=== PATIENT | female | born 1960 | race Caucasian/White ===

== ENCOUNTER 2020-06-16 13:33 | Outpatient (REF) | payer OTHER, SELFPAY ==
[2020-06-16 13:59] LABS: COVID-19 Test Negative (Negative)
== END 2020-06-16 13:34 | disposition home or self-care (01) ==
LOC: HO.LAB 13:33
PROVIDERS: Visit Provider Internal Medicine
DX: Z20.828 Contact with and (suspected) exposure to other viral communicable diseases (principal)
CPT/HCPCS: 87635

== ENCOUNTER 2020-07-20 07:26 | Day surgery (SDC) | payer OTHER, SELFPAY ==
[2020-07-09 11:06] VITALS: BMI 39.9
--- NOTE | 2020-07-13 15:24 | P.CONAN_ITS ---
Documented by User: Lissa Mendez 07/13/20 15:24 HPI - Anesthesia Eval Consult details Narrative: 59yo F for Upper Endoscopy and Colonoscopy [facility] Past Medical History Medical History (Updated 07/20/20 @ 08:17 by Yvette Rizzo) Hypertension IBS (irritable bowel syndrome) Increased BMI Migraines Surgical History Surgical History History of incisional hernia repair Hx of cholecystectomy Hx of shoulder surgery Hx of tonsillectomy Hx of total hysterectomy with removal of both tubes and ovaries Social History Social History Are you a primary out of school hours care worker to a significant other at home: No Do you presently have visiting nurse or other home services: No Smoking Status: Former smoker Smoking Quit Date: > 35 yrs ago Advance Directives: No Advance Directives Information Provided: No Advance Directives on File: No Meds Allergies Allergy/AdvReac Type Severity Reaction Status Date / Time No Known Allergies Allergy Verified 07/20/20 08:10 Home Medications Medication Instructions Recorded Confirmed Type dicyclomine 10 mg PO Q4-6H PRN 07/09/20 07/09/20 History lisinopril-hydrochlorothiazide 1 tab PO DAILY 07/09/20 07/09/20 History Exam Exam Date and Time: July 13, 2020 1524 Height,Weight and Vital Signs: Height 5 ft 5 in Weight 108.862 kg Assessment and Plan Assessment Anesthesia Assessment: Chart Reviewed Documented by User: Yvette Rizzo 07/20/20 08:19 [facility] Past Medical History Medical History (Updated 07/20/20 @ 08:17 by Yvette Rizzo) Hypertension IBS (irritable bowel syndrome) Increased BMI Migraines Family History Family history of problems with anesthesia: No Surgical History Surgical History History of incisional hernia repair Hx of cholecystectomy Hx of shoulder surgery Hx of tonsillectomy Hx of total hysterectomy with removal of both tubes and ovaries History of Problems with Anesthesia: No Social History Social History Are you a primary out of school hours care worker to a significant other at home: No Do you presently have visiting nurse or other home services: No Smoking Status: Former smoker Smoking Quit Date: > 35 yrs ago Advance Directives: No Advance Directives Information Provided: No Advance Directives on File: No Meds Allergies Allergy/AdvReac Type Severity Reaction Status Date / Time No Known Allergies Allergy Verified 07/20/20 08:10 Home Medications Medication Instructions Recorded Confirmed Type dicyclomine 10 mg PO Q4-6H PRN 07/09/20 07/09/20 History lisinopril-hydrochlorothiazide 1 tab PO DAILY 07/09/20 07/09/20 History Exam Height,Weight and Vital Signs: Vital Signs Temp Pulse Resp BP Pulse Ox 07/20/20 08:07 97.5 F 56 18 165/98 H 97 Airway Mallampati Class: III TM Dist: >3cm Neck ROM: Full Loose/Missing/Broken Teeth: Yes (Broken- 2 incisors top, back- top Right, top Left) Heart: RRR Lungs: CTAB Assessment and Plan Assessment Anesthesia Assessment: Anesthesia Plan Discussed and Chart Reviewed Final Anesthetic Review NPO: Yes ASA Class: III Final Preanesthetic Review: No Changes in Pt Med Stat, Meds/Allgs Chart Reviewed, Consent Obtained/Reviewed and Anes Risks/Benef Reviewed Patient Risk: Low Procedure Risk: Low Anesthetic Plan Anesthetic Plan: MAC: Disposition: Standard PACU
[2020-07-20 08:07] VITALS: BP 165/98; PULSE 56; RESP 18; TEMP 36.4; O2SAT 97
[2020-07-20] MEDS: Lactated Ringers 1,000 ML 100 ML IVCONT (08:12)
[2020-07-20 09:30] VITALS: BP 121/60; PULSE 64; RESP 16; TEMP 36.2; O2SAT 97
--- NOTE | 2020-07-20 09:34 | PM.OP ---
Brief Operative Note Date of Service: 07/20/20 Pre-op diagnosis: Abnormal Barium swallow, Screening Post-op diagnosis: other (Hiatal hernia, GERD, Rectal polyps, Diverticulosis) Procedure: EGD with biopsies and Colonoscopy to cecum and TI with biopsy and removal of polyps Surgeon: Morales Deras Anesthesia: MAC Estimated blood loss (mL): 3.0 Pathology: other (A. EG Junction at 36cm B.Rectal polyps) Condition: stable Disposition: PACU
[2020-07-20 09:45] VITALS: BP 129/69; PULSE 55; RESP 16; TEMP 36.2; O2SAT 97
[2020-07-20 09:59] VITALS: BP 125/52; PULSE 57; RESP 16; O2SAT 97
--- NOTE | 2020-07-20 10:05 | OP_ITS ---
SURGEON: Morales Deras MD INDICATIONS: The patient presents for evaluation of colorectal cancer screening and abdominal discomfort, as well as a somewhat abnormal barium swallow. Full consent has been obtained from her for both procedures, including risks of bleeding and perforation. PREOPERATIVE DIAGNOSIS: POSTOPERATIVE DIAGNOSIS: PROCEDURE PERFORMED: Esophagogastroduodenoscopy with biopsies and colonoscopy to cecum and terminal ileum with biopsy and removal of polyps. ESTIMATED BLOOD LOSS: COMPLICATIONS: ANESTHESIA: Monitored anesthesia care. ASSISTANTS: SPECIMENS: PREOPERATIVE DIAGNOSES: Abdominal discomfort, abnormal barium swallow, colorectal cancer screening. POSTOPERATIVE DIAGNOSES: Abdominal discomfort, abnormal barium swallow, colorectal cancer screening, small hiatal hernia, gastroesophageal reflux, small rectal polyps, diverticulosis, and internal hemorrhoids. DESCRIPTION OF PROCEDURE: The patient was placed in the left lateral decubitus position. The Olympus video gastroscope was passed in the posterior oropharynx and upper esophagus under direct vision. The scope was passed slowly into the distal esophagus. The gastroesophageal junction appeared at 36 cm. There was some slight irregularity and erythema, but no evidence of any esophagitis, definitive Prince's mucosa, nor any lesions. The scope was advanced to the pylorus and the duodenum was cannulated to the descending portion. The duodenum including the bulb appeared normal without mass or ulceration. The scope was withdrawn back into the stomach. The gastric antrum and body appeared normal with good peristalsis. The scope was retroflexed visualizing the proximal stomach carefully, which appeared normal, without any sign of mass or ulceration. The scope was straightened and withdrawn back in the esophagus. There was a small hiatal hernia noted. Biopsies were obtained at the EG junction at 36 cm. Proximal to this, the esophageal mucosa appeared normal. The proximal esophagus appeared normal as well without any sign of stricture nor web. There were no proximal esophageal rings. The scope was withdrawn from the patient. She was turned around for the colonoscopy. The digital rectal exam revealed no abnormalities. The Olympus video pediatric colonoscope was entered into the rectum and advanced easily to the cecum. Once in the cecum, I did identify normal-appearing cecal pouch with appendiceal orifice and a normal-appearing ileocecal valve. The terminal ileum was cannulated and appeared normal. Scope was withdrawn back in the colon. The entire cecum and ileocecal valve appeared normal. The scope was slowly withdrawn assessing all mucosal surfaces carefully. Preparation was excellent. There was a mild amount of sigmoid diverticulosis. I did not visualize any sign of colitis nor angiodysplasia. In the rectum, were flat less than 5 mm probable hyperplastic polyps, which were biopsied and completely removed with cold biopsy forceps. The scope was retroflexed visualizing some small internal hemorrhoids as well. The scope was straightened out and withdrawn from the patient. She tolerated both procedures well and was returned to the recovery area in stable condition. IMPRESSION: 1. Small rectal polyp, status post biopsy and removal. 2. Sigmoid diverticulosis. 3. Internal hemorrhoids. 4. Small hiatal hernia, gastroesophageal reflux. PLAN: The results of the biopsies will be checked. If the colon polyps are only hyperplastic, I would recommend a followup colonoscopy in 10 years. If they have to be a tubular adenoma, I would recommend a followup colonoscopy in 5 years. She is currently not having any upper GI complaints whatsoever and denies any significant heartburn nor dysphagia. As such, I do not think she needs to be treated for any reflux at this time, even if there is a small area of Prince's mucosa. If there is Prince's mucosa, without dysplasia, I would recommend a repeat upper endoscopy in 3 years. She is scheduled for an abdominal ultrasound. This has been discussed with her daughter. MD EFRAÍN Keene/ISIDRA / [phone]
== END 2020-07-20 23:59 | disposition home or self-care (01) ==
PROVIDERS: PCP Internal Medicine; Visit Provider Internal Medicine
PROC: (CPT 43239; principal; 2020-07-20 08:30)
DX: Z12.11 Encounter for screening for malignant neoplasm of colon (principal); K57.30 Diverticulosis of large intestine without perforation or abscess without bleeding; K64.8 Other hemorrhoids; K62.1 Rectal polyp; R13.14 Dysphagia, pharyngoesophageal phase; R93.3 Abnormal findings on diagnostic imaging of other parts of digestive tract; K44.9 Diaphragmatic hernia without obstruction or gangrene; K21.9 Gastro-esophageal reflux disease without esophagitis; I10 Essential (primary) hypertension; Z79.899 Other long term (current) drug therapy; Z90.49 Acquired absence of other specified parts of digestive tract
CPT/HCPCS: 43239; 45380; 88305

== ENCOUNTER 2020-09-10 13:32 | Outpatient (REF) | payer OTHER, SELFPAY ==
[2020-09-10 13:50] LABS: COVID-19 Test Negative (Negative)
== END 2020-09-10 13:33 | disposition home or self-care (01) ==
LOC: HO.EMPCOV 13:32
PROVIDERS: Visit Provider Internal Medicine
DX: Z20.822 Contact with and (suspected) exposure to COVID-19 (principal)
CPT/HCPCS: 36415; 87635; C9803

== ENCOUNTER 2020-09-16 08:17 | Outpatient (REF) | payer OTHER, SELFPAY ==
--- NOTE | 2020-09-16 | US_ITS ---
EXAMINATION: US ABDOMEN LIMITED CLINICAL INFORMATION: Abdominal pain. COMPARISON: None TECHNIQUE: Real-time imaging of the right upper quadrant abdominal viscera. FINDINGS: PANCREAS: Normal. LIVER: Liver echotexture is slightly increased. The liver is normal in size. The liver contour is normal. No focal hepatic lesion. There is no intrahepatic biliary duct dilatation seen. GALLBLADDER: Surgically absent. COMMON BILE DUCT: Normal in caliber measuring 0.9 cm in diameter. RIGHT KIDNEY: There is a 3 mm echogenic density in the lower pole questionable for a stone. No hydronephrosis or focal parenchymal lesions. The kidney measures 11.6 cm in maximum dimension. FREE FLUID: None. US/US abdomen limited IMPRESSION: Echogenic liver probably representing fatty infiltration. Postcholecystectomy. Question small right renal stone.
== END 2020-09-16 08:18 | disposition home or self-care (01) ==
LOC: HO.US 08:17
PROVIDERS: PCP Internal Medicine; Visit Provider Internal Medicine
DX: R10.33 Periumbilical pain (principal)
CPT/HCPCS: 76705

== ENCOUNTER 2020-12-31 15:17 | Outpatient (REF) | payer OTHER, SELFPAY ==
--- NOTE | ~2020-12-31 | XR_ITS ---
EXAMINATION: XR CHEST CLINICAL INFORMATION: Pain COMPARISON: Previous chest x-ray October 2017 TECHNIQUE: 2 views of the chest were obtained. FINDINGS: The cardiac and mediastinal contours are stable. The lungs are clear. There is no pleural effusion or pneumothorax. There are degenerative changes of the spine. There are postsurgical changes to the right shoulder. XR/XR chest 2V IMPRESSION: No evidence for acute disease in the chest.
--- NOTE | ~2020-12-31 | XR_ITS ---
EXAMINATION: BILATERAL HIP X-RAY CLINICAL INFORMATION: Pain COMPARISON: Previous x-ray July 2015 TECHNIQUE: 2 views of each hip FINDINGS: Right hip: Bone alignment is normal. No fracture or dislocation is seen. The joint space is normal. Soft tissues are normal. Left hip: Bone alignment is normal. No fracture or dislocation is seen. There is arthritis with joint space narrowing, small osteophytes and question some subchondral cyst formation. This is increased from July 2015 exam. There are postsurgical changes from left lower abdominal wall hernia repair. XR/XR hip LT min 2V IMPRESSION: Left hip arthritis increased from 2015. Normal-appearing right hip.
--- NOTE | ~2020-12-31 | XR_ITS ---
EXAMINATION: BILATERAL HIP X-RAY CLINICAL INFORMATION: Pain COMPARISON: Previous x-ray July 2015 TECHNIQUE: 2 views of each hip FINDINGS: Right hip: Bone alignment is normal. No fracture or dislocation is seen. The joint space is normal. Soft tissues are normal. Left hip: Bone alignment is normal. No fracture or dislocation is seen. There is arthritis with joint space narrowing, small osteophytes and question some subchondral cyst formation. This is increased from July 2015 exam. There are postsurgical changes from left lower abdominal wall hernia repair. XR/XR hip RT min 2V IMPRESSION: Left hip arthritis increased from 2015. Normal-appearing right hip.
[2020-12-31 17:40] LABS: MANUAL DIFF FLAG NO
[2020-12-31 17:48] LABS: Basophils Percent Auto 0.2 % (0-2); Eosinophils Absolute Auto 0.3 X10*3/uL (0.0-0.4); Eosinophils Percent Auto 2.8 % (0-4); Hemoglobin 12.8 g/dl (12.0-16.0); Imm Gran Abs Auto 0.04 X10*3/uL (0.00-0.03); Imm Gran Pct Auto 0.4 % (0.0-0.4); Lymphocytes Absolute Auto 2.6 X10*3/uL (1.2-4.9); Lymphocytes Percent Auto 26.3 % (20-40); Mean Corpuscular HGB Conc 31.2 g/dl (31.0-35.0); Mean Corpuscular Hemoglobin 27.5 pg (27.0-33.0); Mean Corpuscular Volume 88.2 fL (80-98); Mean Platelet Volume 10.9 fL (9.4-12.3); Monocytes Percent Auto 10.4 % (2-11); Neutrophils Absolute Auto 5.9 X10*3/uL (2.0-8.3); Neutrophils Percent Auto 59.9 % (45-73); Platelet Count 363 X10*3/uL (160-400); Red Blood Count 4.65 X10*6/uL (4.20-5.50); Red Cell Distribution Width 13.5 % (11.0-16.0); White Blood Count 9.8 X10*3/uL (4.8-10.8)
[2020-12-31 18:05] LABS: Alanine Aminotransferase 27 U/L (0-31); Albumin Level 4.4 g/dL (3.5-5.0); Alkaline Phosphatase 76 U/L (39-117); Anion Gap 15 (12-20); Aspartate Amino Transferase 24 U/L (5-31); Bilirubin Direct < 0.2 mg/dL (0.0-0.5); Bilirubin Total 0.4 mg/dL (0.0-1.0); Blood Urea Nitrogen 20 mg/dL (9-16); Calcium 9.4 mg/dL (8.4-10.2); Carbon Dioxide 24 mmol/L (22-29); Chloride 106 mmol/L (96-108); Cholesterol 264 mg/dL; Estimated Glomerular Filt Rate > 60; Glucose Random 95 mg/dL (60-115); HDL Cholesterol 46 mg/dL; LDL Cholesterol Calculated 188 mg/dl; Potassium 3.9 mmol/L (3.3-5.1); Sodium 141 mmol/L (135-145); Total Protein 7.4 g/dL (6.5-8.0); Triglycerides 151 mg/dL
[2020-12-31 18:28] LABS: T4 Thyroxine 5.7 ug/dL (4.5-12.0); Thyroid Stimulating Hormone 5.18 uIU/mL (0.32-4.0)
[2020-12-31 18:34] LABS: Folate 4.5 ng/mL (> or = 4.0); Vitamin B12 350 pg/mL (200-900)
[2020-12-31 18:41] LABS: Erythrocyte Sedimentation Rate 10 MM/HR (0-20)
[2021-01-03 20:42] LABS: Anti Nuclear Antibody Screen NEGATIVE (NEGATIVE)
== END 2020-12-31 15:18 | disposition home or self-care (01) ==
LOC: HO.LAB 15:17
PROVIDERS: Visit Provider Internal Medicine
DX: E78.5 Hyperlipidemia, unspecified (principal); I10 Essential (primary) hypertension
CPT/HCPCS: 36415; 71046; 73502; 80048; 80061; 80076; 82607; 82746; 84436; 84443; 85025; 85652; 86038; 86039

== ENCOUNTER 2021-01-05 13:38 | Outpatient (REF) | payer OTHER, SELFPAY ==
[2021-01-05 17:07] LABS: Glucose Urine UA NEG (NEG); Leukocyte Esterase Urine 1+ (NEG); Nitrite Urine NEG (NEG); PH 5.5 (5.0-8.0); Urine Blood NEG (NEG); Urine Ketones NEG (NEG); Urine Protein NEG (NEG-TRACE)
[2021-01-05 17:58] LABS: Appearance Urine CLEAR; Color Urine YELLOW
[2021-01-05 18:03] LABS: Creatinine Urine 98.92 mg/dL; Microalbum/Creatinine Ratio Ur 32.3 ug/mg cr
[2021-01-05 18:38] LABS: RBC Urine 0 /HPF (0); Renal Epithelial Cells Urine 1+ /LPF; Squamous Epithelial Cell Urine 1+ /LPF
== END 2021-01-05 13:39 | disposition home or self-care (01) ==
LOC: HO.LNPL 13:38
PROVIDERS: Visit Provider Internal Medicine
DX: E78.5 Hyperlipidemia, unspecified (principal); I10 Essential (primary) hypertension
CPT/HCPCS: 81001; 81003; 82043

== ENCOUNTER 2021-01-07 13:32 | Outpatient (REF) | payer OTHER, SELFPAY ==
[2021-01-07 13:51] LABS: COVID-19 Test Negative (Negative)
== END 2021-01-07 13:33 | disposition home or self-care (01) ==
LOC: HO.EMPCOV 13:32
PROVIDERS: Visit Provider Internal Medicine
DX: Z20.822 Contact with and (suspected) exposure to COVID-19 (principal)
CPT/HCPCS: 36415; 87635; C9803

== ENCOUNTER 2021-02-17 13:57 | Outpatient (REF) | payer OTHER, SELFPAY ==
[2021-02-17 15:12] LABS: Anion Gap 12 (12-20); Blood Urea Nitrogen 16 mg/dL (9-16); Calcium 9.3 mg/dL (8.4-10.2); Carbon Dioxide 26 mmol/L (22-29); Chloride 108 mmol/L (96-108); Estimated Glomerular Filt Rate > 60; Glucose Random 102 mg/dL (60-115); Potassium 3.7 mmol/L (3.3-5.1); Sodium 142 mmol/L (135-145)
== END 2021-02-17 13:58 | disposition home or self-care (01) ==
LOC: HO.LAB 13:57
PROVIDERS: PCP Internal Medicine; Visit Provider Internal Medicine
DX: R79.89 Other specified abnormal findings of blood chemistry (principal)
CPT/HCPCS: 36415; 80048

== ENCOUNTER 2021-02-18 08:42 | Outpatient (REF) | payer OTHER, SELFPAY ==
--- NOTE | ~2021-02-18 | CT_ITS ---
EXAMINATION: CT ANGIOGRAM BRAIN, HEAD CLINICAL INFORMATION: Headache. COMPARISON: None TECHNIQUE: Test bolus sequences followed by intravenous administration 100 mL of Omnipaque 350 intravenous contrast. Helical imaging was performed in the axial plane from the skull base to the vertex. Delayed postcontrast imaging of the head was also performed. The data was processed at the certified performance technologist workstation for generation of MIP sequences. Three-dimensional volume rendered reformatted images were also generated at an offline 3-D workstation. Stenoses are made with reference to the NASCET criteria unless otherwise specified. This CT examination was performed using dose optimization techniques as appropriate, variously including the following: *Automated exposure control *Adjustment of mA and/or kV according to patient size (this includes techniques or standardized protocols for targeted exams where dose is matched to indication/reason for exam; i.e. extremities or head) *Use of iterative reconstruction technique DLP: 2128 mGy-cm FINDINGS: UNENHANCED AND IV CONTRAST-ENHANCED CT OF THE HEAD: The ventricles and sulci are normal in size and configuration. No focal parenchymal lesions in the brain are identified. No intracranial hemorrhage, tumors or acute infarcts are visualized. Minimal segmental calcific atherosclerotic plaques are identified within the cavernous portions of the internal carotid arteries. No abnormal enhancement of the brain parenchyma is visualized. Normal intraluminal opacification is noted within the major intracranial dural sinuses. The maxillary sinuses are partially included in the imaged [id number]. Near-complete opacification of the visualized left maxillary sinus is noted along with concentric mural thickening and sclerosis of the maxillary sinus. Subsequent CT angiographic images include the entirety of the maxillary sinuses and demonstrate partial visualization of periapical abscesses associated with the left maxillary molars, possibly the left 2nd maxillary molar, though the dentition is not fully included in the imaged [id number]. Additionally, periapical lucencies are noted in association with multiple right maxillary teeth which are only partially included in the imaged [id number], possibly involving the premolars and 1st and 2nd right maxillary molars. Dehiscence of the inferior taylor of the left and right maxillary sinuses is noted contiguous with the areas of periapical lucencies suggesting possible odontogenic sinusitis. CT ANGIOGRAPHY HEAD: The left vertebral artery is dominant. origin of the right posterior cerebral artery is noted. No large vessel intracranial occlusions are identified. No stenoses or aneurysms are visualized. An anterior communicating artery is noted. Multiple 3-D angiographic thick section MIP images processed on a technologist workstation confirm findings made upon review of the initial axial image data set. The incidentally and partially visualized upper cervical carotid and vertebral artery systems are normal in appearance. CT/CT angio head IMPRESSION: UNENHANCED AND IV CONTRAST-ENHANCED CT OF THE HEAD: 1. Minimal segmental calcific atherosclerosis of the cavernous portions of the intracranial internal carotid arteries; otherwise, no intracranial abnormalities. 2. Chronic left maxillary sinus with near-complete filling of the left maxillary sinus with retained secretions and mucosal thickening. Additionally, partial visualization is made of bilateral maxillary dentition chronic periapical abscesses, some of which are dehiscent with and potentially erode into the left and right maxillary sinuses and may be sources of odontogenic sinusitis. The right maxillary sinus demonstrates soft tissue density filling the inferior aspect of the sinus which may represent focal mucosal inflammatory changes or a mucosal retention cyst. As clinically indicated, the paranasal sinuses may be further evaluated with dedicated maxillofacial CT. CT ANGIOGRAPHY HEAD: Negative. No large vessel intracranial occlusions. No aneurysms or arteriopathy aside from minimal nonocclusive calcific atherosclerosis of the cavernous portions of the internal carotid arteries.
== END 2021-02-18 08:43 | disposition home or self-care (01) ==
LOC: HO.CT 08:42
PROVIDERS: Visit Provider Internal Medicine
DX: R51.9 Headache, unspecified (principal)
CPT/HCPCS: 70496

== ENCOUNTER 2021-02-23 14:00 | Outpatient (REF) | payer OTHER, SELFPAY ==
[2021-02-23 14:47] LABS: MANUAL DIFF FLAG NO
[2021-02-23 14:52] LABS: Basophils Absolute Auto 0.1 X10*3/uL (0.0-0.2); Basophils Percent Auto 0.4 % (0-2); Eosinophils Absolute Auto 0.4 X10*3/uL (0.0-0.4); Eosinophils Percent Auto 3.8 % (0-4); Hematocrit 42.1 % (37-47); Hemoglobin 13.5 g/dl (12.0-16.0); Imm Gran Abs Auto 0.07 X10*3/uL (0.00-0.03); Imm Gran Pct Auto 0.6 % (0.0-0.4); Lymphocytes Absolute Auto 3.8 X10*3/uL (1.2-4.9); Lymphocytes Percent Auto 33.6 % (20-40); Mean Corpuscular HGB Conc 32.1 g/dl (31.0-35.0); Mean Corpuscular Hemoglobin 28.6 pg (27.0-33.0); Mean Corpuscular Volume 89.2 fL (80-98); Mean Platelet Volume 10.8 fL (9.4-12.3); Monocytes Absolute Auto 1.2 X10*3/uL (0.1-1.2); Monocytes Percent Auto 10.9 % (2-11); Neutrophils Absolute Auto 5.7 X10*3/uL (2.0-8.3); Neutrophils Percent Auto 50.7 % (45-73); Platelet Count 432 X10*3/uL (160-400); Red Blood Count 4.72 X10*6/uL (4.20-5.50); Red Cell Distribution Width 13.3 % (11.0-16.0); White Blood Count 11.3 X10*3/uL (4.8-10.8)
[2021-02-23 15:06] LABS: Anion Gap 16 (12-20); Blood Urea Nitrogen 16 mg/dL (9-16); Calcium 10.1 mg/dL (8.4-10.2); Carbon Dioxide 26 mmol/L (22-29); Chloride 104 mmol/L (96-108); Estimated Average Glucose 111 mg/dL; Estimated Glomerular Filt Rate 57; Glucose Random 90 mg/dL (60-115); Hemoglobin A1c % 5.5 %; Potassium 4.2 mmol/L (3.3-5.1); Sodium 142 mmol/L (135-145)
[2021-02-23 15:29] LABS: Free T4 (Free Thyroxine) 0.74 ng/dL (0.71-1.85)
[2021-02-23 16:43] LABS: Thyroid Stimulating Hormone 6.22 uIU/mL (0.32-4.0)
== END 2021-02-23 14:01 | disposition home or self-care (01) ==
LOC: HO.LAB 14:00
PROVIDERS: PCP Internal Medicine; Visit Provider Internal Medicine
DX: R53.83 Other fatigue (principal)
CPT/HCPCS: 36415; 80048; 83036; 84439; 84443; 85025

== ENCOUNTER 2021-03-02 10:26 | Outpatient (REF) | payer OTHER, SELFPAY ==
--- NOTE | ~2021-03-02 | US_ITS ---
EXAMINATION: US THYROID CLINICAL INFORMATION: Follow up thyroid nodule. COMPARISON: Thyroid ultrasound 11/28/2017. TECHNIQUE: Linear transducer grayscale and color Doppler examination with attention to the region of the thyroid. FINDINGS: SIZE: Measurements of the thyroid lobes and nodules are given in sagittal, anteroposterior and transverse dimensions respectively. Right Thyroid Lobe: 3.3 x 1.6 x 1.8 cm, volume 5.0 mL. Previously 3.8 x 1.8 x 1.6 cm, volume 5.6 mL. Parenchyma: The gland echotexture is heterogeneous. Thyroid vascularity is normal. Left Thyroid Lobe: 3.1 x 1.4 x 1.9 cm, volume 4.3 mL. Previously 3.8 x 1.3 x 1.4 cm, volume 3.5 mL. Parenchyma: The gland echotexture is heterogeneous. Thyroid vascularity is normal. Isthmus: 0.6 cm in maximum AP dimension. Previously 0.6 cm. No focal thyroid nodule is seen. NODES: No lymphadenopathy is seen in the tissue surrounding the thyroid gland. US/US thyroid IMPRESSION: Slightly heterogeneous thyroid gland without enlargement. No focal nodule seen. ACR TI-RADS RECOMMENDATION REFERENCE: Ultrasound-guided fine-needle aspiration, followup ultrasound, no further follow up. * TR1 (0 point) and TR 2 (2 points): No FNA or follow up * TR3 (3 points): FNA if more than or equal to 2.5 cm in maximum dimension, followup ultrasound in 1, 3 and 5 years if 1.5 to 2.4 cm in maximum dimension. * TR4 (4-6 points): FNA if more than or equal to 1.5 cm in maximum dimension, followup ultrasound in 1, 2, 3 and 5 years if 1 to 1.4 cm in maximum dimension. * TR5 (more than or equal to 7 points): FNA if more than or equal to 1 cm in maximum dimension, followup ultrasound every year for 5 years if 0.5 to 0.9 cm in maximum dimension. * TR3, TR4 or TR5 nodules that are below the size threshold for follow up receive no follow up.
== END 2021-03-02 10:27 | disposition home or self-care (01) ==
LOC: HO.US 10:26
PROVIDERS: Visit Provider Internal Medicine
DX: E04.1 Nontoxic single thyroid nodule (principal)
CPT/HCPCS: 76536

== ENCOUNTER → 2021-03-03 08:52 | Outpatient (BNVA) | payer OTHER, SELFPAY | PROVIDERS: PCP Internal Medicine; Visit Provider Orthopaedic Surgery ==

== ENCOUNTER 2021-03-17 13:30 | Outpatient (REF) | payer OTHER, SELFPAY ==
--- NOTE | ~2021-03-17 | FL_ITS ---
EXAMINATION: XR ARTHROGRAM HIP, LEFT CLINICAL INFORMATION: Primary osteoarthritis left hip COMPARISON: Left hip 12/31/2020 TECHNIQUE: Following explaining fluoroscopy-guided left hip arthrogram procedure, benefits and risk, a consent was obtained. Patient was placed supine on fluoroscopy table and anterior aspect of left hip joint was cleaned and draped in usual sterile manner. 1% lidocaine was injected at the skin overlying the left femoral head and neck junction. A 22-gauge spinal needle was then advanced from the skin to the junction of left femoral head and neck lateral cortex and 2 mL of nonionic contrast was injected. A single image was obtained for documentation. Subsequently 80 mg of without prednisone, 4 mL of 1% lidocaine and 4 mL of 0.25% 18 was injected is a 9 mL volume and needle withdrawn. Complete hemostasis achieved at puncture site. Sterile Band-Aid applied postprocedure. Patient tolerated procedure extremely well. FINDINGS: There is no visible acute fracture or dislocation. There is severe loss of left hip joint space with periarticular spurring. Successful fluoroscopy-guided left hip steroid injection performed. FLUOROSCOPY TIME: 1.8 minutes DOSE AREA PRODUCT: 20.447 uGy-m2 (microgray-meter squared) FL/FL arthrogram hip LT IMPRESSION: Successful fluoroscopy-guided left hip steroid injection performed. There is severe loss of left hip joint space with periarticular spurring.
== END 2021-03-17 13:31 | disposition home or self-care (01) ==
LOC: HO.XRAY 13:30
PROVIDERS: PCP Internal Medicine; Visit Provider Orthopaedic Surgery
DX: M16.12 Unilateral primary osteoarthritis, left hip (principal)
CPT/HCPCS: 27093; 73525

== ENCOUNTER 2021-04-04 15:36 | Outpatient (REF) | payer OTHER, SELFPAY ==
[2021-04-04 15:58] LABS: COVID-19 Test Negative (Negative)
== END 2021-04-04 15:37 | disposition home or self-care (01) ==
LOC: HO.LAB 15:36
PROVIDERS: Visit Provider Internal Medicine
DX: Z20.822 Contact with and (suspected) exposure to COVID-19 (principal)
CPT/HCPCS: 36415; 87635

== ENCOUNTER 2021-04-08 14:09 | Outpatient (REF) | payer OTHER, SELFPAY ==
--- NOTE | ~2021-04-08 | XR_ITS ---
EXAMINATION: XR CHEST CLINICAL INFORMATION: Cough COMPARISON: Chest radiographs 12/31/2020, 10/30/2017 TECHNIQUE: 2 views of the chest were obtained. FINDINGS: There is no hyperinflation, airspace consolidation, or groundglass opacity. No pleural reaction or effusion. The costophrenic sulci are clear. The heart is normal in size. The hilar and mediastinal contours are normal. No visible acute bony abnormality. XR/XR chest 2V IMPRESSION: Unremarkable examination.
== END 2021-04-08 14:10 | disposition home or self-care (01) ==
LOC: HO.LAB 14:09
PROVIDERS: PCP Internal Medicine; Visit Provider Internal Medicine
DX: R05 Cough (principal)
CPT/HCPCS: 71046

== ENCOUNTER 2021-07-02 09:26 | Outpatient (REF) | payer OTHER, SELFPAY ==
--- NOTE | ~2021-07-02 | XR_ITS ---
EXAMINATION: XR PELVIS CLINICAL INFORMATION: Pain COMPARISON: Previous x-ray December 2020 TECHNIQUE: One view of the pelvis FINDINGS: No fracture or dislocation is seen. There is severe arthritis of the left hip joint with joint space narrowing, osteophyte formation and some subchondral cyst formation. Right hip joint is normal. Bones of the pelvis are normal. There are degenerative changes of the lower lumbar spine. There is evidence of previous hernia repair with mesh over the left side of the lower abdomen. XR/XR pelvis 1-2V IMPRESSION: Severe left hip arthritis.
== END 2021-07-02 09:27 | disposition home or self-care (01) ==
LOC: HO.HOSX 09:26
PROVIDERS: Visit Provider Orthopaedic Surgery
DX: M16.12 Unilateral primary osteoarthritis, left hip (principal)
CPT/HCPCS: 72170

== ENCOUNTER → 2021-07-21 11:17 | Outpatient (REF) | payer OTHER, SELFPAY ==
--- NOTE | 2021-07-21 11:30 | CA_ITS ---
Transthoracic Echocardiogram Patient (Last, First, Middle): Josi Arvizu, Gender: Female Date of : 1960 Age: 60 Procedure Date: 07/21/2021 Procedure Type: Transthoracic Echocardiogram Location: OP Height: 165.1 cm Weight: 108.86 kg BSA: 2.14 m2 Heart Rate: bpm BP: 122 / 78 mmHg Plycor Operator: COLTEN Referring MD: Collins Irene MD Symptoms: MURMUR. PRE OP Study Quality: Good ECG Rhythm: Sinus Conclusions: - The left ventricular systolic function is normal. The calculated ejection fraction is 65% by biplane method. - There is mild calcification of the aortic valve. Findings Left Ventricle Normal left ventricular cavity size. There is mildly increased left ventricular wall thickness. The left ventricular systolic function is normal. The calculated ejection fraction is 65% by biplane method. There is no evidence of regional wall motion abnormalities. Diastolic function is normal for age. Right Ventricle Normal right ventricular cavity size and systolic function. Atria Both atria are normal in size. Aortic Valve There is a normal trileaflet aortic valve. There is mild calcification of the aortic valve. There is no aortic valve stenosis. The mean gradient is 13 mmHg. The aortic valve area is 2.18 cm2. Trace to mild aortic regurgitation. Mitral Valve The mitral valve appears normal. There is trace mitral valve regurgitation. There is no mitral valve stenosis. Pulmonic Valve The pulmonic valve was not well visualized. Tricuspid Valve Normal tricuspid valve structure. There is trace tricuspid valve regurgitation. The pulmonary artery systolic pressure is normal. Great Vessels The asc aorta and aortic arch are normal in size. Venous The inferior vena cava is normal in size and collapses greater than 50% with inspiration. Pericardium/Pleural There is no evidence of pericardial effusion. Prior Study Comparison No significant change compared to prior study dated: 12/21/2017. Measurements 2D Linear Measurements IVSd: 1.00 0.6-0.9/0.6-1.0 cm LVIDd: 4.37 3.9-5.3/4.2-5.9 cm LVIDd Index: 2.04 2.4-3.2/2.2-3.1 cm/m2 LVIDs: 3.00 2.0-3.6 cm LVPWd: 1.09 0.7-1.1 cm Ao Root: 3.00 2.1-3.5 cm LA Diam: 4.10 2.7-3.8/3.0-4.0 cm LAIDs Index: 1.92 1.5-2.3 cm/m2 LV Mass: 193.58 67-162/88-224 g LV Mass Index: 90.46 43-95/49-115 g/m2 LVOT Diam: 2.00 3.0+(-)1.3 cm 2D Systolic Function EF 4C: 62.00 >55% EF 2C: 66.70 >55% EF BiP: 65.40 >55% Mitral Valve MV Pk E: 0.96 MV PK A: 0.91 MV Decel Time: 302.00 E/A: 1.00 E'Lateral: 12.60 E'Medial: 7.51 E/E' Med: 12.70 E/E' Lat: 7.60 PHT: 88.00 MVA PHT: 2.50 Decel Gray: 3.17 Aortic Valve AoV Pk Luis: 2.48 AoV Mn Luis: 1.74 AoV VTI: 0.55 AoV Pk Grad: 25.00 Aov Mn Grad: 13.00 TYRA Cont.VTI: 2.18 AI Pk Luis: 4.37 AI Gray: 1.86 LVOT LVOT Pk Luis: 1.84 LVOT Mn Luis: 1.17 LVOT VTI: 0.38 LVOT Pk Grad: 14.00 LVOT Mn Grad: 7.00 LVOT Diam: 2.00 LVOT Area: 3.14 Diastolic Function MV Pk E: 0.96 MV Pk A: 0.91 E/A: 1.00 E'Medial: 7.51 E/E' Med: 12.70 E' Laterial: 12.60 E/E' Lat: 7.60 Right Ventricle TAPSE (mm): 2.49 TVS' Luis: 14.80 Tricuspid Valve TR Pk Luis: 2.57 TR Pk Grad: 26.00 RA Press: 8.00 RVSP: 34.00 Great Vessels Aorta Ao Root-2D: 3.00 2.0-3.7 cm Ao Asc: 3.40 2.1-3.4 cm Ao Arch: 3.10 Updated in Other Vendor System with Status of Final Jourdan Baez MD electronically signed on 07/22/2021 12:03:17 PM with status of Final
== END ==
LOC: HO.CARD 11:17
PROVIDERS: Visit Provider Internal Medicine
DX: Z01.818 Encounter for other preprocedural examination (principal); R01.1 Cardiac murmur, unspecified
CPT/HCPCS: 93306

== ENCOUNTER 2021-07-26 09:48 | Outpatient (REF) | payer OTHER, SELFPAY ==
[2021-07-26 11:05] LABS: COVID-19 Test Positive (Negative)
== END 2021-07-26 09:49 | disposition home or self-care (01) ==
LOC: HO.LAB 09:48
PROVIDERS: Visit Provider Internal Medicine
DX: Z20.822 Contact with and (suspected) exposure to COVID-19 (principal)
CPT/HCPCS: 36415; 87635; C9803

== ENCOUNTER → 2021-08-10 08:25 | Outpatient (BNVA) | payer OTHER, SELFPAY | PROVIDERS: Visit Provider Physician Assistant ==

== ENCOUNTER 2021-08-12 12:58 | Outpatient (REF) | payer OTHER, SELFPAY ==
[2021-08-12 14:12] LABS: MRSA Nasal PCR NEGATIVE (Negative); SA Nasal PCR NEGATIVE (Negative)
== END 2021-08-12 12:59 | disposition home or self-care (01) ==
LOC: HO.LNP 12:58
PROVIDERS: Visit Provider Orthopaedic Surgery
DX: M19.90 Unspecified osteoarthritis, unspecified site (principal)
CPT/HCPCS: 87640; 87641

== ENCOUNTER 2021-08-17 06:08 | Inpatient (IN) | payer OTHER, SELFPAY ==
[2021-08-10 09:57] LABS: MANUAL DIFF FLAG NO
[2021-08-10 10:03] LABS: Basophils Percent Auto 0.3 % (0-2); Eosinophils Absolute Auto 0.3 X10*3/uL (0.0-0.4); Eosinophils Percent Auto 3.3 % (0-4); Hemoglobin 13.5 g/dl (12.0-16.0); Imm Gran Abs Auto 0.07 X10*3/uL (0.00-0.03); Imm Gran Pct Auto 0.7 % (0.0-0.4); Lymphocytes Percent Auto 20.9 % (20-40); Mean Corpuscular HGB Conc 31.4 g/dl (31.0-35.0); Mean Corpuscular Hemoglobin 27.5 pg (27.0-33.0); Mean Corpuscular Volume 87.6 fL (80.0-98.0); Mean Platelet Volume 10.8 fL (9.4-12.3); Monocytes Absolute Auto 1.2 X10*3/uL (0.1-1.2); Neutrophils Absolute Auto 5.8 x10*3/uL (2.0-8.3); Neutrophils Percent Auto 61.8 % (45-73); Platelet Count 479 X10*3/uL (160-400); Red Blood Count 4.91 X10*6/uL (4.20-5.50); Red Cell Distribution Width 13.2 % (11.0-16.0); White Blood Count 9.4 X10*3/uL (4.8-10.8)
[2021-08-10 11:06] LABS: Anion Gap 14 (12-20); Blood Urea Nitrogen 26 mg/dL (9-16); Calcium 9.6 mg/dL (8.4-10.2); Carbon Dioxide 25 mmol/L (22-29); Chloride 110 mmol/L (96-108); Estimated Glomerular Filt Rate 55; Glucose Random 102 mg/dL (60-115); Potassium 4.6 mmol/L (3.3-5.1); Sodium 144 mmol/L (135-145)
[2021-08-10 13:06] VITALS: BMI 40.6
[2021-08-12 11:50] VITALS: BP 178/103; PULSE 61; RESP 18; O2SAT 97
--- NOTE | 2021-08-12 12:12 | HO.ANESPROP2 ---
Documented by User: Lissa Mendez NP 08/12/21 12:28 HPI - Anesthesia Eval Consult details Narrative: 60yo F for Left Hip Total Replacement PCP cleared Covid ~07/21/21, fully recovered at PAT. No SOB, No cough PMFSH Active Problems Active Problems: All Active Problems (Updated 08/10/21 @ 13:02 by Areli Garcia, RN) Primary osteoarthritis of left hip (Acute) Increased BMI (Acute) Past Medical History Medical History Cough Depression History of blood transfusion Hx of cardiac murmur Hypertension Hypothyroid IBS (irritable bowel syndrome) Increased BMI Migraines Personal history of COVID-19 Family History Family history of problems with anesthesia: No Surgical History Surgical History History of incisional hernia repair Hx of cholecystectomy Hx of colonoscopy Hx of shoulder surgery Hx of tonsillectomy Hx of total hysterectomy with removal of both tubes and ovaries History of Problems with Anesthesia: No Social History Social History Are you a primary child care education coordinator to a significant other at home: No Do you presently have visiting nurse or other home services: No Patient Tobacco Use Status: Former Tobacco user Quit Date: 1983 Tobacco use type: Cigarette Have you been hit, kicked, punched, or otherwise hurt by someone within the past year? 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 - [employer] Narrative Narrative: Covid recent, recoved No chest pain with activity within likits if hip pain Meds Allergies Allergy/AdvReac Type Severity Reaction Status Date / Time No Known Allergies Allergy Verified 08/10/21 13:05 Home Medications Medication Instructions Recorded Confirmed Last Taken Type dicyclomine 10 mg capsule 10 mg PO Q4-6H PRN 07/09/20 08/10/21 Unknown History amlodipine 5 mg tablet 5 mg PO DAILY 03/03/21 08/10/21 08/17/21 05:00 History carvedilol 12.5 mg tablet 12.5 mg PO BID 03/03/21 08/10/21 08/17/21 05:00 History citalopram 10 mg tablet 10 mg PO DAILY 03/03/21 08/10/21 08/17/21 05:00 History lisinopril 20 1 tab PO DAILY 03/03/21 08/10/21 Unknown History mg-hydrochlorothiazide 25 mg tablet levothyroxine 50 mcg tablet 1 tab PO DAILY 08/10/21 08/10/21 08/17/21 05:00 History Exam Exam Date and Time: August 12, 2021 1212 Height,Weight and Vital Signs: Height 5 ft 5 in Weight 110.677 kg Last Vital Signs Pulse 61 08/12/21 11:50 Resp 18 08/12/21 11:50 BP 178/103 H 08/12/21 11:50 Pulse Ox 97 08/12/21 11:50 Pertinent Lab Results Pertinent Lab Results: Laboratory Tests 08/10/21 08/10/21 08/10/21 09:53 09:56 09:56 WBC 9.4 RBC 4.91 Hgb 13.5 Hct 43.0 MCV 87.6 MCH 27.5 MCHC 31.4 RDW 13.2 Plt Count 479 H MPV 10.8 Immature Gran % (Auto) 0.7 H Neut % (Auto) 61.8 Lymph % (Auto) 20.9 [place] % (Auto) 13.0 H Eos % (Auto) 3.3 Baso % (Auto) 0.3 Lymph # (Auto) 2.0 [place] # (Auto) 1.2 Eos # (Auto) 0.3 Baso # (Auto) 0.0 Abs Immat Gran (auto) 0.07 H Absolute Neuts (auto) 5.8 Absolute Nucleated RBC 0.000 Nucleated RBC % (auto) 0.0 Sodium 144 Potassium 4.6 Chloride 110 H Carbon Dioxide 25 Anion Gap 14 BUN 26 H Creatinine 1.03 Estim Creat Clear Calc TNP Estimated GFR 55 Random Glucose 102 Calcium 9.6 Blood Type A Positive Antibody Screen NEGATIVE Narrative Narrative: ECHO 07/2021 Conclusions: - The left ventricular systolic function is normal.? The ? calculated ejection fraction is 65% by biplane method. ? - There is mild calcification of the aortic valve. ?? EKG ar PCP NSR, Nonspecific ST-T wave abnormality Airway Mallampati Class: II TM Dist: >3cm Neck ROM: Full Adult Head Mouth w/Numbe Teeth: 1. 8&9 chipped, risk to teeth discussed in detail Loose/Missing/Broken Teeth: Yes (Front chipped,molars broken) Heart: RRR, +M Lungs: CTAB Assessment and Plan Assessment Anesthesia Assessment: Anesthesia Plan Discussed and PAT Visit Final Anesthetic Review Family History of Problems with Anesthesia: No History of Problems with Anesthesia: No Documented by User: Mejia Bustillos MD 08/17/21 07:55 HPI - Anesthesia Eval Consult details Narrative: 60yo F for Left Hip Total Replacement. PCP cleared. Covid +ve 07/26/21, no SOB or cough at PAT visit. Denies symptoms DOS but tested positive again roughly 23 days out. Discussed case with director of rooms who states she is to be treated as a COVID negative patient per policy. DOS test was done as part of usual screening for all patients and not as a follow up. Discussed increased risk of complications following recent COVID infection, especially respiratory and thrombotic, including post-operative ventilation, ICU admission and . Patient understands and does not want to delay elective surgery. [facility] Past Medical History Medical History Cough Depression History of blood transfusion Hx of cardiac murmur Hypertension Hypothyroid IBS (irritable bowel syndrome) Increased BMI Migraines Personal history of COVID-19 Surgical History Surgical History History of incisional hernia repair Hx of cholecystectomy Hx of colonoscopy Hx of shoulder surgery Hx of tonsillectomy Hx of total hysterectomy with removal of both tubes and ovaries Social History Social History Are you a primary child care education coordinator to a significant other at home: No Do you presently have visiting nurse or other home services: No Patient Tobacco Use Status: Former Tobacco user Quit Date: 1983 Tobacco use type: Cigarette Have you been hit, kicked, punched, or otherwise hurt by someone within the past year? 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 - [employer] Meds Allergies Allergy/AdvReac Type Severity Reaction Status Date / Time No Known Allergies Allergy Verified 08/10/21 13:05 Home Medications Medication Instructions Recorded Confirmed Last Taken Type dicyclomine 10 mg capsule 10 mg PO Q4-6H PRN 07/09/20 08/10/21 Unknown History amlodipine 5 mg tablet 5 mg PO DAILY 03/03/21 08/10/21 08/17/21 05:00 History carvedilol 12.5 mg tablet 12.5 mg PO BID 03/03/21 08/10/21 08/17/21 05:00 History citalopram 10 mg tablet 10 mg PO DAILY 03/03/21 08/10/21 08/17/21 05:00 History lisinopril 20 1 tab PO DAILY 03/03/21 08/10/21 Unknown History mg-hydrochlorothiazide 25 mg tablet levothyroxine 50 mcg tablet 1 tab PO DAILY 08/10/21 08/10/21 08/17/21 05:00 History Exam Airway Adult Head Mouth w/Numbe Teeth: 1. 8&9 chipped, risk to teeth discussed in detail Assessment and Plan Final Anesthetic Review NPO: Yes ASA Class: III Final Preanesthetic Review: No Changes in Pt Med Stat, Meds/Allgs Chart Reviewed, Consent Obtained/Reviewed and Anes Risks/Benef Reviewed Patient Risk: Intermediate Procedure Risk: Intermediate Anesthetic Plan Anesthetic Plan: GA Disposition: Standard PACU
[2021-08-17] VITALS (19 sets, daily range): BP systolic 105–147; BP diastolic 56–99; PULSE 69–92; RESP 15–20; TEMP 36.3–37.1; O2SAT 94–99
--- NOTE | ~2021-08-17 | XR_ITS ---
EXAMINATION: XR PELVIS CLINICAL INFORMATION: Status post total left hip arthroplasty. COMPARISON: Radiograph of the pelvis dated from 07/02/2021. TECHNIQUE: AP view of the pelvis. FINDINGS: Expected immediate postoperative changes following placement of a total left-sided hip prosthesis with postoperative subcutaneous air and edema. No evidence of prosthetic fractures or malalignment. No unexpected radiopaque foreign bodies. Moderate degenerative changes of the right hip. XR/XR pelvis 1-2V IMPRESSION: Status post total left-sided hip arthroplasty without evidence of acute fractures or malalignment.
[2021-08-17 06:39] LABS: COVID-19 Test Positive (Negative)
[2021-08-17] MEDS: oxyCODONE HCl ER 10 MG TAB.ER.12H PO ×2 (06:40→19:57)
[2021-08-17] MEDS: Lactated Ringers 1,000 ML 100 ML IVCONT (07:02)
--- NOTE | 2021-08-17 07:51 | MHC.SHP ---
Pre-Procedural Eval Section A Date of Service: 08/17/21 The patient is an INPATIENT: No Changes since office visit: Yes Patient answered all questions; No Cold of Flu in the past 2 weeks, No New Medical Problems and No Changes in Medication The History & Physical has been completed within 30 days and I have reviewed it.: Yes Section B Chief Complaint: osteoarthritis Allergies: Allergies Allergy/AdvReac Type Severity Reaction Status Date / Time No Known Allergies Allergy Verified 08/10/21 13:05 Plan I have reviewed the history and physical and performed a pertinent physical examination on my patient. No changes have occurred unless specified.
--- NOTE | 2021-08-17 09:54 | PM.OP ---
Brief Operative Note Date of Service: 08/17/21 Pre-op diagnosis: left hip OA Post-op diagnosis: same Procedure: Left ROBERT Implants: [place] trident2 #52/ 20 deg liner [place] accolade2 #5 132 deg with + 0 36 ceramic femoral head Surgeon: Terrell Chris MD Anesthesia: GETA and local Was an Appraisal Technician used for this Procedure?: Yes Appraisal Technician: Shaggy Botello Estimated blood loss (mL): 300 IV fluids (mL): 1,100 Pathology: other Condition: stable Disposition: PACU
--- NOTE | 2021-08-17 10:20 | P.OP_ITS ---
Operative Note Operative Note Date of Service: 08/17/21 Narrative: Date of Service: 08/17/21 Pre-op diagnosis: left hip OA Post-op diagnosis: same Procedure: Left ROBERT Implants: [place] trident2 #52/ 20 deg liner [place] accolade2 #5 132 deg with + 0 36 ceramic femoral head Surgeon: Terrell Chris MD Anesthesia: GETA and local Was an Financial Management Consultant used for this Procedure?: Yes Financial Management Consultant: Shaggy Botello Estimated blood loss (mL): 300 IV fluids (mL): 1,100 Pathology: other Condition: stable Disposition: PACU Procedure in detail: Patient was brought into the operating room and placed in the right lateral decubitus position. All bony prominences were well padded and the limb was prep ped and draped in standard sterile fashion. Time-out was called to identify proper site, procedure,proper surgeon and IV antibiotics were administered. I began by making a curvilinear incision over the posterolateral aspect of the greater trochanter. Dissection was taken down to the tensor fascia which was incised in line with the incision and a Charnley retractor was placed. THe posterior soft tissues were protected at all times. Cautery was used to maintain hemostasis. A werewolf device was also used. The hip was internally rotated and the external rotators were identified. The vessels were cauterized and a full- thickness capsular/external rotator layer was developed starting just proximal to the piriformis. This layer was tagged and a dull Hohmann retractor was placed underneath the neck in the hip was dislocated. The head was eburnated. A neck cut was made 1 cm proximal to the lesser trochanter and the head and neck were removed and measured ( 49mm) on the back table. I started with a 46 mm reamer and sequentially reamed up to a size 52 and impacted a 52 at approximately 45 degrees of inclination and 25 degrees of version. I then placed a20 deg posterior lipped liner and turned my attention to the femur. I identified the piriformis insertion and used this as a starting point for my jessie cutter. The medius tendon was protected with a Hibs retractor. I then used a Charnley awl to identify the canal and a curved curette to remove the lateral bone. I irrigated copiously. I then sequentially broached in the patient's natural version to a size #5 and placed my trial implants. Using a trail head I took the hip through range of motion. I was very satisfied with the stability and length. Therefore I removed all instrumentation and copiously irrigated. I placed my final femoral implant and again took the hip through range of motion and was satisfied with the stability and length using a +0 36 head. I irrigated and then placed the final ceramic head. I then irrigated for 3 minutes with iodine and placed 1 g of local tranaxemic acid. I then performed a capsular closure with 2.0 fiberwire, Corazon's fascia with 0 Vicryl, subcuticular with 2-0 Vicryl and the skin with brie. Patient was placed into a sterile dressing. Radiographs were obtained at the completion of the case and I was satisfied with the component position. Patient was extubated brought to the recovery room in stable condition.
[2021-08-17] MEDS: HYDROmorphone HCl 0.5 MG/0.5 ML SYRINGE 0.25 MG IVPUSH ×5 (10:25→19:03)
[2021-08-17] MEDS: Dextrose 5 % and 0.45 % NaCl 1,000 ML 80 ML IVCONT ×2 (11:24→23:39)
[2021-08-17] MEDS: fentaNYL citrate/PF 100 MCG/2 ML VIAL 25 MCG IVPUSH (11:40)
[2021-08-17] MEDS: oxyCODONE HCl Immed Release 5 MG TABLET 10 MG PO ×2 (12:50→23:38)
--- NOTE | 2021-08-17 14:08 | HO.PM.IMCN ---
History of Present Illness Data of Consult Service Date: 08/17/21 Requesting physician: Terrell Chris Primary Care Provider: Collins Irene MD HPI Reason for consult: Medical Management 60-year-old woman with history of depression, hypothyroidism and heart arrhythmia admitted by Orthopedic surgery and is status post total hip arthroplasty. At this time her vital signs are stable. She has been able to drink liquids without any vomiting, she did have a short episode of nausea which has resolved. She has small amount pain at this time and she is currently resting in bed. Review of Systems Review of Systems: Denies any recent fever chills or decrease in appetite respiratory denies any shortness of breath coverage production cardiovasculardenies chest pain gastrointestinal denies any dysphagia abdominal pain nausea vomiting or diarrhea genitourinary denies any dysuria frequency or hematuria musculoskeletal See HPI neuropsych denies any weakness or seizures all other systems reviewed are negative [facility] Cough Depression History of blood transfusion Hx of cardiac murmur Hypertension Hypothyroid IBS (irritable bowel syndrome) Increased BMI Migraines Personal history of COVID-19 Surgical History History of incisional hernia repair Hx of cholecystectomy Hx of colonoscopy Hx of shoulder surgery Hx of tonsillectomy Hx of total hysterectomy with removal of both tubes and ovaries Social History Are you a primary specialist wound care to a significant other at home: No Do you presently have visiting nurse or other home services: No Patient Tobacco Use Status: Former Tobacco user Quit Date: 1983 Tobacco use type: Cigarette Current occupational status: employed 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 - [employer] Meds Allergies Allergy/AdvReac Type Severity Reaction Status Date / Time No Known Allergies Allergy Verified 08/10/21 13:05 Active Medications: Current Medications Acetaminophen (Acetaminophen 325 Mg Tablet) 650 mg PO Q6H PRN PRN Reason: Pain, Mild (Pain Scale 1-3) Celecoxib (Celecoxib 200 Mg Capsule) 200 mg PO BID MARIAN Docusate Sodium (Docusate Sodium 100 Mg Capsule) 100 mg PO BID MARIAN Hydromorphone HCl (Hydromorphone Hcl 0.5 Mg/0.5 Ml Syringe) 0.25 mg IVPUSH Q4H PRN; Protocol PRN Reason: Pain, Severe (Pain Scale 7-10) Dextrose/Sodium Chloride (D51/2ns) 1,000 mls @ 80 mls/hr IVCONT .[id number] [facility] Last Admin: 08/17/21 11:24 Dose: 80 mls/hr Documented by: Cefazolin Sodium/Dextrose (Ancef) 2 gm in 50 mls @ 100 mls/hr IV POSTOP MARIAN Oxycodone HCl (Oxycodone Hcl Immed Release 5 Mg Tablet) 10 mg PO Q4H PRN PRN Reason: Pain, Moderate (Pain Scale 4-6 Last Admin: 08/17/21 12:50 Dose: 10 mg Documented by: Oxycodone HCl (Oxycodone Hcl Er 10 Mg Tab.Er.12h) 10 mg PO BID [facility] Prochlorperazine Edisylate (Prochlorperazine Edisylate 10 Mg/2 Ml Vial) 5 mg IV Q4H PRN PRN Reason: Nausea Sodium Chloride (0.9 % Sodium Chloride Flush 3 Ml Syringe) 3 ml IVFLUSH QSHIFT [facility] Last Admin: 08/17/21 12:51 Dose: Not Given Documented by: Home Medications Medication Instructions Recorded Confirmed Last Taken Type dicyclomine 10 mg capsule 10 mg PO Q4-6H PRN 07/09/20 08/10/21 Unknown History amlodipine 5 mg tablet 5 mg PO DAILY 03/03/21 08/10/21 08/17/21 05:00 History carvedilol 12.5 mg tablet 12.5 mg PO BID 03/03/21 08/10/21 08/17/21 05:00 History citalopram 10 mg tablet 10 mg PO DAILY 03/03/21 08/10/21 08/17/21 05:00 History lisinopril 20 1 tab PO DAILY 03/03/21 08/10/21 Unknown History mg-hydrochlorothiazide 25 mg tablet levothyroxine 50 mcg tablet 1 tab PO DAILY 08/10/21 08/10/21 08/17/21 05:00 History Physical Exam Vital Signs and Narrative: Vital Signs: Last Vital Signs Temp 98.5 F 08/17/21 12:41 Pulse 79 08/17/21 13:20 Resp 19 08/17/21 12:41 BP 138/71 08/17/21 13:20 Pulse Ox 97 08/17/21 13:20 BMI result Body Mass Index 40.6 Appearing in no acute distress head is normocephalic atraumatic eyes pupils are PERRLA sclera is anicteric mouth throat mucous membranes are intact and moist neck is supple no lymphadenopathy, no JVD noted lung sounds are clear to auscultation heart regular rate rhythm, clear S1, S2 positive bowel sounds, abdomen is soft, nontender neuro patient is alert x3, no focal deficits Left hip surgical incision covered with surgical dressing, incision not visualized Results Labs CBC and Chem 7: 08/10/21 09:56 08/10/21 09:56 Labs: Laboratory Results - last 24 hr 08/17/21 06:10 COVID-19 (PAULINE) Positive A COVID-19 Clin Com See Note Imaging Radiologist's Impressions: Impressions Pelvis X-Ray 08/17/21 10:02 IMPRESSION: Status post total left-sided hip arthroplasty without evidence of acute fractures or malalignment. Assessment and Plan (1) Mild HTN: Status: Acute 60 year old women s/p left total hip arthroplasty Left total hip arthroplasty Management as per surgical team Pain management Hypertension Continue amlodipine, hold lisinopril/hydrochlorothiazide to avoid postoperative hypotension Mental health Continue home medications Hypothyroidism Continue levothyroxine History of cardiac arrhythmia Continue carvedilol Attending Dr. Alford DVT SCD boots
[2021-08-17] MEDS: Prochlorperazine Edisylate 10 MG/2 ML VIAL 5 MG IV (15:39)
[2021-08-17] MEDS: Docusate Sodium 100 MG CAPSULE PO (19:57)
[2021-08-17] MEDS: 0.9 % Sodium Chloride Flush 3 ML SYRINGE IVFLUSH (19:57)
[2021-08-17] MEDS: carvediloL 12.5 MG TABLET PO (19:57)
[2021-08-17] MEDS: Celecoxib 200 MG CAPSULE PO (19:57)
[2021-08-18] VITALS (8 sets, daily range): BP systolic 106–149; BP diastolic 53–84; PULSE 77–94; RESP 16–19; TEMP 36.7–37.1; O2SAT 90–96
[2021-08-18] MEDS: HYDROmorphone HCl 0.5 MG/0.5 ML SYRINGE 0.25 MG IVPUSH (02:50)
[2021-08-18] MEDS: Levothyroxine Sodium 50 MCG TABLET PO (05:43)
[2021-08-18] MEDS: oxyCODONE HCl Immed Release 5 MG TABLET 10 MG PO ×3 (05:46→19:59)
[2021-08-18 05:51] LABS: Basophils Percent Auto 0.1 % (0-2); Hematocrit 33.7 % (37.0-47.0); Hemoglobin 10.7 g/dl (12.0-16.0); Imm Gran Abs Auto 0.09 X10*3/uL (0.00-0.03); Imm Gran Pct Auto 0.6 % (0.0-0.4); Lymphocytes Percent Auto 13.1 % (20-40); MANUAL DIFF FLAG SCAN; Mean Corpuscular HGB Conc 31.8 g/dl (31.0-35.0); Mean Corpuscular Hemoglobin 27.7 pg (27.0-33.0); Mean Corpuscular Volume 87.3 fL (80.0-98.0); Monocytes Absolute Auto 1.9 X10*3/uL (0.1-1.2); Monocytes Percent Auto 12.5 % (2-11); Neutrophils Absolute Auto 11.4 x10*3/uL (2.0-8.3); Neutrophils Percent Auto 73.7 % (45-73); Platelet Count 398 X10*3/uL (160-400); Red Blood Count 3.86 X10*6/uL (4.20-5.50); Red Cell Distribution Width 13.3 % (11.0-16.0); SCAN SMEAR FLAG 1; White Blood Count 15.5 X10*3/uL (4.8-10.8)
[2021-08-18 06:14] LABS: Anion Gap 12 (12-20); Blood Urea Nitrogen 12 mg/dL (9-16); Carbon Dioxide 26 mmol/L (22-29); Chloride 100 mmol/L (96-108); Creatinine Clr Calc Pharmacy 96.2; Estimated Glomerular Filt Rate > 60; Glucose Fasting 126 mg/dL (60-99); Potassium 3.9 mmol/L (3.3-5.1); Sodium 134 mmol/L (135-145)
[2021-08-18 06:20] LABS: SLIDE REVIEW VERIFIED
--- NOTE | 2021-08-18 06:44 | PHA.MEDREC ---
Pharmacy Consult ? Medication Reconciliation Pharmacy has reviewed the medication reconciliation compeleted by Areli. Maryam Altman, SeverinoD
[2021-08-18] MEDS: oxyCODONE HCl ER 10 MG TAB.ER.12H PO ×2 (07:09→19:58)
[2021-08-18] MEDS: Escitalopram Oxalate 5 MG TABLET PO (07:09)
[2021-08-18] MEDS: carvediloL 12.5 MG TABLET PO ×2 (07:09→19:59)
[2021-08-18] MEDS: Celecoxib 200 MG CAPSULE PO ×2 (07:09→19:59)
[2021-08-18] MEDS: Docusate Sodium 100 MG CAPSULE PO ×2 (07:09→19:58)
[2021-08-18] MEDS: amLODIPine Besylate 5 MG TABLET PO (07:09)
[2021-08-18] MEDS: 0.9 % Sodium Chloride Flush 3 ML SYRINGE IVFLUSH (07:09)
[2021-08-18] MEDS: Prochlorperazine Edisylate 10 MG/2 ML VIAL 5 MG IV (08:09)
--- NOTE | 2021-08-18 08:38 | MHC.CDI.CONC ---
CDI Concurrent Query Documentation Clarification: PHYSICIAN'S DOCUMENTATION REQUEST Date of Query: 08/18/21 0838 Patient Name: Josi Arvizu Admit Date: 08/17/21 Dear Doctor, A review of the medical record indicates additional documentation may be needed. Please review below and update the documentation accordingly. Risk Factors/Clinical Indicators/Treatments Body mass index: 40.6 5' 5 PMH: History of increased BMI. If possible, please provide an associated diagnosis related to the abnormal BMI, such as: For a BMI >= 40: Overweight Obesity Due to excess calories Drug induced Due to other cause Severe or Morbid Obesity Use of terms such as suspected, likely, concern for, or probable (associated with a specific diagnosis that is being evaluated, monitored, or treated as if it exists) are acceptable and can be coded in the inpatient setting, when documented at the time of discharge. Thank you, Liliane Hemphill [facility], CDIS Extension: [phone] Please use your independent medical judgment in providing your response. THIS QUERY IS PART OF THE PERMANENT MEDICAL RECORD
--- NOTE | 2021-08-18 09:01 | P.PNOP_ITS ---
Subjective Subjective Date of Service: 08/18/21 Interval history: Day 1 status post left total hip arthroplasty No overnight events Resting comfortably in bed, tolerating pain well. No concerns. Physical Exam Vital Signs: Vital Signs: Last Vital Signs Temp 98.8 F 08/18/21 07:22 Pulse 94 08/18/21 08:12 Resp 18 08/18/21 07:22 BP 141/84 H 08/18/21 08:12 Pulse Ox 93 08/18/21 08:12 BMI result Body Mass Index 40.6 Const: General: cooperative, healthy appearing and no acute distress Resp: Effort & Inspection: normal respiratory effort and able to speak in complete sentences Cardio: Rate: regular rate Peripheral pulses: Peripheral pulses 2+ throughout GI: Palpation (GI): Soft to palpation Skin: General skin exam: no rashes or lesions noted Extrem: Other: incision clean dry and intact. [place] intact. No erythema or effusion. Calf supple nontender. Neurovascularly intact. Procedures Date of Service Date of Service: 08/18/21 Progress Note: A&P Assessment and plan (1) History of total left hip replacement: Status: Acute Assessment and Plan: * Continue pain mgmnt * Begin lovenox for dvt ppx * begin PT / OT for LT ROBERT * Dispo planning-Pending PT eval, pain mgmnt Fall Risk Details Current Medications: Current Medications Acetaminophen (Acetaminophen 325 Mg Tablet) 650 mg PO Q6H PRN PRN Reason: Pain, Mild (Pain Scale 1-3) Amlodipine Besylate (Amlodipine Besylate 5 Mg Tablet) 5 mg PO DAILY [facility]; Protocol Last Admin: 08/18/21 07:09 Dose: 5 mg Documented by: Carvedilol (Carvedilol 12.5 Mg Tablet) 12.5 mg PO BID [facility]; Protocol Last Admin: 08/18/21 07:09 Dose: 12.5 mg Documented by: Celecoxib (Celecoxib 200 Mg Capsule) 200 mg PO BID [facility] Last Admin: 08/18/21 07:09 Dose: 200 mg Documented by: Dicyclomine HCl (Dicyclomine Hcl 10 Mg Capsule) 10 mg PO Q4H PRN PRN Reason: Abdominal Pain Docusate Sodium (Docusate Sodium 100 Mg Capsule) 100 mg PO BID [facility] Last Admin: 08/18/21 07:09 Dose: 100 mg Documented by: Escitalopram Oxalate (Escitalopram Oxalate 5 Mg Tablet) 5 mg PO DAILY [facility] Last Admin: 08/18/21 07:09 Dose: 5 mg Documented by: Hydromorphone HCl (Hydromorphone Hcl 0.5 Mg/0.5 Ml Syringe) 0.25 mg IVPUSH Q4H PRN; Protocol PRN Reason: Pain, Severe (Pain Scale 7-10) Last Admin: 08/18/21 02:50 Dose: 0.25 mg Documented by: Dextrose/Sodium Chloride (D51/2ns) 1,000 mls @ 80 mls/hr IVCONT .[id number] [facility] Last Admin: 08/17/21 23:39 Dose: 80 mls/hr Documented by: Cefazolin Sodium/Dextrose (Ancef) 2 gm in 50 mls @ 100 mls/hr IV POSTOP [facility] Levothyroxine Sodium (Levothyroxine Sodium 50 Mcg Tablet) 50 mcg PO DAILY@0600 [facility] Last Admin: 08/18/21 05:43 Dose: 50 mcg Documented by: Oxycodone HCl (Oxycodone Hcl Immed Release 5 Mg Tablet) 10 mg PO Q4H PRN PRN Reason: Pain, Moderate (Pain Scale 4-6 Last Admin: 08/18/21 05:46 Dose: 10 mg Documented by: Oxycodone HCl (Oxycodone Hcl Er 10 Mg Tab.Er.12h) 10 mg PO BID [facility] Last Admin: 08/18/21 07:09 Dose: 10 mg Documented by: Prochlorperazine Edisylate (Prochlorperazine Edisylate 10 Mg/2 Ml Vial) 5 mg IV Q4H PRN PRN Reason: Nausea Last Admin: 08/18/21 08:09 Dose: 5 mg Documented by: Sodium Chloride (0.9 % Sodium Chloride Flush 3 Ml Syringe) 3 ml IVFLUSH QSHIFT [facility] Last Admin: 08/18/21 07:09 Dose: 3 ml Documented by: Time Spent With Patient Time: Total time spent is greater than 50% in coordination of care (as documented) at patient's floor/unit and/or counseling patient: Time with patient: less than 15 minutes Quality Stroke Does the patient have a stroke diagnosis?: No VTE Prior VTE?: No VTE Risk Level:: Surgical - very high VTE Device Contraindication: N/A - Device Ordered VTE Drug Contraindication: N/A - Med Ordered
--- NOTE | 2021-08-18 09:18 | P.PNIM_ITS ---
Subjective Subjective Date of Service: 08/18/21 Physical Exam Vital Signs: Vital Signs: Last Vital Signs Temp 98.8 F 08/18/21 07:22 Pulse 94 08/18/21 08:12 Resp 18 08/18/21 07:22 BP 141/84 H 08/18/21 08:12 Pulse Ox 93 08/18/21 08:12 BMI result Body Mass Index 40.6 Objective Data Active Medications Acetaminophen (Acetaminophen 325 Mg Tablet) 650 mg PO Q6H PRN PRN Reason: Pain, Mild (Pain Scale 1-3) Amlodipine Besylate (Amlodipine Besylate 5 Mg Tablet) 5 mg PO DAILY [facility]; Protocol Last Admin: 08/18/21 07:09 Dose: 5 mg Documented by: TYLER Carvedilol (Carvedilol 12.5 Mg Tablet) 12.5 mg PO BID [facility]; Protocol Last Admin: 08/18/21 07:09 Dose: 12.5 mg Documented by: TYLER Celecoxib (Celecoxib 200 Mg Capsule) 200 mg PO BID [facility] Last Admin: 08/18/21 07:09 Dose: 200 mg Documented by: TYLER Dicyclomine HCl (Dicyclomine Hcl 10 Mg Capsule) 10 mg PO Q4H PRN PRN Reason: Abdominal Pain Docusate Sodium (Docusate Sodium 100 Mg Capsule) 100 mg PO BID [facility] Last Admin: 08/18/21 07:09 Dose: 100 mg Documented by: TYLER Enoxaparin Sodium (Enoxaparin Sodium 40 Mg/0.4 Ml Syringe) 40 mg SUBCUT Q24H [facility] Escitalopram Oxalate (Escitalopram Oxalate 5 Mg Tablet) 5 mg PO DAILY [facility] Last Admin: 08/18/21 07:09 Dose: 5 mg Documented by: TYLER Hydromorphone HCl (Hydromorphone Hcl 0.5 Mg/0.5 Ml Syringe) 0.25 mg IVPUSH Q4H PRN; Protocol PRN Reason: Pain, Severe (Pain Scale 7-10) Last Admin: 08/18/21 02:50 Dose: 0.25 mg Documented by: NIKO Dextrose/Sodium Chloride (D51/2ns) 1,000 mls @ 80 mls/hr IVCONT .[id number] [facility] Last Admin: 08/17/21 23:39 Dose: 80 mls/hr Documented by: NIKO Cefazolin Sodium/Dextrose (Ancef) 2 gm in 50 mls @ 100 mls/hr IV POSTOP MARIAN Levothyroxine Sodium (Levothyroxine Sodium 50 Mcg Tablet) 50 mcg PO DAILY@0600 [facility] Last Admin: 08/18/21 05:43 Dose: 50 mcg Documented by: NIKO Oxycodone HCl (Oxycodone Hcl Immed Release 5 Mg Tablet) 10 mg PO Q4H PRN PRN Reason: Pain, Moderate (Pain Scale 4-6 Last Admin: 08/18/21 05:46 Dose: 10 mg Documented by: NIKO Oxycodone HCl (Oxycodone Hcl Er 10 Mg Tab.Er.12h) 10 mg PO BID [facility] Last Admin: 08/18/21 07:09 Dose: 10 mg Documented by: TYLER Prochlorperazine Edisylate (Prochlorperazine Edisylate 10 Mg/2 Ml Vial) 5 mg IV Q4H PRN PRN Reason: Nausea Last Admin: 08/18/21 08:09 Dose: 5 mg Documented by: LILY Sodium Chloride (0.9 % Sodium Chloride Flush 3 Ml Syringe) 3 ml IVFLUSH QSHIFT [facility] Last Admin: 08/18/21 07:09 Dose: 3 ml Documented by: TYLER Labs CBC & Chem 7: 08/18/21 05:16 08/18/21 05:16 Labs: Laboratory Results - last 24 hr 08/18/21 08/18/21 05:16 05:16 MCV 87.3 MCH 27.7 MCHC 31.8 RDW 13.3 Plt Count 398 MPV 11.0 Immature Gran % (Auto) 0.6 H Neut % (Auto) 73.7 H Lymph % (Auto) 13.1 L [place] % (Auto) 12.5 H Eos % (Auto) 0.0 Baso % (Auto) 0.1 Lymph # (Auto) 2.0 [place] # (Auto) 1.9 H Eos # (Auto) 0.0 Baso # (Auto) 0.0 Abs Immat Gran (auto) 0.09 H Absolute Neuts (auto) 11.4 H Absolute Nucleated RBC 0.000 Nucleated RBC % (auto) 0.0 Smear Tech's Comments VERIFIED Anion Gap 12 Estim Creat Clear Calc 96.2 Estimated GFR > 60 Fasting Glucose 126 H Calcium 9.0 D Assessment and Plan (1) Morbid obesity: Status: Acute (2) Mild HTN: Status: Acute Assessment and Plan: 60 year old women s/p left total hip arthroplasty Left total hip arthroplasty Management as per surgical team Pain management OOB walking in hallway Hypertension Continue amlodipine, hold lisinopril/hydrochlorothiazide to avoid postoperative hypotension Mental health Continue home medications Hypothyroidism Continue levothyroxine History of cardiac arrhythmia Continue carvedilol Morbid obesity. BMI 40.6 Discussed importance of weight management as this may be contributing to worsening of other comorbidities Attending Dr. Alford DVT [facility] Stroke Does the patient have a stroke diagnosis?: No VTE Prior VTE?: No VTE Risk Level:: Surgical - very high VTE Device Contraindication: N/A - Device Ordered VTE Drug Contraindication: N/A - Med Ordered
[2021-08-18] MEDS: Enoxaparin Sodium 40 MG/0.4 ML SYRINGE SUBCUT (09:33)
--- NOTE | 2021-08-18 09:33 | MHC.CM.PN ---
EMR REVIEWED, PT ADMITTED S/P L ROBERT, CM MET W/PT WHO IS A&0X4, PT REPORTS SHE LIVES W/EX-, PT IS INDEPENDENT W/ALL CARE, WORKS HERE AT [employer] [facility] [place], HAS A WALKER D/T HAVING L ROBERT, NO OTHER DME OR HOME SERVICES, PT REPORTS SHE WOULD LIKE TO D/C HOME W/SERVICES. PCP VERIFIED LOIS BERMUDEZ, PT WOULD LIKE TO COMPLETE A HCP PRIOR TO D/C HER PCP'S OFFICE DOES NOT HAVE ONE ON FILE. D/C PLAN: HOME W/HVNA, EX FOR TRANSPORT
--- NOTE | 2021-08-18 10:02 | HO.POSTANES ---
Post Anesthesia Evaluation Post Anesthesia Evaluation Vital Signs: Vital Signs Temp Pulse Resp BP Pulse Ox 08/18/21 08:12 94 141/84 H 93 08/18/21 07:22 98.8 F 94 18 141/84 H 93 08/18/21 04:00 98.2 F 94 18 149/76 H 93 08/17/21 23:46 98 F 92 18 145/77 H 95 Anesthesia: General LMA Mental Status: Awake Pain Control: Satisfactory Nausea/Vomiting: None Hydration: Adequate Anesthesia-Related Issues: No Anes. Related Issues
[2021-08-18] MEDS: Acetaminophen 325 MG TABLET 650 MG PO (11:48)
[2021-08-18] MEDS: Dextrose 5 % and 0.45 % NaCl 1,000 ML 80 ML IVCONT (13:39)
[2021-08-19] MEDS: oxyCODONE HCl Immed Release 5 MG TABLET 10 MG PO ×2 (00:41→06:30)
[2021-08-19 03:26] VITALS: BP 137/68; PULSE 75; RESP 19; TEMP 37; O2SAT 90
[2021-08-19] MEDS: Dextrose 5 % and 0.45 % NaCl 1,000 ML 80 ML IVCONT (03:26)
[2021-08-19 05:59] LABS: Basophils Percent Auto 0.2 % (0-2); Eosinophils Percent Auto 0.3 % (0-4); Hematocrit 28.5 % (37.0-47.0); Imm Gran Abs Auto 0.13 X10*3/uL (0.00-0.03); Imm Gran Pct Auto 1.1 % (0.0-0.4); Lymphocytes Absolute Auto 1.7 X10*3/uL (1.2-4.9); Lymphocytes Percent Auto 14.8 % (20-40); MANUAL DIFF FLAG SCAN; Mean Corpuscular HGB Conc 31.6 g/dl (31.0-35.0); Mean Corpuscular Hemoglobin 27.9 pg (27.0-33.0); Mean Corpuscular Volume 88.2 fL (80.0-98.0); Mean Platelet Volume 11.3 fL (9.4-12.3); Monocytes Absolute Auto 1.9 X10*3/uL (0.1-1.2); Monocytes Percent Auto 15.8 % (2-11); Neutrophils Percent Auto 67.8 % (45-73); Platelet Count 265 X10*3/uL (160-400); Red Blood Count 3.23 X10*6/uL (4.20-5.50); Red Cell Distribution Width 13.3 % (11.0-16.0); SCAN SMEAR FLAG 1; White Blood Count 11.7 X10*3/uL (4.8-10.8)
[2021-08-19 06:23] LABS: Anion Gap 10 (12-20); Blood Urea Nitrogen 14 mg/dL (9-16); Calcium 8.4 mg/dL (8.4-10.2); Carbon Dioxide 28 mmol/L (22-29); Chloride 103 mmol/L (96-108); Estimated Glomerular Filt Rate > 60; Glucose Fasting 110 mg/dL (60-99); Potassium 3.6 mmol/L (3.3-5.1); Sodium 137 mmol/L (135-145)
[2021-08-19] MEDS: Levothyroxine Sodium 50 MCG TABLET PO (06:27)
[2021-08-19 06:44] LABS: SLIDE REVIEW VERIFIED
[2021-08-19 07:35] VITALS: BP 137/68; PULSE 75; O2SAT 90
[2021-08-19] MEDS: Celecoxib 200 MG CAPSULE PO (07:39)
[2021-08-19] MEDS: Docusate Sodium 100 MG CAPSULE PO (07:39)
[2021-08-19] MEDS: Escitalopram Oxalate 5 MG TABLET PO (07:39)
[2021-08-19] MEDS: oxyCODONE HCl ER 10 MG TAB.ER.12H PO (07:39)
[2021-08-19] MEDS: amLODIPine Besylate 5 MG TABLET PO (07:40)
[2021-08-19] MEDS: 0.9 % Sodium Chloride Flush 3 ML SYRINGE IVFLUSH (07:40)
[2021-08-19] MEDS: Enoxaparin Sodium 40 MG/0.4 ML SYRINGE SUBCUT (07:40)
[2021-08-19] MEDS: carvediloL 12.5 MG TABLET PO (07:40)
[2021-08-19 08:00] VITALS: BP 120/63; PULSE 76; RESP 18; TEMP 36.9; O2SAT 96
--- NOTE | 2021-08-19 08:42 | PM.DS ---
DS: Providers Provider Date of Service: 08/19/21 Date of admission: 08/17/21 06:08 Primary care physician: Collins Irene MD Consults: 08/17/21 10:13 Consult to Hospitalist Routine Consulting Provider: Hospitalist Reason For Exam: post op medical management DS: Diagnosis Discharge Diagnosis (1) History of total left hip replacement: Status: Acute DS: Summary Hospital Course Hospital Course: The patient underwent a successful left total hip arthroplasty, was transferred to PACU and then to the floor to recover. During their stay, their vitals were stable, afebrile at 98.5. Labs were unremarkable, H/H 9.0/28.5. POD 1 shewas started on Lovenox for DVT ppx, they also received PT/OT services twice a day. Prior to discharge, their dressing was change, incision clean dry and intact, new Aquacel dressing applied and the plan was to be discharged home with VNA svs. Time Spent with Patient Time attestation: Total time spent providing and/or coordinating discharge services: Discharge coordination time: Less than 30 minutes Quality: Stroke Does the patient have a stroke diagnosis?: No Physical Exam Vital Signs: Vital Signs: Last Vital Signs Temp 98.5 F 08/19/21 08:00 Pulse 76 08/19/21 08:00 Resp 18 08/19/21 08:00 BP 120/63 08/19/21 08:00 Pulse Ox 96 08/19/21 08:00 BMI result Body Mass Index 40.6 Const: General: cooperative, healthy appearing and no acute distress Resp: Effort & Inspection: normal respiratory effort and able to speak in complete sentences Cardio: Rate: regular rate Peripheral pulses: Peripheral pulses 2+ throughout GI: Palpation (GI): Soft to palpation Skin: General skin exam: no rashes or lesions noted Extrem: Other: incision clean dry and intact. [place] intact. No erythema or effusion. Calf supple nontender. Neurovascularly intact. DS: Data Data Completed and Pending Pending studies at discharge: Pending at discharge 08/17/21 09:35 Surgical [PTH] Routine Labs on day of discharge: Laboratory Results - last 24 hr 08/19/21 08/19/21 05:15 05:15 WBC 11.7 H RBC 3.23 L Hgb 9.0 L Hct 28.5 L MCV 88.2 MCH 27.9 MCHC 31.6 RDW 13.3 Plt Count 265 D MPV 11.3 Immature Gran % (Auto) 1.1 H Neut % (Auto) 67.8 Lymph % (Auto) 14.8 L [place] % (Auto) 15.8 H Eos % (Auto) 0.3 Baso % (Auto) 0.2 Lymph # (Auto) 1.7 [place] # (Auto) 1.9 H Eos # (Auto) 0.0 Baso # (Auto) 0.0 Abs Immat Gran (auto) 0.13 H Absolute Neuts (auto) 8.0 Absolute Nucleated RBC 0.000 Nucleated RBC % (auto) 0.0 Smear Tech's Comments VERIFIED Sodium 137 Potassium 3.6 Chloride 103 Carbon Dioxide 28 Anion Gap 10 L BUN 14 Creatinine 0.68 Estim Creat Clear Calc 109.0 Estimated GFR > 60 Fasting Glucose 110 H Calcium 8.4 D Discharge Plan Discharge Patient Disposition: Home Health Service Discharge Diagnosis: s/p LT ROBERT Referrals: Shaggy Botello PA-C [Physician Tracer Bullet Section Supervisor] - 2 Weeks ( 09/02/21 09:30 [facility] Shaggy Botello PA-C Physical Therapy @ [facility] [place] [facility] 09/02/21 10:00) Discharge Medications: New acetaminophen 325 mg Tablet 650 mg PO Q6H PRN (Reason: Pain, Mild (Pain Scale 1-3)) 30 Days Qty: 240 RF: 0 docusate sodium 100 mg Capsule 100 mg PO BID 14 Days Qty: 28 RF: 0 oxycodone 5 mg Tablet 5 mg PO Q4H PRN (Reason: Pain, Moderate (Pain Scale 4-6) 7 Days Qty: 42 RF: 0 enoxaparin 40 mg/0.4 mL Syringe 40 mg subcut Q24H 42 Days Qty: 16.8 RF: 0 ondansetron HCl [Zofran] 4 mg tablet 4 mg PO Q6H PRN (Reason: nausea and vomiting) 30 Days Qty: 112 RF: 2 Continued dicyclomine 10 mg Capsule 10 mg PO Q4-6H PRN (Reason: Abdominal Pain) RF: 0 levothyroxine 50 mcg tablet 1 tab PO DAILY RF: 0 lisinopril-hydrochlorothiazide 20-25 mg tablet 1 tab PO DAILY RF: 0 amlodipine 5 mg tablet 5 mg PO DAILY RF: 0 carvedilol 12.5 mg tablet 12.5 mg PO BID RF: 0 citalopram 10 mg tablet 10 mg PO DAILY RF: 0 (DME) walker Misc See Rx Instructions .ROUTE .MEDSUPPLY Qty: 1 RF: 0 Discharge Orders: Discharge Order (Routine); Ordered 08/19/21 Ordered By: Shaggy Botello Diet: regular diet Activity on Discharge: Use cane or walker Stand Alone Forms: Patient Portal Discharge page Care Plan Goals: Restore function of joint Health Concerns: none Plan of Treatment: Physical Therapy Pain management DVT prophylaxis Assessment: Physical Therapy for Total hip arthroplasty: posterior precautions, gait training, ROM, strength Limit stair climbing No showering, no tub bath-keep dressing clean, dry and intact No driving x6 weeks Continue Lovenox once a day x 4 weeks Follow up with [facility] in 2 weeks 09/02/20 @ 9:30am --> your first Out patient PT appt is scheduled for 09/02/20 @10:00am @ [facility] [place]
--- NOTE | 2021-08-19 14:50 | P.F2F_ITS ---
Service Date Service Date: 08/19/21 Encounter Date of encounter: 08/19/21 Reasons for Services Reason for longterm: medication treatment Reason for physical therapy: home safety and mobility, therapeutic exercises, restore joint function, gait/transfer training, ADL training and energy conservation Reason for occupational therapy: home safety and mobility, therapeutic ex ercises, restore joint function, gait/transfer training, ADL training and energy conservation Overseeing Care: Terrell Chris Homebound: Leaving the home is medically contraindicated at this time without the asist of a device and/or another person due th the listed conditions above and below. Reason homebound: unsteady gait / fall risk, leg weakness, pain with ambulation, pain with transfers, poor balance / fall risk and unable to drive Homebound supporting statement: Pt. is considered home bound due to recent surgery. Unable to drive, poor balance, poor gait mechanics. Certification: Based on the above findings, I certify that this patient is confined to the home and needs intermittent longterm care, physical therapy and/or speech therapy, or continues to need occupational therapy. The patient is under my care, and I have initiated the establishment of the plan of care. The patient will be followed by a physician who will periodically review the plan of care.
== END 2021-08-19 11:30 | disposition home health service (06) | DRG 301 ==
LOC: HO.SSSA 06:10 → HO.S3 11:20
PROVIDERS: Physician Assistant; Admitting Provider Orthopaedic Surgery; PCP Internal Medicine; Visit Provider Orthopaedic Surgery
PROC: 0SRB03A Replacement of Left Hip Joint with Ceramic Synthetic Substitute, Uncemented, Open Approach (ICD-10-PCS; CPT 27130; principal; 2021-08-17 07:30)
DX: M16.12 Unilateral primary osteoarthritis, left hip (principal); Z68.41 Body mass index [BMI] 40.0-44.9, adult; I10 Essential (primary) hypertension; I49.9 Cardiac arrhythmia, unspecified; F32.A Depression, unspecified; E03.9 Hypothyroidism, unspecified; E66.01 Morbid (severe) obesity due to excess calories; Z86.16 Personal history of COVID-19; Z79.890 Hormone replacement therapy; Z79.899 Other long term (current) drug therapy
CPT/HCPCS: 36415; 72170; 80048; 85025; 86850; 86900; 86901; 87635; 88304; 88305; 88311; 97110; 97116; 97162; 97166; 97535; C1776; J0131; J0330; J0690; J1100; J1170; J1650; J2250; J2405; J2550; J3010

== ENCOUNTER → 2021-09-02 09:18 | Outpatient (BNVA) | payer OTHER, SELFPAY | PROVIDERS: PCP Internal Medicine; Visit Provider Physician Assistant ==

== ENCOUNTER 2021-09-16 09:00 | Outpatient (RCR) | payer OTHER, SELFPAY ==
--- NOTE | 2021-09-02 11:55 | MHC.PT.EP ---
[facility] [place] [facility] [place] [facility] [place] [facility] [address] Felipa Chavarria [address] [phone] F: [phone] F: [phone] F: [phone] F: [phone] Physical Therapy Plan of Care Date of Evaluation: Date of Surgery: 08/17/21 Diagnosis: S/P LEFT ROBERT-POSTERIOR APPROACH Assessment: 60 YO FEMALE REF TO PT S/P LEFT ROBERT, POSTERIOR APPROACH ON 08/17/21. 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 Pt HAS TIGHT HIP FLEXORS, WEAK LUMBOPELVIC/ PROX LEs, RESIDUAL LLI W Rt LE LONGER; NAD POST-OP SORENESS/DISCOMFORT/ DECR ACTIVITY SAIDA. FUNCTIONAL LIMITATIONS INCLUDE COMPENSATORY GAIT W CANE, DECR FUNCT MOB SAIDA -> FATIGUED W CURRENT LEVEL OF ADLs, 50' GAIT W CANE, AND POSTURAL COMPENSATIONS W STANDING, INCR UEs USE W TRANSFERS. Pt WOULD BENEFIT FROM PT INTERVENTION TO GUIDE HER ALONG HER POST-OP Lt ROBERT COURSE- ADDRESSING PAIN MGMT, DEV HEP, FLEXIB/ STRENGTH; AND IMROVING GAIT MECH ON LEVEL GROUND AND W STAIR MGMT. Frequency and Duration: The patient will be seen 2x WK x 6 WKS Short Term Goals: Pt'S LEFT HIP PAIN DECREASED TO 2-3/10 IN 2 WKS Pt DEMON IMPROVED LUMBOPELVIC SYMM INITIATE HEP FOR CORE STRENGTH/ PROX LEs STRENGTH AND STAB IN 3 WKS Pt DEMON WFL AROM LEFT HIP EXT (W RESPECT FOR ROBERT PRECAUTIONS) AND ANKLE AROM IN 3 WKS Pt DEMO IMPROVED GAIT MECH W LEAST REST AD ON LEVEL GROUND AND STAIRS IN 3 WKS Social Services Designee Goals: Pt INDEP W HEP PROGRESSION AND SELF-SX MGMT STRATEGIES IN 5 WKS Pt RESUME REG ADLs and RTW EVIDENT W IMPROVED LEFI SCORE BY 8-10 POINTS (AT EVAL 26/80) IN 6 WKS Pt INCR LEFT LE STRENGTH BY 1 GRADE IN 6 WKS Treatment Plan: Modalities to reduce pain, spasms and effusion. Manual therapy to restore motion and function. Therapeutic exercise to improve strength and flexibility. Neuromuscular re-education for posture and balance. Therapeutic activities to return to functional activities of daily living. Electronically signed by: Mercedez Magdaleno,PT Please sign and return to therapist. Thank you for your referral.
== END 2021-10-15 14:12 | disposition home or self-care (01) ==
LOC: HO.PT 09:00
PROVIDERS: Visit Provider Physician Assistant
DX: Z96.642 Presence of left artificial hip joint (principal)
CPT/HCPCS: 97110; 97112; 97162; 97530

== ENCOUNTER → 2021-09-30 13:04 | Outpatient (BNVA) | payer OTHER, SELFPAY | PROVIDERS: PCP Internal Medicine; Visit Provider Physician Assistant ==

== ENCOUNTER 2021-11-11 08:34 | Outpatient (REF) | payer OTHER, SELFPAY ==
--- NOTE | ~2021-11-11 | XR_ITS ---
EXAMINATION: XR PELVIS CLINICAL INFORMATION: Hip pain. COMPARISON: None TECHNIQUE: 2 AP views of the pelvis is submitted. FINDINGS: There is bony demineralization. The right acetabular joint space is well-maintained. There is an intact left hip arthroplasty, without hardware failure or loosening seen. The sacroiliac joints are symmetric. The pubic symphysis is intact. There is mild osteitis pubis. Left abdominopelvic herniorrhaphy mesh is noted. XR/XR pelvis 1-2V IMPRESSION: 1. There is an intact left hip total arthroplasty, without hardware failure or loosening seen. 2. No unusual degenerative change is seen of the right hip or the sacroiliac joints . 3. There is no acute fracture or dislocation.
== END 2021-11-11 08:35 | disposition home or self-care (01) ==
LOC: HO.HOSX 08:34
PROVIDERS: Visit Provider Orthopaedic Surgery
DX: Z47.1 Aftercare following joint replacement surgery (principal); Z96.642 Presence of left artificial hip joint
CPT/HCPCS: 72170

== ENCOUNTER 2021-11-23 16:05 | Emergency (ER) | payer OTHER, SELFPAY ==
--- NOTE | ~2021-11-23 | CT_ITS ---
EXAMINATION: CT ABDOMEN AND PELVIS WITH CONTRAST CLINICAL INFORMATION: spine fracture? retained gall stones?shoulder pain, abd pain COMPARISON: Ultrasound abdomen 09/16/2019 TECHNIQUE: Multidetector volumetric images were obtained from the superior aspect of the liver through the pubic symphysis following administration 85 mL of Omnipaque 350 intravenous contrast. Sagittal and coronal reformatted images were obtained on the technologist's workstation. Oral contrast: No This CT examination was performed using dose optimization techniques as appropriate, variously including the following: *Automated exposure control *Adjustment of mA and/or kV according to patient size (this includes techniques or standardized protocols for targeted exams where dose is matched to indication/reason for exam; i.e. extremities or head) *Use of iterative reconstruction technique DLP: 987 mGy-cm FINDINGS: LUNG BASES: The visualized lung bases are unremarkable. LIVER, GALLBLADDER, AND BILIARY TREE: The liver is mildly enlarged at 19 cm in cephalocaudad dimension. There is probable hepatic steatosis. No focal hepatic lesion or biliary ductal dilatation is present. Status post cholecystectomy. PANCREAS: Unremarkable. SPLEEN: Unremarkable. ADRENAL GLANDS: Unremarkable. KIDNEYS AND URETERS: The kidneys are normal in size, shape, and attenuation. Bilateral small renal cortical and parapelvic cysts are present. No suspicious solid renal masses are seen. No further imaging or follow-up should be needed. No hydronephrosis, hydroureter, or calculi seen. No perinephric stranding. BLADDER: Unremarkable. GASTROINTESTINAL TRACT: The small and large bowel are unremarkable aside from a few scattered colonic diverticula.. The appendix is unremarkable. ABDOMINAL WALL: No significant hernia is appreciated. There is been previous hernia repair in the abdomen with abdominal wall surgery. A tiny periumbilical hernia seen containing only fat. LYMPH NODES: No retroperitoneal lymphadenopathy. VASCULAR: Mild calcific changes present in the infrarenal aorta and common iliac arteries without aneurysm. The left renal vein is retroaortic PELVIC VISCERA: Surgically removed. OSSEOUS STRUCTURES: A left hip prosthesis is present. Mild degenerative changes present in the spine. CT/CT abdomen pelvis w con IMPRESSION: No retained gallstones are seen. Mildly enlarged probable fatty liver. Other incidental findings as described above. Fleischner guidelines were followed.
--- NOTE | ~2021-11-23 | CT_ITS ---
EXAMINATION: CT ANGIOGRAM OF THE CHEST WITH AND WITHOUT CONTRAST (CT PULMONARY ANGIOGRAM FOR PE) CLINICAL INFORMATION: Reason for Exam elevated D-dimer. PE? ANeurysm. Scapula pain COMPARISON: None TECHNIQUE: Prior to contrast administration, noncontrast localization images were obtained. Subsequently, multidetector volumetric imaging was performed from the thoracic inlet to below the diaphragms following the administration of 85 mL Omnipaque 350 intravenous contrast. No contrast reaction reported Sagittal, coronal, and MIP oblique sagittal reformatted images were obtained on the CT workstation, uploaded to PACS, and reviewed. This CT examination was performed using dose optimization techniques as appropriate, variously including the following: *Automated exposure control *Adjustment of mA and/or kV according to patient size (this includes techniques or standardized protocols for targeted exams where dose is matched to indication/reason for exam; i.e. extremities or head) *Use of iterative reconstruction technique Total exam dose-length product 97 mGy-cm FINDINGS: QUALITY OF STUDY/CONTRAST BOLUS: The bolus is satisfactory however there is marked motion artifact degrading detail. PULMONARY ARTERIES: No central or large segmental pulmonary emboli. Evaluation is extremely limited because of motion THORACIC AORTA: No aneurysm or dissection. LUNG: No focal consolidation, nodules or masses. PLEURA: No pleural effusion or pneumothorax. MEDIASTINUM: There is mild cardiac enlargement. No pericardial effusion. No hilar or mediastinal lymphadenopathy. No evidence of septal bowing or right heart strain. CHEST WALL/AXILLA: No axillary or internal mammary lymphadenopathy. OSSEOUS STRUCTURES: No acute or suspicious osseous abnormality. Mild degenerative changes are present in the spine. UPPER ABDOMEN: Unremarkable. No reflux of contrast into the hepatic veins to suggest elevated right heart pressures. CT/CT angio chest PE protocol IMPRESSION: Very limited exam but no evidence of central or large segmental pulmonary emboli VTE: Negative but limited
[2021-11-23 16:38] VITALS: BP 151/87; PULSE 60; RESP 22; TEMP 36.8; O2SAT 96; BMI 39.9
--- NOTE | 2021-11-23 16:42 | ECG_ITS ---
Test Reason : back pain Blood Pressure : / mmHG Vent. Rate : 058 BPM Atrial Rate : 058 BPM P-R Int : 196 ms QRS Dur : 080 ms QT Int : 438 ms P-R-T Axes : 051 010 039 degrees QTc Int : 429 ms Sinus bradycardia Otherwise normal ECG When compared with ECG of 10-FEB-2020 13:37, No significant change was found Referred By: Generic ED Physician Electronically Signed By:JESSICA HERNANDEZ MD
[2021-11-23 16:46] VITALS: BP 149/92
[2021-11-23 18:17] VITALS: BP 180/87; PULSE 66; RESP 20; TEMP 36.6; O2SAT 96
--- NOTE | 2021-11-23 18:18 | ED_ITS ---
HPI - General Adult General Chief complaint: Back Pain/Injury Stated complaint: back pain, hurts to breathe, employee Time Seen by Provider: 11/23/21 18:09 Source: patient Mode of arrival: ambulatory Limitations: no limitations History of Present Illness HPI narrative: 61-year-old female history of hypertension, cholecystectomy and status post hip replacement done in July of 2021 presents to ED for right-sided upper back pain/shoulder blade pain radiating down right arm that began today while driving to work. Patient denies any chest pain, any recent trauma, headache, fever, chills, any heavy lifting. Patient does states mildl pleurisy. Patient denies any lower extremity swelling, pitting edema, or calf tenderness. Patient denies any abdominal pain, diarheaa, nausea, emesis, dysuria, hematuria, or flaank pain. Patient did states having generalized body cramps last week Related Data Home Medications Medication Instructions Recorded Confirmed dicyclomine 10 mg capsule 10 mg PO Q4-6H PRN 07/09/20 09/30/21 amlodipine 5 mg tablet 5 mg PO DAILY 03/03/21 09/30/21 carvedilol 12.5 mg tablet 12.5 mg PO BID 03/03/21 09/30/21 citalopram 10 mg tablet 10 mg PO DAILY 03/03/21 09/30/21 lisinopril 20 1 tab PO DAILY 03/03/21 09/30/21 mg-hydrochlorothiazide 25 mg tablet levothyroxine 50 mcg tablet 1 tab PO DAILY 08/10/21 09/30/21 Previous Rx's Medication Instructions Recorded walker #1 ea 08/10/21 acetaminophen 325 mg tablet 650 mg PO Q6H PRN 30 Days #240 tab 08/19/21 docusate sodium 100 mg capsule 100 mg PO BID 14 Days #28 cap 08/19/21 enoxaparin 40 mg/0.4 mL 40 mg (0.4 mL) SUBCUT Q24H 42 Days 08/19/21 subcutaneous syringe #16.8 ml ondansetron HCl 4 mg tablet 4 mg PO Q6H PRN 30 Days #112 tab 08/19/21 (Zofran) oxycodone 5 mg tablet 5 mg PO Q4H PRN 7 Days #42 tab 08/19/21 cyclobenzaprine 10 mg tablet 10 mg PO TID PRN 7 Days #21 tab 11/23/21 ketorolac 10 mg tablet 10 mg PO TID PRN 5 Days #20 tab 11/23/21 Allergies Allergy/AdvReac Type Severity Reaction Status Date / Time No Known Allergies Allergy Verified 11/23/21 16:37 Review of Systems Review of Systems: Right-sided shoulder blade pain going down arm. Yes all other systems are reviewed and are negative [facility] Past Medical History Medical History Cough Depression History of blood transfusion Hx of cardiac murmur Hypertension Hypothyroid IBS (irritable bowel syndrome) Increased BMI Migraines Mild HTN Morbid obesity Personal history of COVID-19 Surgical History History of incisional hernia repair Hx of cholecystectomy Hx of colonoscopy Hx of shoulder surgery Hx of tonsillectomy Hx of total hysterectomy with removal of both tubes and ovaries Social History Social History Are you a primary health care marketing manager to a significant other at home: No Do you presently have visiting nurse or other home services: No Alcohol intake: current Alcohol intake frequency: holidays/special occasions only Patient Tobacco Use Status: Former Tobacco user Quit Date: 1983 Tobacco use type: Cigarette Use of substances other than those prescribed or required for medical reasons: No Advance Directives: No Advance Directives Information Provided: Yes service: No Current occupational status: employed 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[employer] - [employer] Physical Exam ED Vital Signs: Vital Signs - 24 hr 11/23/21 16:38 11/23/21 16:46 11/23/21 18:17 Temperature 98.2 F 97.8 F Pulse Rate 60 66 Respiratory Rate 22 H 20 Blood Pressure 151/87 H 149/92 H 180/87 H Pulse Oximetry 96 96 11/23/21 23:02 Temperature Pulse Rate 68 Respiratory Rate 18 Blood Pressure 142/70 H Pulse Oximetry 98 BMI result Body Mass Index 39.9 Const General: cooperative, healthy appearing, comfortable, no acute distress, well developed, alert, awake and Physically active Orientation/consciousness: patient oriented x3 HENMT Head: Yes normal to inspection, Yes No palpable skull fracture present, Yes normocephalic, Yes atraumatic and No abrasion Eyes General: appearance normal, both eyes and all related structures Neck Neck: Yes normal visual inspection, Yes full ROM, Yes no lymphadenopathy, Yes no meningeal signs, Yes trachea midline, Yes supple, No anterior neck swelling and No tender Chest Chest palpation & inspection: normal inspection of the chest and normal palpation of entire chest wall Resp Effort & Inspection: normal respiratory effort and able to speak in complete sentences Auscultation: clear to auscultation bilaterally Cardio Jugular venous distension: no JVD Heart sounds: S1 normal heart sound present and S2 normal heart sound present GI Inspection: Yes normal to inspection and No abdominal wall ecchymosis Palpation (GI): Soft to palpation, not firm, nontender, no guarding and not rigid General: No CVA tenderness and Yes no CVA tenderness Back/Spine/Pelvis Back: no CVA tenderness, No CVA tenderness and No back tenderness Back/spine/pelvis image: 1. Tenderness on palpation. Negative for any ecchymosis, crepitus, or deformity. Negative for any spine tenderness. Skin General skin exam: no rashes or lesions noted and elasticity normal Neuro General: patient oriented x3, gait normal, no meningeal signs and CN's II-XI intact bilaterally Cranial nerves: Yes CN's II-XII intact bilaterally Extrem General: Yes normal to inspection and Yes full ROM Psych Appearance: grossly normal, well kempt and not disheveled Course Course Course Narrative: Negative for any spine tenderness. Patient denies any IV drug use or any immunocompromised disease is. Due to right-sided shoulder right scapular pain will do labs check for liver enzyme make sure there is no chance of retained stone which was showed elevated liver enzyme. Further cardiac evaluation also D-dimer make sure the risk of PE. Reevaluation(s) Reevaluation #1: EKG negative STEMI. First troponin negative. LFTs are normal. CPK elevated. IV fluids ordered. Electrolytes normal. Within for D-dimer. Time: 19:39 Reevaluation #2: Patient has elevated D-dimer. Will do chest CT and abdominal CT to look for PE and also aneurysm. Morphine ordered. No need for imaging of spine or scapula. Patient did not have any trauma. Time: 19:56 Reevaluation #3: Chest CT and abdominal CT came back negative for dissection, aneurysm, or PE. Negative for any spinal fractures or chest/abdominal etiology. With for 2nd troponin although not suspect any cardiac activity due to patient's stain right- sided upper back pain/shoulder blade pain. Not suspecting any epidural abscess or cauda equinus syndrome. Patient does not have any spine tenderness. Patient denies any IV drug use or any urinary/bowel incontinence. Patient does not have any immunocompromised diseases. Patient afebrile. Time: 21:56 Additional Reevaluation(s): Second troponin negative. Patient is safe for discharge. Patient given copy of labs and images to follow up with primary care provider. Medical Decision Making MDM Narrative Medical decision making narrative: Back spasm/muscle spasm. Lab Data Result diagrams: 11/23/21 18:36 11/23/21 18:36 Labs: Lab Results 11/23/21 11/23/21 11/23/21 Range/Units 18:36 18:36 18:36 WBC 13.2 H (4.8-10.8) X10*3/uL RBC 5.30 D (4.20-5.50) X10*6/uL Hgb 13.7 D (12.0-16.0) g/dl Hct 43.9 D (37.0-47.0) % MCV 82.8 (80.0-98.0) fL MCH 25.8 L (27.0-33.0) pg MCHC 31.2 (31.0-35.0) g/dl RDW 14.8 (11.0-16.0) % Plt Count 421 H D (160-400) X10*3/uL MPV 10.4 (9.4-12.3) fL Immature Gran % (Auto) 0.5 H (0.0-0.4) % Neut % (Auto) 77.0 H (45-73) % Lymph % (Auto) 13.4 L (20-40) % [place] % (Auto) 7.9 (2-11) % Eos % (Auto) 1.0 (0-4) % Baso % (Auto) 0.2 (0-2) % Lymph # (Auto) 1.8 (1.2-4.9) X10*3/uL [place] # (Auto) 1.0 (0.1-1.2) X10*3/uL Eos # (Auto) 0.1 (0.0-0.4) X10*3/uL Baso # (Auto) 0.0 (0.0-0.2) X10*3/uL Abs Immat Gran (auto) 0.06 H (0.00-0.03) X10*3/uL Absolute Neuts (auto) 10.2 H (2.0-8.3) x10*3/uL Absolute Nucleated RBC 0.000 (0.0-0.012) X10*3/uL Nucleated RBC % (auto) 0.0 (0.0-0.2) /100WBC PT 11.0 (9.9-13.0) SEC INR 1.0 (0.9-1.1) APTT 37.4 (24.1-38.0) SEC D-Dimer High Sensitivty 425 NG/ML Sodium 139 (135-145) mmol/L Potassium 4.5 D (3.3-5.1) mmol/L Chloride 101 (96-108) mmol/L Carbon Dioxide 26 (22-29) mmol/L Anion Gap 17 (12-20) BUN 17 H (9-16) mg/dL Creatinine 1.14 (0.5-1.4) mg/dL Estim Creat Clear Calc 63.6 Estimated GFR 48 Random Glucose 118 H (60-115) mg/dL Calcium 9.9 D (8.4-10.2) mg/dL Magnesium 2.4 (1.6-2.6) mg/dL Total Bilirubin 0.4 (0.0-1.0) mg/dL AST 33 H (5-31) U/L ALT 28 (0-31) U/L Alkaline Phosphatase 103 D (39-117) U/L Total Creatine Kinase 382 H (26-140) U/L Troponin I High Sens (<3.5-17.0) ng/L Total Protein 8.3 H (6.5-8.0) g/dL Albumin 4.7 (3.5-5.0) g/dL Lipase 148 H (8-78) U/L 11/23/21 11/23/21 Range/Units 18:36 22:10 WBC (4.8-10.8) X10*3/uL RBC (4.20-5.50) X10*6/uL Hgb (12.0-16.0) g/dl Hct (37.0-47.0) % MCV (80.0-98.0) fL MCH (27.0-33.0) pg MCHC (31.0-35.0) g/dl RDW (11.0-16.0) % Plt Count (160-400) X10*3/uL MPV (9.4-12.3) fL Immature Gran % (Auto) (0.0-0.4) % Neut % (Auto) (45-73) % Lymph % (Auto) (20-40) % [place] % (Auto) (2-11) % Eos % (Auto) (0-4) % Baso % (Auto) (0-2) % Lymph # (Auto) (1.2-4.9) X10*3/uL [place] # (Auto) (0.1-1.2) X10*3/uL Eos # (Auto) (0.0-0.4) X10*3/uL Baso # (Auto) (0.0-0.2) X10*3/uL Abs Immat Gran (auto) (0.00-0.03) X10*3/uL Absolute Neuts (auto) (2.0-8.3) x10*3/uL Absolute Nucleated RBC (0.0-0.012) X10*3/uL Nucleated RBC % (auto) (0.0-0.2) /100WBC PT (9.9-13.0) SEC INR (0.9-1.1) APTT (24.1-38.0) SEC D-Dimer High Sensitivty NG/ML Sodium (135-145) mmol/L Potassium (3.3-5.1) mmol/L Chloride (96-108) mmol/L Carbon Dioxide (22-29) mmol/L Anion Gap (12-20) BUN (9-16) mg/dL Creatinine (0.5-1.4) mg/dL Estim Creat Clear Calc Estimated GFR Random Glucose (60-115) mg/dL Calcium (8.4-10.2) mg/dL Magnesium (1.6-2.6) mg/dL Total Bilirubin (0.0-1.0) mg/dL AST (5-31) U/L ALT (0-31) U/L Alkaline Phosphatase (39-117) U/L Total Creatine Kinase (26-140) U/L Troponin I High Sens < 3.5 < 3.5 (<3.5-17.0) ng/L Total Protein (6.5-8.0) g/dL Albumin (3.5-5.0) g/dL Lipase (8-78) U/L ECG Data Interpretation: Sinus bradycardia. Ventricular rate 58. DE interval 196. QRS 80. QTC 429. Negative STEMI Discharge Plan Discharge Clinical Impression: Muscle spasm Patient Disposition: Home, Self-Care Instructions: Muscle Spasm (ED) Additional Instructions: Her EKG, blood work, and images came back negative for heart attack, aortic dissection, pulmonary embolus, fractures, electrolyte deficiency, dehydration, or any other medical/emergent surgical etiologies. You will be discharged with pain medication and muscle relaxers. Please follow-up with primary care provider. Prescriptions: New ketorolac 10 mg tablet 10 mg PO TID PRN (Reason: pain) 5 Days Qty: 20 0RF cyclobenzaprine 10 mg tablet 10 mg PO TID PRN (Reason: muscle spasm) 7 Days Qty: 21 0RF Rx Instructions: side effect is drowsiness. Do not take at or while driving. No Action dicyclomine 10 mg Capsule 10 mg PO Q4-6H PRN (Reason: Abdominal Pain) 0RF levothyroxine 50 mcg tablet 1 tab PO DAILY 0RF acetaminophen 325 mg Tablet 650 mg PO Q6H PRN (Reason: Pain, Mild (Pain Scale 1-3)) 30 Days Qty: 240 0RF docusate sodium 100 mg Capsule 100 mg PO BID 14 Days Qty: 28 0RF oxycodone 5 mg Tablet 5 mg PO Q4H PRN (Reason: Pain, Moderate (Pain Scale 4-6) 7 Days Qty: 42 0RF enoxaparin 40 mg/0.4 mL Syringe 40 mg subcut Q24H 42 Days Qty: 16.8 0RF ondansetron HCl [Zofran] 4 mg tablet 4 mg PO Q6H PRN (Reason: nausea and vomiting) 30 Days Qty: 112 2RF lisinopril-hydrochlorothiazide 20-25 mg tablet 1 tab PO DAILY 0RF amlodipine 5 mg tablet 5 mg PO DAILY 0RF carvedilol 12.5 mg tablet 12.5 mg PO BID 0RF Rx Instructions: must administer with a meal/food citalopram 10 mg tablet 10 mg PO DAILY 0RF (DME) walker Misc See Rx Instructions .ROUTE .MEDSUPPLY Qty: 1 0RF Rx Instructions: Folding front wheeled walker Stand Alone Forms: Work/School Release Interventions: ED Discharge Assessment Last Done: 11/23/21 23:13 Discharge Date/Time: 11/23/21 23:14 Print Language: Cambodian
[2021-11-23 18:42] LABS: MANUAL DIFF FLAG NO
[2021-11-23] MEDS: Ketorolac Tromethamine 30 MG/ML VIAL IVPUSH (18:42)
[2021-11-23] MEDS: Cyclobenzaprine HCl 10 MG TABLET PO (18:42)
[2021-11-23 18:45] LABS: Basophils Percent Auto 0.2 % (0-2); Eosinophils Absolute Auto 0.1 X10*3/uL (0.0-0.4); Hematocrit 43.9 % (37.0-47.0); Hemoglobin 13.7 g/dl (12.0-16.0); Imm Gran Abs Auto 0.06 X10*3/uL (0.00-0.03); Imm Gran Pct Auto 0.5 % (0.0-0.4); Lymphocytes Absolute Auto 1.8 X10*3/uL (1.2-4.9); Lymphocytes Percent Auto 13.4 % (20-40); Mean Corpuscular HGB Conc 31.2 g/dl (31.0-35.0); Mean Corpuscular Hemoglobin 25.8 pg (27.0-33.0); Mean Corpuscular Volume 82.8 fL (80.0-98.0); Mean Platelet Volume 10.4 fL (9.4-12.3); Monocytes Percent Auto 7.9 % (2-11); Neutrophils Absolute Auto 10.2 x10*3/uL (2.0-8.3); Platelet Count 421 X10*3/uL (160-400); Red Cell Distribution Width 14.8 % (11.0-16.0); White Blood Count 13.2 X10*3/uL (4.8-10.8)
[2021-11-23 18:55] LABS: Partial Thromboplastin Time 37.4 SEC (24.1-38.0)
[2021-11-23 19:03] LABS: Troponin-I High Sensitivity < 3.5 ng/L (<3.5-17.0)
[2021-11-23 19:04] LABS: Alanine Aminotransferase 28 U/L (0-31); Albumin Level 4.7 g/dL (3.5-5.0); Alkaline Phosphatase 103 U/L (39-117); Anion Gap 17 (12-20); Aspartate Amino Transferase 33 U/L (5-31); Bilirubin Total 0.4 mg/dL (0.0-1.0); Blood Urea Nitrogen 17 mg/dL (9-16); Calcium 9.9 mg/dL (8.4-10.2); Carbon Dioxide 26 mmol/L (22-29); Chloride 101 mmol/L (96-108); Creatinine Clr Calc Pharmacy 63.6; Estimated Glomerular Filt Rate 48; Glucose Random 118 mg/dL (60-115); Lipase 148 U/L (8-78); Magnesium 2.4 mg/dL (1.6-2.6); Potassium 4.5 mmol/L (3.3-5.1); Sodium 139 mmol/L (135-145); Total Protein 8.3 g/dL (6.5-8.0)
[2021-11-23 19:52] LABS: D Dimer High Sensitivity 425 NG/ML
[2021-11-23] MEDS: Morphine Sulfate 4 MG/ML CARTRIDGE IVPUSH (20:08)
[2021-11-23] MEDS: iohexoL 350 MG/ML 100 ML INFUS..BTL IV (20:26)
[2021-11-23] MEDS: 0.9 % Sodium Chloride 1,000 ML 999 ML IV (21:06)
[2021-11-23] MEDS: Famotidine/PF 20 MG/2 ML VIAL IVPUSH (22:10)
[2021-11-23 22:35] LABS: Troponin-I High Sensitivity < 3.5 ng/L (<3.5-17.0)
[2021-11-23 23:02] VITALS: BP 142/70; PULSE 68; RESP 18; O2SAT 98
--- NOTE | 2021-11-23 23:12 | PC.NURSE ---
pt a&o, no sob or chest pain. reviewed discharge instructions. pt verbalized understanding.
== END 2021-11-23 23:14 | disposition home or self-care (01) ==
PROVIDERS: Physician Assistant; Emergency Provider Internal Medicine; PCP Internal Medicine
DX: M62.838 Other muscle spasm (principal); R00.1 Bradycardia, unspecified; I10 Essential (primary) hypertension; Z87.891 Personal history of nicotine dependence
CPT/HCPCS: 36415; 71275; 74177; 80053; 82550; 83690; 83735; 84484; 85025; 85379; 85610; 85730; 93005; 96361; 96374; 96375; 99284; 99285; J1885; J2270; Q9967

== ENCOUNTER 2022-01-06 13:56 | Emergency (ER) | payer OTHER, SELFPAY ==
--- NOTE | ~2022-01-06 | CT_ITS ---
EXAMINATION: CT HEAD WITHOUT CONTRAST CLINICAL INFORMATION: Head pain status post trauma while working. COMPARISON: 02/18/2021 head CTA. TECHNIQUE: Contiguous axial imaging was performed from the skull base to vertex without intravenous administration of contrast. Coronal and sagittal reformatted images were obtained. This CT examination was performed using dose optimization techniques as appropriate, variously including the following: *Automated exposure control *Adjustment of mA and/or kV according to patient size (this includes techniques or standardized protocols for targeted exams where dose is matched to indication/reason for exam; i.e. extremities or head) *Use of iterative reconstruction technique DLP: 722 mGy-cm FINDINGS: There is no evidence of acute intracranial hemorrhage or territorial infarction. No abnormal mass effect or midline shift is seen. Hernández to white matter differentiation is well preserved. No extra-axial fluid collections are identified. The ventricles are normal in size. There is no abnormal attenuation within the brain parenchyma. The osseous structures and soft tissues are normal. The mastoid air cells and visualized portions of the paranasal sinuses are well aerated. CT/CT head/brain wo con IMPRESSION: No acute intracranial pathology.
[2022-01-06 14:06] VITALS: BP 153/85; PULSE 65; RESP 18; TEMP 36.8; O2SAT 98; BMI 38.2
--- NOTE | 2022-01-06 14:27 | ED.HEATRA ---
HPI - Head Injury General Chief complaint: Head Injury Stated complaint: head inj wri Time Seen by Provider: 01/06/22 14:11 Source: patient Mode of arrival: ambulatory Limitations: no limitations History of Present Illness HPI Narrative: 61-year-old female with history of hypertension, hypothyroidism, depression here with reports of headache, nausea and dizziness after hitting her head while working. Patient tells me she bent down to retrieve an item from a lower cabinet and when she stood up she hit her head on the corner of it open cabinet door. There was no loss of consciousness. Patient is not on any anticoagulation Related Data Home Medications Medication Instructions Recorded Confirmed dicyclomine 10 mg capsule 10 mg PO Q4-6H PRN 07/09/20 09/30/21 amlodipine 5 mg tablet 5 mg PO DAILY 03/03/21 09/30/21 carvedilol 12.5 mg tablet 12.5 mg PO BID 03/03/21 09/30/21 citalopram 10 mg tablet 10 mg PO DAILY 03/03/21 09/30/21 lisinopril 20 1 tab PO DAILY 03/03/21 09/30/21 mg-hydrochlorothiazide 25 mg tablet levothyroxine 50 mcg tablet 1 tab PO DAILY 08/10/21 09/30/21 Previous Rx's Medication Instructions Recorded walker #1 ea 08/10/21 acetaminophen 325 mg tablet 650 mg PO Q6H PRN 30 Days #240 tab 08/19/21 docusate sodium 100 mg capsule 100 mg PO BID 14 Days #28 cap 08/19/21 enoxaparin 40 mg/0.4 mL 40 mg (0.4 mL) SUBCUT Q24H 42 Days 08/19/21 subcutaneous syringe #16.8 ml ondansetron HCl 4 mg tablet 4 mg PO Q6H PRN 30 Days #112 tab 08/19/21 (Zofran) oxycodone 5 mg tablet 5 mg PO Q4H PRN 7 Days #42 tab 08/19/21 cyclobenzaprine 10 mg tablet 10 mg PO TID PRN 7 Days #21 tab 11/23/21 ketorolac 10 mg tablet 10 mg PO TID PRN 5 Days #20 tab 11/23/21 Allergies Allergy/AdvReac Type Severity Reaction Status Date / Time No Known Allergies Allergy Verified 04/05/22 16:37 Review of Systems Review of Systems: Yes all other systems are reviewed and are negative Constitutional: Constitutional: Reports no additional constitutional complaints, Denies body ache(s), Denies chills, Denies fever(s), Reports headache(s) and Denies weakness Eyes: Eyes: Reports no additional eye complaints and Denies change in vision ENT: Reports system reviewed and no additional complaints, except as documented, Reports dizziness, Reports headache(s), Denies nasal congestion, Denies nasal discharge and Denies neck pain Cardiovascular: Cardiovascular: Reports no additional cardiovascular complaints, Denies chest pain, Denies leg edema and Denies dyspnea Respiratory: Respiratory: Reports no additional respiratory complaints, Denies cough and Denies dyspnea Gastrointestinal: Gastrointestinal: Reports no additional gastrointestinal complaints, Denies abdominal pain, Denies diarrhea, Reports nausea and Denies vomiting Genitourinary: Genitourinary: Reports no additional female genitourinary complaints and Denies urinary incontinence Musculoskeletal: Musculoskeletal: Reports no additional musculoskeletal complaints, Denies back pain, Denies arthralgias, Denies joint swelling, Denies neck pain, Denies numbness and Denies tingling Integumentary/Breasts: Skin/Breast: Reports system reviewed and no additional complaints, except as docu and Denies rash Neurologic: Reports system reviewed and no additional complaints, except as documented, Denies Abnormal speech present, Reports dizziness, Reports headache(s), Denies numbness, Denies tingling and Denies weakness PMFSH Past Medical History Attestation statement: The following information was validated with the patient. Source: old records reviewed and nursing notes reviewed Medical History Cough Depression History of blood transfusion Hx of cardiac murmur Hypertension Hypothyroid IBS (irritable bowel syndrome) Increased BMI Migraines Mild HTN Morbid obesity Personal history of COVID-19 Surgical History History of incisional hernia repair Hx of cholecystectomy Hx of colonoscopy Hx of shoulder surgery Hx of tonsillectomy Hx of total hysterectomy with removal of both tubes and ovaries Social History Social History Are you a primary nurse healthcare manager to a significant other at home: No Do you presently have visiting nurse or other home services: No Alcohol intake: current Alcohol intake frequency: holidays/special occasions only Patient Tobacco Use Status: Former Tobacco user Quit Date: 1983 Tobacco use type: Cigarette Advance Directives: No Advance Directives Information Provided: No service: No Current occupational status: employed Current occupation: [employer] - [employer] Physical Exam Vital Signs: Vital Signs: Last Vital Signs Temp 98.2 F 01/06/22 14:06 Pulse 65 01/06/22 14:06 Resp 18 01/06/22 16:02 BP 153/85 H 01/06/22 14:06 Pulse Ox 98 01/06/22 14:06 BMI result Body Mass Index 38.2 Const: General: cooperative, healthy appearing, comfortable and no acute distress Orientation/consciousness: patient oriented x3 Limitations: no limitations HEENT: Head: Yes normal to inspection, No Mansfield's sign and No raccoon eyes Ears: hearing grossly normal bilaterally and TM's normal bilaterally General nose exam: Normal external nose present Face and sinus: Yes normal facial exam Mouth: Normal oral and palatal mucosa present Throat: Yes posterior oropharynx normal Eyes: General: appearance normal, both eyes and all related structures Pupils: Equal, round and reactive pupils present Neck: Other: no pain Neck: Yes normal visual inspection and Yes full ROM Chest: Chest palpation & inspection: normal inspection of the chest Resp: Effort & Inspection: normal respiratory effort Auscultation: clear to auscultation bilaterally Cardio: Rate: regular rate Rhythm: regular rhythm Peripheral pulses: Peripheral pulses 2+ throughout GI: Inspection: Yes normal to inspection Palpation (GI): Soft to palpation and nontender Auscultation: normal bowel sounds Back/Spine/Pelvis: Thoracic/Lumbar Spine: thoracic and lumbar spine normal to inspection Skin: General skin exam: no rashes or lesions noted Neuro: General: patient oriented x3, moves all extremities, no focal motor deficits and normal sensation to monofilament Cranial nerves: Yes CN's II-XII intact bilaterally, Yes Equal, round and reactive pupils present, Yes Bilaterally intact EOM present, Yes Nystagmus not present, Yes Normal facial strength present and Yes Midline tongue present Cognition (Neuro): normal cognition Speech: No Abnormal speech present Gait exam (Neuro): Normal gait present Motor exam (neuro): 5/5 motor strength present throughout Sensory Exam: Normal double simultaneous stimulation for sensation Coordination: [id number] test normal and tandem gait normal Extrem: General: Yes normal to inspection Course Course Course Narrative: 61-year-old female here with headache nausea, dizziness after head injury which occurred at work just prior to arrival. Normal neuro exam. Will check CT head, provide analgesia and reassess Reevaluation(s) Reevaluation #1: CT head shows no acute finding. HERNANDEZ improved with APAP. Tolerating PO. Likely mild concussion. Recommend follow-up with were connection. Reviewed worrisome signs and symptoms of when to return to the emergency department. Comfortable discharge home. Time: 16:25 MDM - Head Injury Medical Records Attestation: I reviewed the patient's medical records. Lab Data Attestation: I reviewed the patient's lab results. Imaging Data CT scan - head: Attestation: I personally reviewed and interpreted this imaging study as follows: Radiologist's impression: FINDINGS: There is no evidence of acute intracranial hemorrhage or territorial infarction. No abnormal mass effect or midline shift is seen. Hernández to white matter differentiation is well preserved. No extra-axial fluid collections are identified. The ventricles are normal in size. There is no abnormal attenuation within the brain parenchyma. The osseous structures and soft tissues are normal. The mastoid air cells and visualized portions of the paranasal sinuses are well aerated. ? CT/CT head/brain wo con IMPRESSION: No acute intracranial pathology. Discharge Plan Discharge Clinical Impression: Concussion without loss of consciousness Patient Disposition: Home, Self-Care Instructions: Concussion (ED) Additional Instructions: Brain rest, limit screen time Motrin or tylenol for pain as needed follow-up with work connection [id number] Prescriptions: No Action dicyclomine 10 mg Capsule 10 mg PO Q4-6H PRN (Reason: Abdominal Pain) 0RF ketorolac 10 mg tablet 10 mg PO TID PRN (Reason: pain) 5 Days Qty: 20 0RF cyclobenzaprine 10 mg tablet 10 mg PO TID PRN (Reason: muscle spasm) 7 Days Qty: 21 0RF Rx Instructions: side effect is drowsiness. Do not take at or while driving. levothyroxine 50 mcg tablet 1 tab PO DAILY 0RF acetaminophen 325 mg Tablet 650 mg PO Q6H PRN (Reason: Pain, Mild (Pain Scale 1-3)) 30 Days Qty: 240 0RF docusate sodium 100 mg Capsule 100 mg PO BID 14 Days Qty: 28 0RF oxycodone 5 mg Tablet 5 mg PO Q4H PRN (Reason: Pain, Moderate (Pain Scale 4-6) 7 Days Qty: 42 0RF enoxaparin 40 mg/0.4 mL Syringe 40 mg subcut Q24H 42 Days Qty: 16.8 0RF ondansetron HCl [Zofran] 4 mg tablet 4 mg PO Q6H PRN (Reason: nausea and vomiting) 30 Days Qty: 112 2RF lisinopril-hydrochlorothiazide 20-25 mg tablet 1 tab PO DAILY 0RF amlodipine 5 mg tablet 5 mg PO DAILY 0RF carvedilol 12.5 mg tablet 12.5 mg PO BID 0RF Rx Instructions: must administer with a meal/food citalopram 10 mg tablet 10 mg PO DAILY 0RF (DME) walker Misc See Rx Instructions .ROUTE .MEDSUPPLY Qty: 1 0RF Rx Instructions: Folding front wheeled walker Referrals: Collins Irene MD [Primary Care Provider] - 1 week (as needed) Stand Alone Forms: Work/School Release Interventions: ED Discharge Assessment Last Done: 01/06/22 16:27 Discharge Date/Time: 01/06/22 16:28
[2022-01-06] MEDS: Acetaminophen 325 MG TABLET 975 MG PO (14:29)
[2022-01-06 16:02] VITALS: RESP 18
== END 2022-01-06 16:28 | disposition home or self-care (01) ==
PROVIDERS: Emergency Provider Emergency Medicine; PCP Internal Medicine
DX: S06.0X0A Concussion without loss of consciousness, initial encounter (principal); W01.10XA Fall on same level from slipping, tripping and stumbling with subsequent striking against unspecified object, initial encounter; Y93.9 Activity, unspecified; Y92.9 Unspecified place or not applicable; Y99.0 Civilian activity done for income or pay; Z79.899 Other long term (current) drug therapy
CPT/HCPCS: 70450; 99283; 99284

== ENCOUNTER → 2022-01-10 13:37 | Outpatient (BNVA) | payer OTHER, SELFPAY | PROVIDERS: PCP Internal Medicine; Visit Provider Internal Medicine | DX: Z13.89 Encounter for screening for other disorder (principal) | CPT/HCPCS: 72050; 99203 ==

== ENCOUNTER → 2022-02-08 13:39 | Outpatient (BNVA) | payer OTHER, SELFPAY | PROVIDERS: PCP Internal Medicine; Visit Provider Internal Medicine | DX: Z13.89 Encounter for screening for other disorder (principal) | CPT/HCPCS: 99213 ==

== ENCOUNTER 2022-02-15 11:09 | Outpatient (REF) | payer OTHER, SELFPAY ==
--- NOTE | ~2022-02-15 | MR_ITS ---
MR CERVICAL SPINE WITHOUT IV CONTRAST CLINICAL INFORMATION: Intermittent left arm numbness. COMPARISON: None available. TECHNIQUE: MRI of the cervical spine was obtained using routine sequences without contrast. FINDINGS: Reversal of the cervical lordosis. Mild anterior subluxation of C4 on C5 and C5 on C6. The vertebral body heights are maintained. There is moderate disc volume loss at C5-C6, C6-C7, and C7-T1. The craniocervical junction is unremarkable. There is no bone marrow edema. There are no acute fractures. Cervical arterial flow voids are maintained. No cord signal changes. No significant extraspinal soft tissue findings. C2-C3: Uncovertebral joint spurring and hypertrophic facet arthropathy result in moderate left-sided foraminal stenosis. No central canal and no right foraminal stenosis. C3-C4: Disc osteophyte and ligamentum flavum thickening mildly narrow the central canal. Advanced uncovertebral joint hypertrophy and hypertrophic facet arthropathy result in moderate to severe bilateral foraminal stenosis. C4-C5: Anterior subluxation. Disc osteophyte mildly narrows the central canal. Advanced uncovertebral joint hypertrophy and hypertrophic facet arthropathy result in moderate to severe bilateral foraminal stenosis. C5-C6: Anterior subluxation. Disc osteophyte and ligamentum flavum thickening result in moderate central canal stenosis and flattening of the cord. Advanced uncovertebral joint hypertrophy and hypertrophic facet arthropathy result in severe right and moderate left foraminal stenosis. C6-C7: Disc osteophyte mildly narrows the central canal. Advanced uncovertebral joint hypertrophy and hypertrophic facet arthropathy result in severe left and moderate right foraminal stenosis. C7-T1: Disc osteophyte mildly narrows the central canal. Advanced uncovertebral joint hypertrophy and hypertrophic facet arthropathy result in severe bilateral foraminal stenosis. MR/MR cervical spine wo con IMPRESSION: Reversal of the cervical lordosis and multilevel cervical spondylosis. At C5-C6, spondylitic changes result in moderate central canal stenosis and flattening of the cervical cord. Advanced spondylitic changes result in varying degrees of moderate to severe foraminal stenosis bilaterally throughout the cervical spine as discussed in detail above.
== END 2022-02-15 11:10 | disposition home or self-care (01) ==
LOC: HO.MRI 11:09
PROVIDERS: Visit Provider Internal Medicine
DX: R20.0 Anesthesia of skin (principal); M50.30 Other cervical disc degeneration, unspecified cervical region
CPT/HCPCS: 72141

== ENCOUNTER 2022-05-05 13:18 | Outpatient (REF) | payer OTHER, SELFPAY ==
[2022-05-05 15:21] LABS: Alanine Aminotransferase 23 U/L (0-31); Albumin Level 4.4 g/dL (3.5-5.0); Alkaline Phosphatase 91 U/L (39-117); Aspartate Amino Transferase 23 U/L (5-31); Bilirubin Direct 0.2 mg/dL (0.0-0.5); Bilirubin Total 0.5 mg/dL (0.0-1.0); Total Protein 7.7 g/dL (6.5-8.0)
[2022-05-05 15:41] LABS: TSH reflex Free T4 4.35 uIU/mL (0.32-4.0)
[2022-05-05 16:13] LABS: Free T4 (Free Thyroxine) 1.05 ng/dL (0.71-1.85)
== END 2022-05-05 13:19 | disposition home or self-care (01) ==
LOC: HO.LAB 13:18
PROVIDERS: Visit Provider Internal Medicine
DX: I10 Essential (primary) hypertension (principal); E03.9 Hypothyroidism, unspecified
CPT/HCPCS: 36415; 80076; 84439; 84443

== ENCOUNTER 2022-05-15 19:24 | Emergency (ER) | payer OTHER, SELFPAY ==
[2022-05-15 20:07] VITALS: BP 120/77; PULSE 88; RESP 20; TEMP 37.1; O2SAT 94; BMI 36.6
--- NOTE | 2022-05-15 20:15 | ED_ITS ---
HPI - General Adult General Chief complaint: General Medical Stated complaint: L elbow swelling Time Seen by Provider: 05/15/22 20:13 Source: patient Mode of arrival: ambulatory Limitations: no limitations History of Present Illness HPI narrative: Patient is a 61 year old female presenting to the emergency department today with left elbow redness and swelling. Patient states that she woke up this morn ing and noticed her left elbow was much more swollen and red. Patient denies any dizziness, lightheadedness, abdominal pain, nausea, vomiting, fever, blurry vision, double vision, loss of vision, chest pain, difficulty breathing, shortness of breath, back pain, night sweats, pain with urination, increased urinary frequency, increased urinary urgency, blood in her urine or stool, syncope or a near syncopal episode, recent trauma or falls, bowel incontinence, bladder incontinence, bowel retention, bladder retention, or any other complaints at this time. Onset (ago): hour(s) Location: left and upper extremity Radiation: non-radiation Severity: mild Severity scale (1-10): 2 Quality: aching and dull Pain Consistency: constant Relieving factors: none Exacerbating factors: none Treatments prior to arrival: none Related Data Home Medications Medication Instructions Recorded Confirmed dicyclomine 10 mg capsule 10 mg PO Q4-6H PRN Abdominal Pain 07/09/20 09/30/21 amlodipine 5 mg tablet 5 mg PO DAILY 03/03/21 09/30/21 carvedilol 12.5 mg tablet 12.5 mg PO BID 03/03/21 09/30/21 citalopram 10 mg tablet 10 mg PO DAILY 03/03/21 09/30/21 lisinopril 20 1 tab PO DAILY 03/03/21 09/30/21 mg-hydrochlorothiazide 25 mg tablet levothyroxine 50 mcg tablet 1 tab PO DAILY 08/10/21 09/30/21 Previous Rx's Medication Instructions Recorded walker #1 ea 08/10/21 acetaminophen 325 mg tablet 650 mg PO Q6H PRN Pain, Mild (Pain 08/19/21 Scale 1-3) 30 days #240 tabs docusate sodium 100 mg capsule 100 mg PO BID 14 days #28 caps 08/19/21 enoxaparin 40 mg/0.4 mL 40 mg (0.4 mL) subcut Q24H 42 days 08/19/21 subcutaneous syringe #16.8 mL ondansetron HCl 4 mg tablet 4 mg PO Q6H PRN nausea and 08/19/21 (Zofran) vomiting 30 days #112 tabs oxycodone 5 mg tablet 5 mg PO Q4H PRN Pain, Moderate 08/19/21 (Pain Scale 4-6 7 days #42 tabs cyclobenzaprine 10 mg tablet 10 mg PO TID PRN muscle spasm 7 11/23/21 days #21 tabs ketorolac 10 mg tablet 10 mg PO TID PRN pain 5 days #20 11/23/21 tabs cephalexin 500 mg capsule 500 mg PO Q6H 7 days #28 caps 05/15/22 ondansetron 4 mg disintegrating 4 mg PO Q8H 3 days #9 tabs 05/15/22 tablet prednisone 20 mg tablet 20 mg PO DAILY 12 days #26 tabs 05/15/22 Allergies Allergy/AdvReac Type Severity Reaction Status Date / Time No Known Allergies Allergy Verified 05/15/22 20:07 Review of Systems Constitutional: Constitutional: Reports no additional constitutional complaints, Denies chills, Denies fever(s) and Denies night sweats Eyes: Eyes: Reports no additional eye complaints, Denies blurry vision, Denies change in vision, Denies diplopia, Denies eye discharge, Denies loss of vision and Denies eye pain ENT: Denies dizziness Cardiovascular: Cardiovascular: Reports no additional cardiovascular complaints, Denies chest pain, Denies lightheadedness, Denies Loss of Consciousness and Denies dyspnea Respiratory: Respiratory: Reports no additional respiratory complaints and Denies dyspnea Gastrointestinal: Gastrointestinal: Reports no additional gastrointestinal complaints, Denies abdominal pain, Denies melena, Denies hematochezia, Denies change in bowel habits and Denies change in stool character Genitourinary: Genitourinary: Denies hematuria, Denies urinary frequency, Denies dysuria, Denies urinary incontinence, Denies urinary hesitancy and Denies urinary urgency Musculoskeletal: Musculoskeletal: Reports no additional musculoskeletal complaints, Denies numbness and Denies tingling Comments: left elbow redness and swelling Neurologic: Denies dizziness, Denies loss of vision, Denies numbness and Denies tingling Psychiatric: Psychiatric: Reports no additional psychiatric complaints Endocrine: Endocrine: Reports no additional endocrine complaints Hematologic/Lymphatic: Hematologic/Lymphatic: Reports no additional hematologic/lymphatic complaints Allergic/Immunologic: Allergic/Immunologic: Reports no additional allergic/immunologic complaints [facility] Past Medical History Attestation statement: The following information was validated with the patient. Source: old records reviewed Medical History Cough Depression History of blood transfusion Hx of cardiac murmur Hypertension Hypothyroid IBS (irritable bowel syndrome) Increased BMI Migraines Mild HTN Morbid obesity Personal history of COVID-19 Surgical History History of incisional hernia repair Hx of cholecystectomy Hx of colonoscopy Hx of shoulder surgery Hx of tonsillectomy Hx of total hysterectomy with removal of both tubes and ovaries Social History Social History Are you a primary congregational care pastor to a significant other at home: No Do you presently have visiting nurse or other home services: No Alcohol intake: current Alcohol intake frequency: holidays/special occasions only Patient Tobacco Use Status: Former Tobacco user Quit Date: 1983 Tobacco use type: Cigarette Advance Directives: No Advance Directives Information Provided: No service: No Current occupational status: employed 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 - [employer] Physical Exam ED Vital Signs: Vital Signs - 24 hr 05/15/22 20:07 Temperature 98.8 F Pulse Rate 88 Respiratory Rate 20 Blood Pressure 120/77 Pulse Oximetry 94 Oxygen Delivery Method Room Air BMI result Body Mass Index 36.6 Const General: cooperative, no acute distress, alert and awake Nutritional Appearance: well nourished Orientation/consciousness: patient oriented x3 Limitations: no limitations [facility] Head: Yes normal to inspection and Yes atraumatic Ears: hearing grossly normal bilaterally and external ears normal General nose exam: Normal external nose present, no nasal discharge noted and no epistaxis Face and sinus: Yes normal facial exam, No abrasion and No laceration Mouth: Normal oral and palatal mucosa present, no drooling and no muffled voice Eyes General: appearance normal, both eyes and all related structures Periorbital: periorbital findings normal Eyelids: Yes eyelids normal Conjunctivae: conjunctivae normal Pupils: Equal, round and reactive pupils present EOM: EOMs intact bilaterally Neck Neck: Yes normal visual inspection, Yes full ROM and Yes no lymphadenopathy Chest Chest palpation & inspection: normal inspection of the chest Resp Effort & Inspection: normal respiratory effort and able to speak in complete sentences Auscultation: clear to auscultation bilaterally Cardio Rate: regular rate Rhythm: regular rhythm GI Inspection: Yes normal to inspection Neuro General: patient oriented x3 and moves all extremities Cranial nerves: Yes Equal, round and reactive pupils present Cognition (Neuro): normal cognition Motor exam (neuro): 5/5 motor strength present throughout Sensory Exam: Normal double simultaneous stimulation for sensation Coordination: [id number] test normal Extrem Other: left elbow swelling and redness General: Yes full ROM and Yes capillary refill normal Psych Appearance: grossly normal Mental Status: mental status grossly normal Affect: normal affect Attitude: cooperative Thought process: Normal thought process present Thought content: Normal thought content present Insight: Good insight present (Psych) Medical Decision Making MDM Narrative Medical decision making narrative: Patient is a 61 year old female presenting to the emergency department today with left elbow swelling and redness. Patient's physical exam showed swelling and redness to the left elbow however, full ROM. Patient's physical exam is consistent with gout vs. cellulitis, patient's exam is not suspicious for a septic joint. I explained my physical exam findings to the patient. I answered all questions asked by the patient. I stressed the importance of the patient taking her medication as prescribed. I stressed the importance of the patient following up with her primary care provider. I stressed the importance of the patient returning to the emergency department immediately if her symptoms were to worsen or if she were to develop any dizziness, shortness of breath, difficulty breathing, chest pain, blurry vision, loss of vision, nausea, vomiting, abdominal pain, fever, chills, back pain, or any other complaints. Patient verbalized agreement and understanding with this treatment plan and discharge. Differential Diagnosis Differential Diagnosis: cellulitis, gout Medical Records Medical records reviewed: Yes I reviewed the patient's medical records. Discharge Plan Discharge Clinical Impression: Cellulitis Patient Disposition: Home, Self-Care Instructions: Cellulitis (ED) Additional Instructions: Follow up with your primary care provider. Return to the emergency department immediately if your symptoms worsen or if you develop any dizziness, shortness of breath, difficulty breathing, chest pain, blurry vision, loss of vision, nausea, vomiting, abdominal pain, fever, chills, back pain, or any other complaints. Prescriptions: New prednisone 20 mg tablet 20 mg PO DAILY 12 Days Qty: 26 0RF Rx Instructions: Take 3 tablets for 5 days THEN; Take 2 tablets for 4 days THEN; Take 1 tablet for 3 days cephalexin 500 mg capsule 500 mg PO Q6H 7 Days Qty: 28 0RF ondansetron 4 mg tablet,disintegrating 4 mg PO Q8H 3 Days Qty: 9 0RF No Action dicyclomine 10 mg Capsule 10 mg PO Q4-6H PRN (Reason: Abdominal Pain) ketorolac 10 mg tablet 10 mg PO TID PRN (Reason: pain) 5 Days Qty: 20 0RF cyclobenzaprine 10 mg tablet 10 mg PO TID PRN (Reason: muscle spasm) 7 Days Qty: 21 0RF Rx Instructions: side effect is drowsiness. Do not take at or while driving. levothyroxine 50 mcg tablet 1 tab PO DAILY acetaminophen 325 mg Tablet 650 mg PO Q6H PRN (Reason: Pain, Mild (Pain Scale 1-3)) 30 Days Qty: 240 0RF docusate sodium 100 mg Capsule 100 mg PO BID 14 Days Qty: 28 0RF oxycodone 5 mg Tablet 5 mg PO Q4H PRN (Reason: Pain, Moderate (Pain Scale 4-6) 7 Days Qty: 42 0RF enoxaparin 40 mg/0.4 mL Syringe 40 mg subcut Q24H 42 Days Qty: 16.8 0RF ondansetron HCl [Zofran] 4 mg tablet 4 mg PO Q6H PRN (Reason: nausea and vomiting) 30 Days Qty: 112 2RF lisinopril-hydrochlorothiazide 20-25 mg tablet 1 tab PO DAILY amlodipine 5 mg tablet 5 mg PO DAILY carvedilol 12.5 mg tablet 12.5 mg PO BID Rx Instructions: must administer with a meal/food citalopram 10 mg tablet 10 mg PO DAILY (BENNY) [facility] See Rx Instructions .ROUTE .MEDSUPPLY Qty: 1 0RF Rx Instructions: Les villarreal Referrals: Collins Irene MD [Primary Care Provider] - Print Language: Grenadian
[2022-05-15] MEDS: Ondansetron ODT 4 MG TAB.RAPDIS TRANSLINGU (20:20)
[2022-05-15] MEDS: cephALEXin 500 MG CAPSULE PO (20:20)
== END 2022-05-16 05:42 | disposition home or self-care (01) ==
PROVIDERS: Emergency Provider Emergency Medicine; PCP Internal Medicine
DX: L03.114 Cellulitis of left upper limb (principal); Z87.891 Personal history of nicotine dependence; Z79.899 Other long term (current) drug therapy
CPT/HCPCS: 99281

== ENCOUNTER → 2022-06-09 13:18 | Outpatient (RCR) | payer OTHER, SELFPAY ==
[2020-10-13 14:14] LABS: COVID-19 Test Negative (Negative)
[2020-11-05 15:24] LABS: COVID-19 Test Negative (Negative); IDNOW Serial# 55D5AD1C
[2020-11-12 15:07] LABS: COVID-19 Test Negative (Negative); IDNOW Serial# 55D5AD1C
[2020-11-19 13:55] LABS: COVID-19 Test Negative (Negative)
[2020-11-27 16:07] LABS: COVID-19 Test Negative (Negative)
[2020-12-03 14:59] LABS: COVID-19 Test Negative (Negative)
[2020-12-18 14:08] LABS: COVID-19 Test Negative (Negative); IDNOW Serial# 55D5AD1C
[2020-12-31 15:41] LABS: COVID-19 Test Negative (Negative)
[2021-01-20 14:06] LABS: COVID-19 Test Negative (Negative); IDNOW Serial# 55D5AD1C
== END | disposition home or self-care (01) ==
LOC: HO.EMPCOV 10-13 13:45
PROVIDERS: Visit Provider Internal Medicine
DX: Z20.828 Contact with and (suspected) exposure to other viral communicable diseases (principal)
CPT/HCPCS: 36415; 87635; C9803

== ENCOUNTER 2022-08-22 13:32 | Outpatient (REF) | payer OTHER, SELFPAY ==
[2022-08-22 13:53] LABS: COVID-19 Test Negative (Negative); IDNOW Serial# 16C4AD1C
== END 2022-08-22 13:33 | disposition home or self-care (01) ==
LOC: HO.LAB 13:32
PROVIDERS: Visit Provider Internal Medicine
DX: Z20.822 Contact with and (suspected) exposure to COVID-19 (principal)
CPT/HCPCS: 87635

== ENCOUNTER 2022-08-25 14:23 | Outpatient (REF) | payer OTHER, SELFPAY ==
--- NOTE | ~2022-08-25 | XR_ITS ---
EXAMINATION: XR CHEST CLINICAL INFORMATION: Cough COMPARISON: CTA chest 11/23/2021 TECHNIQUE: 2 views of the chest were obtained. FINDINGS: Lungs are clear. No focal consolidation or mass. Normal pulmonary vascularity. No pleural effusion or pneumothorax. Normal heart size. Surgical screws in the right glenoid. No acute osseous abnormality. XR/XR chest 2V IMPRESSION: No acute pulmonary disease.
== END 2022-08-25 14:24 | disposition home or self-care (01) ==
LOC: HO.XRAY 14:23
PROVIDERS: Visit Provider Internal Medicine
DX: R05.9 Cough, unspecified (principal)
CPT/HCPCS: 71046

== ENCOUNTER 2022-11-30 13:19 | Outpatient (REF) | payer OTHER, SELFPAY ==
[2022-11-30 13:36] LABS: MANUAL DIFF FLAG NO
[2022-11-30 14:43] LABS: Basophils Percent Auto 0.4 % (0-2); Eosinophils Absolute Auto 0.5 X10*3/uL (0.0-0.4); Eosinophils Percent Auto 4.7 % (0-4); Hematocrit 46.2 % (37.0-47.0); Hemoglobin 14.7 g/dl (12.0-16.0); Imm Gran Abs Auto 0.04 X10*3/uL (0.00-0.03); Imm Gran Pct Auto 0.4 % (0.0-0.4); Lymphocytes Absolute Auto 2.6 X10*3/uL (1.2-4.9); Lymphocytes Percent Auto 26.3 % (20-40); Mean Corpuscular HGB Conc 31.8 g/dl (31.0-35.0); Mean Corpuscular Hemoglobin 27.1 pg (27.0-33.0); Mean Corpuscular Volume 85.1 fL (80.0-98.0); Monocytes Absolute Auto 1.2 X10*3/uL (0.1-1.2); Monocytes Percent Auto 12.2 % (2-11); Neutrophils Absolute Auto 5.5 x10*3/uL (2.0-8.3); Platelet Count 408 X10*3/uL (160-400); Red Blood Count 5.43 X10*6/uL (4.20-5.50); Red Cell Distribution Width 14.3 % (11.0-16.0); White Blood Count 9.9 X10*3/uL (4.8-10.8)
[2022-11-30 15:21] LABS: D Dimer High Sensitivity < 150 NG/ML
[2022-11-30 16:01] LABS: Alanine Aminotransferase 22 U/L (0-31); Albumin Level 4.5 g/dL (3.5-5.0); Alkaline Phosphatase 80 U/L (39-117); Anion Gap 11 (12-20); Aspartate Amino Transferase 26 U/L (5-31); Bilirubin Direct 0.1 mg/dL (0.0-0.5); Bilirubin Total 0.7 mg/dL (0.0-1.0); Blood Urea Nitrogen 17 mg/dL (9-16); Calcium 9.8 mg/dL (8.4-10.2); Carbon Dioxide 26 mmol/L (22-29); Chloride 109 mmol/L (96-108); Cholesterol 352 mg/dL; Estimated Glomerular Filt Rate 54; Glucose Random 98 mg/dL (60-115); HDL Cholesterol 43 mg/dL; LDL Cholesterol Calculated 239 mg/dl; Potassium 4.3 mmol/L (3.3-5.1); Sodium 142 mmol/L (135-145); Total Protein 7.5 g/dL (6.5-8.0); Triglycerides 352 mg/dL
[2022-11-30 16:18] LABS: TSH reflex Free T4 6.37 uIU/mL (0.32-4.0)
[2022-11-30 17:36] LABS: Free T4 (Free Thyroxine) 0.83 ng/dL (0.71-1.85)
[2022-12-01 12:04] LABS: NT-proBNP 39 pg/mL
== END 2022-11-30 13:20 | disposition home or self-care (01) ==
LOC: HO.LAB 13:19
PROVIDERS: PCP Internal Medicine; Visit Provider Internal Medicine
DX: R53.82 Chronic fatigue, unspecified (principal); E03.9 Hypothyroidism, unspecified; R06.02 Shortness of breath; I10 Essential (primary) hypertension; E78.5 Hyperlipidemia, unspecified
CPT/HCPCS: 36415; 80048; 80061; 80076; 83880; 84439; 84443; 85025; 85379

== ENCOUNTER 2023-02-12 15:58 | Emergency (ER) | payer OTHER, SELFPAY ==
--- NOTE | ~2023-02-12 | XR_ITS ---
EXAMINATION: XR HIP, RIGHT CLINICAL INFORMATION: Pain COMPARISON: None available. TECHNIQUE: Two views of the right hip. Single pelvic image also submitted FINDINGS: Single pelvic image shows 2 part prosthesis on left. Surgical coils left mid to lower abdomen. The SI joints are grossly patent. Detailed imaging of the right hip 2 views demonstrates the femoral head contour to be smooth. The joint spaces fairly well-preserved. There is degeneration along the greater trochanter. No acute fracture or dislocation. Some possible mild inferior and posterior joint space loss There is possible degenerative cystic formation at the labral attachment. XR/XR hip RT w PEL1V IMPRESSION: No acute finding. Some degeneration seen in the right hip.
--- NOTE | ~2023-02-12 | CT_ITS ---
EXAMINATION: CT PELVIS WITHOUT CONTRAST CLINICAL INFORMATION: Question fracture inferior pubic ramus COMPARISON: Plain film same day TECHNIQUE: Helical scanning was performed with submillimeter collimation through the pelvis. Sagittal and coronal multiplanar 2-D reconstructions were obtained. This CT examination was performed using dose optimization techniques as appropriate, variously including the following: *Automated exposure control *Adjustment of mA and/or kV according to patient size (this includes techniques or standardized protocols for targeted exams where dose is matched to indication/reason for exam; i.e. extremities or head) *Use of iterative reconstruction technique DLP: 651 mGy-cm FINDINGS: PELVIS: Exam does demonstrate fracture of the inferior right pubic ramus. Mild prominence of the adjacent musculature may indicate, [place] hematoma. Differential for asymmetric musculature would include atrophy of the contralateral side. No other fracture is seen here. The underlying pelvic structures demonstrate diverticulosis in the sigmoid. Vascular calcifications are noted. CT/CT pelvis wo IV con IMPRESSION: Exam does demonstrate fracture in the right inferior pubic ramus. No other fracture is seen.
[2023-02-12 17:01] VITALS: BP 202/104; PULSE 71; RESP 16; TEMP 36.6; O2SAT 97; BMI 39.9
--- NOTE | 2023-02-12 17:02 | ED_ITS ---
HPI - General Adult General Chief complaint: Extremity Problem Stated complaint: Right hip pain Time Seen by Provider: 02/12/23 18:12 Related Data Home Medications Medication Instructions Recorded Confirmed dicyclomine 10 mg capsule 10 mg PO Q4-6H PRN Abdominal Pain 07/09/20 09/30/21 amlodipine 5 mg tablet 5 mg PO DAILY 03/03/21 09/30/21 carvedilol 12.5 mg tablet 12.5 mg PO BID 03/03/21 09/30/21 citalopram 10 mg tablet 10 mg PO DAILY 03/03/21 09/30/21 lisinopril 20 1 tab PO DAILY 03/03/21 09/30/21 mg-hydrochlorothiazide 25 mg tablet levothyroxine 50 mcg tablet 1 tab PO DAILY 08/10/21 09/30/21 Previous Rx's Medication Instructions Recorded walker #1 ea 08/10/21 acetaminophen 325 mg tablet 650 mg PO Q6H PRN Pain, Mild (Pain 08/19/21 Scale 1-3) 30 days #240 tabs docusate sodium 100 mg capsule 100 mg PO BID 14 days #28 caps 08/19/21 enoxaparin 40 mg/0.4 mL 40 mg (0.4 mL) subcut Q24H 42 days 08/19/21 subcutaneous syringe #16.8 mL ondansetron HCl 4 mg tablet 4 mg PO Q6H PRN nausea and 08/19/21 (Zofran) vomiting 30 days #112 tabs oxycodone 5 mg tablet 5 mg PO Q4H PRN Pain, Moderate 08/19/21 (Pain Scale 4-6 7 days #42 tabs cyclobenzaprine 10 mg tablet 10 mg PO TID PRN muscle spasm 7 11/23/21 days #21 tabs ketorolac 10 mg tablet 10 mg PO TID PRN pain 5 days #20 11/23/21 tabs cephalexin 500 mg capsule 500 mg PO Q6H 7 days #28 caps 05/15/22 ondansetron 4 mg disintegrating 4 mg PO Q8H 3 days #9 tabs 05/15/22 tablet prednisone 20 mg tablet 20 mg PO DAILY 12 days #26 tabs 05/15/22 cephalexin 500 mg capsule 500 mg PO Q6H 3 days #12 caps 05/22/22 doxycycline hyclate 100 mg capsule 100 mg PO BID 10 days #20 caps 05/22/22 tramadol 50 mg tablet 50 mg PO Q6H PRN pain #20 tabs 02/12/23 Allergies Allergy/AdvReac Type Severity Reaction Status Date / Time No Known Allergies Allergy Verified 05/15/22 20:07 [facility] Past Medical History Medical History Cough Depression History of blood transfusion Hx of cardiac murmur Hypertension Hypothyroid IBS (irritable bowel syndrome) Increased BMI Migraines Mild HTN Morbid obesity Personal history of COVID-19 Surgical History History of incisional hernia repair Hx of cholecystectomy Hx of colonoscopy Hx of shoulder surgery Hx of tonsillectomy Hx of total hysterectomy with removal of both tubes and ovaries Social History Social History Are you a primary resident care provider to a significant other at home: No Do you presently have visiting nurse or other home services: No Alcohol intake: current Alcohol intake frequency: a few times a week Patient Tobacco Use Status: Former Tobacco user Quit Date: 1983 Tobacco use type: Cigarette Smoked in Last 30 Days: No Use of substances other than those prescribed or required for medical reasons: Yes Substance Use Type: Marijuana Advance Directives: No Advance Directives Information Provided: No service: No Current occupational status: employed 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 Denies numbness or tingling. No genitourinary symptoms. Denies any lumps or lesions to the groin. Plan: XR R hip Medications Administered Discontinued Medications Generic Name Dose Route Start Last Admin Trade Name Freq PRN Reason Stop Dose Admin Tramadol HCl 50 mg 02/12/23 18:26 02/12/23 19:21 Tramadol Hcl 50 Mg Tablet PO 02/12/23 18:27 50 mg ONCE ONE Administration Discharge Plan Discharge Clinical Impression: Inferior pubic ramus fracture Patient Disposition: Home, Self-Care Instructions: Pelvic Fracture (ED) Additional Instructions: Rest, use walker for ambulation Tramadol for pain Follow-up with orthopedics if pain gets worse Prescriptions: New tramadol 50 mg tablet 50 mg PO Q6H PRN (Reason: pain) Qty: 20 0RF No Action dicyclomine 10 mg Capsule 10 mg PO Q4-6H PRN (Reason: Abdominal Pain) ketorolac 10 mg tablet 10 mg PO TID PRN (Reason: pain) 5 Days Qty: 20 0RF cyclobenzaprine 10 mg tablet 10 mg PO TID PRN (Reason: muscle spasm) 7 Days Qty: 21 0RF Rx Instructions: side effect is drowsiness. Do not take at or while driving. levothyroxine 50 mcg tablet 1 tab PO DAILY acetaminophen 325 mg Tablet 650 mg PO Q6H PRN (Reason: Pain, Mild (Pain Scale 1-3)) 30 Days Qty: 240 0RF docusate sodium 100 mg Capsule 100 mg PO BID 14 Days Qty: 28 0RF oxycodone 5 mg Tablet 5 mg PO Q4H PRN (Reason: Pain, Moderate (Pain Scale 4-6) 7 Days Qty: 42 0RF enoxaparin 40 mg/0.4 mL Syringe 40 mg subcut Q24H 42 Days Qty: 16.8 0RF ondansetron HCl [Zofran] 4 mg tablet 4 mg PO Q6H PRN (Reason: nausea and vomiting) 30 Days Qty: 112 2RF prednisone 20 mg tablet 20 mg PO DAILY 12 Days Qty: 26 0RF Rx Instructions: Take 3 tablets for 5 days THEN; Take 2 tablets for 4 days THEN; Take 1 tablet for 3 days cephalexin 500 mg capsule 500 mg PO Q6H 7 Days Qty: 28 0RF ondansetron 4 mg tablet,disintegrating 4 mg PO Q8H 3 Days Qty: 9 0RF cephalexin 500 mg capsule 500 mg PO Q6H 3 Days Qty: 12 0RF doxycycline hyclate 100 mg capsule 100 mg PO BID 10 Days Qty: 20 0RF lisinopril-hydrochlorothiazide 20-25 mg tablet 1 tab PO DAILY amlodipine 5 mg tablet 5 mg PO DAILY carvedilol 12.5 mg tablet 12.5 mg PO BID Rx Instructions: must administer with a meal/food citalopram 10 mg tablet 10 mg PO DAILY (DME) walker Misc See Rx Instructions .ROUTE .MEDSUPPLY Qty: 1 0RF Rx Instructions: Folding front wheeled walker Stand Alone Forms: Work/School Release Interventions: ED Discharge Assessment Last Done: 02/12/23 20:07 Discharge Date/Time: 02/12/23 20:08
[2023-02-12] MEDS: traMADoL HCL 50 MG TABLET PO (19:21)
--- NOTE | 2023-02-12 19:54 | MHC.EDTECH ---
This tech assumed care of pt at 1900, Patient ambulated to bathroom with minimal discomfort. Vitals taken,call cardoza within reach
[2023-02-12 19:57] VITALS: BP 146/82; PULSE 66; RESP 18; TEMP 36.4; O2SAT 98
--- NOTE | 2023-02-12 19:57 | ED.EXTPRO ---
HPI - Extremity Problem General Chief complaint: Extremity Problem Stated complaint: Right hip pain Time Seen by Provider: 02/12/23 18:12 Source: patient Mode of arrival: ambulatory Limitations: no limitations History of Present Illness HPI Narrative: Patient 62 years old heavy weight with history of osteoarthritis of the hip apparently noticed pain in right hip for last 6 days prior to that patient was walking wearing uncomfortable sandals but no fall patient has right groin pain whenever she put pressure on it. Has history of left THR for osteoarthritis years ago no pain in the left hip no other injuries Related Data Home Medications Medication Instructions Recorded Confirmed dicyclomine 10 mg capsule 10 mg PO Q4-6H PRN Abdominal Pain 07/09/20 09/30/21 amlodipine 5 mg tablet 5 mg PO DAILY 03/03/21 09/30/21 carvedilol 12.5 mg tablet 12.5 mg PO BID 03/03/21 09/30/21 citalopram 10 mg tablet 10 mg PO DAILY 03/03/21 09/30/21 lisinopril 20 1 tab PO DAILY 03/03/21 09/30/21 mg-hydrochlorothiazide 25 mg tablet levothyroxine 50 mcg tablet 1 tab PO DAILY 08/10/21 09/30/21 Previous Rx's Medication Instructions Recorded walker #1 ea 08/10/21 acetaminophen 325 mg tablet 650 mg PO Q6H PRN Pain, Mild (Pain 08/19/21 Scale 1-3) 30 days #240 tabs docusate sodium 100 mg capsule 100 mg PO BID 14 days #28 caps 08/19/21 enoxaparin 40 mg/0.4 mL 40 mg (0.4 mL) subcut Q24H 42 days 08/19/21 subcutaneous syringe #16.8 mL ondansetron HCl 4 mg tablet 4 mg PO Q6H PRN nausea and 08/19/21 (Zofran) vomiting 30 days #112 tabs oxycodone 5 mg tablet 5 mg PO Q4H PRN Pain, Moderate 08/19/21 (Pain Scale 4-6 7 days #42 tabs cyclobenzaprine 10 mg tablet 10 mg PO TID PRN muscle spasm 7 11/23/21 days #21 tabs ketorolac 10 mg tablet 10 mg PO TID PRN pain 5 days #20 11/23/21 tabs cephalexin 500 mg capsule 500 mg PO Q6H 7 days #28 caps 05/15/22 ondansetron 4 mg disintegrating 4 mg PO Q8H 3 days #9 tabs 05/15/22 tablet prednisone 20 mg tablet 20 mg PO DAILY 12 days #26 tabs 05/15/22 cephalexin 500 mg capsule 500 mg PO Q6H 3 days #12 caps 05/22/22 doxycycline hyclate 100 mg capsule 100 mg PO BID 10 days #20 caps 05/22/22 tramadol 50 mg tablet 50 mg PO Q6H PRN pain #20 tabs 02/12/23 Allergies Allergy/AdvReac Type Severity Reaction Status Date / Time No Known Allergies Allergy Verified 05/15/22 20:07 Review of Systems Review of Systems: Yes all other systems are reviewed and are negative [facility] Past Medical History Medical History Cough Depression History of blood transfusion Hx of cardiac murmur Hypertension Hypothyroid IBS (irritable bowel syndrome) Increased BMI Migraines Mild HTN Morbid obesity Personal history of COVID-19 Surgical History History of incisional hernia repair Hx of cholecystectomy Hx of colonoscopy Hx of shoulder surgery Hx of tonsillectomy Hx of total hysterectomy with removal of both tubes and ovaries Social History Social History Are you a primary animal care provider to a significant other at home: No Do you presently have visiting nurse or other home services: No Alcohol intake: current Alcohol intake frequency: a few times a week Patient Tobacco Use Status: Former Tobacco user Quit Date: 1983 Tobacco use type: Cigarette Smoked in Last 30 Days: No Use of substances other than those prescribed or required for medical reasons: Yes Substance Use Type: Marijuana Advance Directives: No Advance Directives Information Provided: No service: No Current occupational status: employed Current occupation: [employer] - [employer] Physical Exam Vital Signs: Vital Signs: Last Vital Signs Temp 97.5 F 02/12/23 19:57 Pulse 66 02/12/23 19:57 Resp 18 02/12/23 19:57 BP 146/82 H 02/12/23 19:57 Pulse Ox 98 02/12/23 19:57 O2 Del Method Room Air 02/12/23 19:57 BMI result Body Mass Index 39.9 Appearance: Alert. Oriented X3. No acute distress. Neck: Normal inspection. Neck supple. CVS: Normal heart rate and rhythm. Pulses normal. Respiratory: No respiratory distress. Equal air entry bilateral, Abdomen: Soft and nontender. Bowel sounds are present, no mass palpable, no CVA tenderness Skin: Skin warm and dry. Normal skin color. Normal skin turgor. Extremities: No lower extremity edema. No calf tenderness dip tenderness right groin area good range of movement of the right hip Neuro: Oriented X 3. No motor deficit. No sensory deficit.No cerebellar signs , cranial nerves II-XII intact Medications Administered Discontinued Medications Generic Name Dose Route Start Last Admin Trade Name Freq PRN Reason Stop Dose Admin Tramadol HCl 50 mg 02/12/23 18:26 02/12/23 19:21 Tramadol Hcl 50 Mg Tablet PO 02/12/23 18:27 50 mg ONCE ONE Administration Medical Decision Making Medical Decision Making [facility] Narrative: Patient x-ray was read negative for fracture by Radiology although I noticed patient had nondisplaced inferior pubic rami fracture of the right side and CT scan was done which confirmed the finding. Patient does have a walker and crutches at home reveal to ambulate discharge patient home on pain management addressed follow with orthopedic Radiology Impression Discussion of test interpretation with radiology: I have reviewed the radiologist's reading. Radiologist Impression: . COMPARISON: None available. TECHNIQUE: Two views of the right hip. Single pelvic image also submitted FINDINGS: Single pelvic image shows 2 part prosthesis on left. Surgical coils left mid to lower abdomen. The SI joints are grossly patent. Detailed imaging of the right hip 2 views demonstrates the femoral head contour to be smooth. The joint spaces fairly well-preserved. There is degeneration along the greater trochanter. No acute fracture or dislocation. Some possible mild inferior and posterior joint space loss There is possible degenerative cystic formation at the labral attachment. XR/XR hip RT w PEL1V IMPRESSION: No acute finding. Some degeneration seen in the right hip. ? Dictated By: Rajinder Baez MD Signed By: <Electronically signed by Rajinder Baez MD in OV> [address] [address] [address] Scan Report Signed Patient: Josi Arvizu MR#: [id number] : 1960 Acct:[id number] Age/Sex: 62 / F ADM Date: 02/12/23 Loc: HO.ED Attending Dr: Ordering Physician: Landon Baker MD Date of Service: 02/12/23 Procedure(s): CT pelvis wo IV con Accession Number(s): [id number] cc: Landon Baker MD~ EXAMINATION: CT PELVIS WITHOUT CONTRAST CLINICAL INFORMATION: Question fracture inferior pubic ramus? COMPARISON: Plain film same day? ? TECHNIQUE: Helical scanning was performed with submillimeter collimation through the pelvis. Sagittal and coronal multiplanar 2-D reconstructions were obtained.? This CT examination was performed using dose optimization techniques as appropriate, variously including the following: *Automated exposure control *Adjustment of mA and/or kV according to patient size (this includes techniques or standardized protocols for targeted exams where dose is matched to indication/reason for exam; i.e. extremities or head) *Use of iterative reconstruction technique DLP: 651 mGy-cm FINDINGS: PELVIS: Exam does demonstrate fracture of the inferior right pubic ramus. Mild prominence of the adjacent musculature may indicate, [place] hematoma. Differential for asymmetric musculature would include atrophy of the contralateral side. No other fracture is seen here. The underlying pelvic structures demonstrate diverticulosis in the sigmoid. Vascular calcifications are noted. CT/CT pelvis wo IV con IMPRESSION: Exam does demonstrate fracture in the right inferior pubic ramus. No other fracture is seen. Discharge Plan Discharge Clinical Impression: Inferior pubic ramus fracture Patient Disposition: Home, Self-Care Instructions: Pelvic Fracture (ED) Additional Instructions: Rest, use walker for ambulation Tramadol for pain Follow-up with orthopedics if pain gets worse Prescriptions: New tramadol 50 mg tablet 50 mg PO Q6H PRN (Reason: pain) Qty: 20 0RF No Action dicyclomine 10 mg Capsule 10 mg PO Q4-6H PRN (Reason: Abdominal Pain) ketorolac 10 mg tablet 10 mg PO TID PRN (Reason: pain) 5 Days Qty: 20 0RF cyclobenzaprine 10 mg tablet 10 mg PO TID PRN (Reason: muscle spasm) 7 Days Qty: 21 0RF Rx Instructions: side effect is drowsiness. Do not take at or while driving. levothyroxine 50 mcg tablet 1 tab PO DAILY acetaminophen 325 mg Tablet 650 mg PO Q6H PRN (Reason: Pain, Mild (Pain Scale 1-3)) 30 Days Qty: 240 0RF docusate sodium 100 mg Capsule 100 mg PO BID 14 Days Qty: 28 0RF oxycodone 5 mg Tablet 5 mg PO Q4H PRN (Reason: Pain, Moderate (Pain Scale 4-6) 7 Days Qty: 42 0RF enoxaparin 40 mg/0.4 mL Syringe 40 mg subcut Q24H 42 Days Qty: 16.8 0RF ondansetron HCl [Zofran] 4 mg tablet 4 mg PO Q6H PRN (Reason: nausea and vomiting) 30 Days Qty: 112 2RF prednisone 20 mg tablet 20 mg PO DAILY 12 Days Qty: 26 0RF Rx Instructions: Take 3 tablets for 5 days THEN; Take 2 tablets for 4 days THEN; Take 1 tablet for 3 days cephalexin 500 mg capsule 500 mg PO Q6H 7 Days Qty: 28 0RF ondansetron 4 mg tablet,disintegrating 4 mg PO Q8H 3 Days Qty: 9 0RF cephalexin 500 mg capsule 500 mg PO Q6H 3 Days Qty: 12 0RF doxycycline hyclate 100 mg capsule 100 mg PO BID 10 Days Qty: 20 0RF lisinopril-hydrochlorothiazide 20-25 mg tablet 1 tab PO DAILY amlodipine 5 mg tablet 5 mg PO DAILY carvedilol 12.5 mg tablet 12.5 mg PO BID Rx Instructions: must administer with a meal/food citalopram 10 mg tablet 10 mg PO DAILY (DME) walker Misc See Rx Instructions .ROUTE .MEDSUPPLY Qty: 1 0RF Rx Instructions: Folding front wheeled walker Stand Alone Forms: Work/School Release Interventions: ED Discharge Assessment Last Done: 02/12/23 20:07 Discharge Date/Time: 02/12/23 20:08
== END 2023-02-12 20:08 | disposition home or self-care (01) ==
PROVIDERS: Emergency Provider Internal Medicine; PCP Internal Medicine
DX: S32.501A Unspecified fracture of right pubis, initial encounter for closed fracture (principal); M25.551 Pain in right hip; W01.0XXA Fall on same level from slipping, tripping and stumbling without subsequent striking against object, initial encounter; Y93.9 Activity, unspecified; Y92.9 Unspecified place or not applicable; Y99.9 Unspecified external cause status; Z87.891 Personal history of nicotine dependence; Z79.899 Other long term (current) drug therapy
CPT/HCPCS: 72192; 73502; 99284

== ENCOUNTER 2023-02-24 08:03 | Outpatient (REF) | payer OTHER, SELFPAY ==
--- NOTE | ~2023-02-24 | XR_ITS ---
EXAMINATION: XR PELVIS CLINICAL INFORMATION: Unspecified pain in the hip. COMPARISON: Pelvic radiograph and 2 views of the right hip done on 02/12/2023. TECHNIQUE: AP view of the pelvis. FINDINGS: Postsurgical changes of left hip arthroplasty is noted. The visualized hardware is intact. Postsurgical changes of prior hernia repair is noted at overlying the left mid abdomen, unchanged. The right hip and the remainder of the pelvis appears intact, unchanged. XR/XR pelvis 1-2V IMPRESSION: Postsurgical changes of left hip arthroplasty showing intact hardware and satisfactory alignment and no evidence of any loosening.
== END 2023-02-24 08:04 | disposition home or self-care (01) ==
LOC: HO.HOSX 08:03
PROVIDERS: PCP Internal Medicine; Visit Provider Physician Assistant
DX: S32.591A Other specified fracture of right pubis, initial encounter for closed fracture (principal)
CPT/HCPCS: 72170

== ENCOUNTER 2023-03-31 14:00 | Outpatient (RCR) | payer OTHER, SELFPAY ==
--- NOTE | 2023-03-23 09:24 | MHC.PT.EP ---
[facility] [place] Office [place] Office [place] Office [address] Felipa Chavarria [address] [phone] F: [phone] F: [phone] F: [phone] F: [phone] Physical Therapy Plan of Care Date of Evaluation: Date of Surgery: Diagnosis: RIGHT PUBIC RAMUS FRACTURE (KP) Assessment: GABINO IS A 62 YO FEMALE EMPLOYEE OF [employer] WHO WORKS IN [employer]. REPORTS PAIN BEGAN INSIDOUSLY IN LATE JANUARY PROGRESSING TO THE POINT THAT SHE WAS UNABLE TO AMBULATE WITHOUT WALKER. TO ED AND UPON CT SCAN FOUND TO HAVE PUBIC RAMUS FRACTURE ON RIGHT. PAIN INCREASES WITH WEIGHT BEARING AND ACTIVITY, IMPROVES WITH REST AND ADVIL. DENIES ANY ALTERED SENSATION OR RADIATING SYMPTOMS. CURRENTLY OOW, GOAL IS TO RETURN TO WORK WITH MINIMAL PAIN, CAN USE ELEVATOR BUT IS REQUIRED TO USE STAIRS INFREQUENTLY. UPON EXAM, IMPAIRMENTS INCLUDE DECREASED HIP ROM AND STRENGTH, ALTERED GAIT AND BALANCE, ALTERED SOFT TISSUE MOBILITY, INCREASED PAIN. FUNCTIONAL LIMITATIONS INCLUDE DECREASED ABILITY TO PERFORM STATIC STANDING, AMBULATION, STAIR NEGOTIATION. SHE IS CURRENTLY OOW AND UNABLE TO PERFORM WORK TASKS AND HIGHER DEMAND HOMEMAKING TASKS. SHE REPORTS DECREASED ABILITY TO PARTICIPATE IN FITNESS AND RECREATIONAL ACTIVITIES. Frequency and Duration: The patient will be seen 2 X WEEK FOR 4 WEEKS Short Term Goals: INITIATE HEP AND PROMOTE SELF MANAGEMENT OF SYMPTOMS [employer] Goals: TO DEMONSTRATE FULL LE ROM, EQUAL SARA TO DEMONSTRATE FULL LE STRENGTH, EQUAL SARA TO ASCEND AND DESCEND STAIRS WITH RECIPROCAL GAIT WITHOUT PAIN GREATER THAN 2/10 TO AMBULATE AD SANDEEP ON LEVEL AND UNEVEN SURFACES FOR RTW FT/FD Treatment Plan: Modalities to reduce pain, spasms and effusion. Manual therapy to restore motion and function. Therapeutic exercise to improve strength and flexibility. Neuromuscular re-education for posture and balance. Therapeutic activities to return to functional activities of daily living. Electronically signed by: BECCA AMAYA PT DPT Please sign and return to therapist. Thank you for your referral.
--- NOTE | 2023-04-27 10:17 | MHC.PT.DC ---
[facility] [place] Office [place] Office [place] Office [address] Felipa Chavarria [address] [phone] F: [phone] F: [phone] F: [phone] F: [phone] Physical Therapy Discharge Report Diagnosis: RIGHT PUBIC RAMUS FRACTURE (KP) Date of Surgery: DOI ~February 10, 2023 Date of Evaluation: 03/22/23 Date of Discharge: 04/27/23 Treatments to Date: 3 Cancellations to Date: 1 No Shows to Date: 2 Discharge Status: Patient Elected to Stop Visit Non-compliance Discharge Summary: Pt no showed for last scheduled visit, unable to reach pt by phone. Current status is unknown. Electronically signed by: Cassi Cox PT DPT Please sign and return to therapist. Thank you for your referral.
== END 2023-04-27 10:17 | disposition home or self-care (01) ==
LOC: HO.PT 14:00
PROVIDERS: PCP Internal Medicine; Visit Provider Physician Assistant
DX: S32.591D Other specified fracture of right pubis, subsequent encounter for fracture with routine healing (principal)
CPT/HCPCS: 97110; 97140; 97161

== ENCOUNTER 2023-04-06 06:30 | Outpatient (REF) | payer OTHER, SELFPAY ==
--- NOTE | ~2023-04-06 | XR_ITS ---
EXAMINATION: XR PELVIS CLINICAL INFORMATION: Pain COMPARISON: Pelvis radiographs 02/24/2023 TECHNIQUE: AP view of the pelvis. FINDINGS: Surgical mesh from prior hernia repair. Status post left total hip arthroplasty. No evidence of hardware fracture or complication. Mild degenerative changes of the right hip with subchondral sclerosis. No definite acute fracture or dislocation on this limited AP view. XR/XR pelvis 1-2V IMPRESSION: 1. Status post left total hip arthroplasty. No evidence of hardware fracture or complication. 2. Mild degenerative changes of the right hip.
== END 2023-04-06 06:31 | disposition home or self-care (01) ==
LOC: HO.HOSX 06:30
PROVIDERS: Visit Provider Physician Assistant
DX: S32.591D Other specified fracture of right pubis, subsequent encounter for fracture with routine healing (principal)
CPT/HCPCS: 72170

== ENCOUNTER 2023-04-06 09:13 | Outpatient (AMB) | payer OTHER, SELFPAY ==
--- NOTE | 2023-04-06 09:24 | MHC.OFFVIS ---
Intake Vital Signs 04/06/23 09:25 Height 5 ft 5 in Weight 240 lb BMI 39.9 Intake Visit Reasons: ov- Inferior pubic ramus fracture Intake Note: Josi pina 62 year old female presents today for a follow up of right inferior pubic ramus fracture. Xrays updated in office. Patient reports that she continues to have significant amount of pain. Shes states having to take 6 advils in a day and will provide little to no relief on some days. She would like to discuss work status. Allergies No Known Allergies Allergy (Verified 04/06/23 09:29) HPI ov- Inferior pubic ramus fracture HPI Details 62-year-old female who returns to the office today for a follow-up of right inferior pubic ramus fracture. She continues to have pain in her right hip and groin region which is aggravated with ambulation. She finds minimal relief with taking 6 Advil tablets in a day. She would like to about her work status. [facility] Medical History Cough Depression History of blood transfusion Hx of cardiac murmur Hypertension Hypothyroid IBS (irritable bowel syndrome) Increased BMI Migraines Mild HTN Morbid obesity Personal history of COVID-19 Surgical History History of incisional hernia repair Hx of cholecystectomy Hx of colonoscopy Hx of shoulder surgery Hx of tonsillectomy Hx of total hysterectomy with removal of both tubes and ovaries Social History Are you a primary neonatal intensive care nurse to a significant other at home: No Do you presently have visiting nurse or other home services: No Alcohol intake: current Alcohol intake frequency: a few times a week Patient Tobacco Use Status: Former Tobacco user Quit Date: 1983 Tobacco use type: Cigarette Substance Use Type: Marijuana service: No Current occupational status: employed 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 No pain with hip flexion. Mild discomfort in the groin with ROm of the right hip. NVI. Results Reviewed Results Reviewed: X-rays of the pelvis obtained in the office today show stable pubic rami fracture with interval healing. Left hip prosthesis intact without any signs of loosening. Assessment & Plan Assessment & Plan (1) Pubic ramus fracture: Code(s): S32.599A - Other specified fracture of unspecified pubis, initial encounter for closed fracture Plan She will continue to work with physical therapy. I did reassure her that there is progress that is being made. I would expect over the next 6-8 weeks some improvement in her pain should be seen which will help her with daily activities. She will remain out of work until our next appointment in 6-8 weeks with new x-rays, sooner if needed. Orders: Orders XR pelvis 1-2V Today M25.559 - Pain in unspecified hip Medications: New celecoxib (Celebrex) 200 mg PO BID 30 days 60 caps 3RF Patient Instructions: Scribed for Shaggy Botello PA-C, by Anjum Acosta, medical interpreter, on 04/06/2023 at 9:30 AM EST. I, Shaggy Botello PA-C, have personally reviewed and agree with the information entered by the scribe. Coding Level of Care Code Global (59313) Diagnoses Pubic ramus fracture S32.599A
[2023-04-06 09:25] VITALS: BMI 39.9
== END 2023-04-06 09:56 | disposition home or self-care (01) ==
PROVIDERS: PCP Internal Medicine; Visit Provider Physician Assistant
DX: S32.591A Other specified fracture of right pubis, initial encounter for closed fracture (principal)
CPT/HCPCS: 99214

== ENCOUNTER 2023-05-19 12:08 | Outpatient (REF) | payer OTHER, SELFPAY ==
--- NOTE | ~2023-05-19 | XR_ITS ---
EXAMINATION: XR PELVIS CLINICAL INFORMATION: Pain. COMPARISON: Radiographs dated 04/06/2023; CT pelvis dated 02/12/2023. TECHNIQUE: 2 AP views of the pelvis are submitted. FINDINGS: There is bony demineralization. Prosthetic components of the left total hip arthroplasty are appropriately aligned. No periprosthetic fracture. The right acetabular joint space is well-maintained. The sacroiliac joints are symmetric and well-maintained. The pubic symphysis is intact. There is a healing fracture of the right inferior pubic ramus. Abdominal herniorrhaphy mesh is noted. XR/XR pelvis 1-2V IMPRESSION: There is an intact left hip total arthroplasty, without hardware failure or loosening noted. 2. No unusual degenerative change is seen of the right hip. 3. There is a healing fracture of the right inferior pubic ramus.
== END 2023-05-19 12:09 | disposition home or self-care (01) ==
LOC: HO.HOSX 12:08
PROVIDERS: Visit Provider Physician Assistant
DX: S32.591D Other specified fracture of right pubis, subsequent encounter for fracture with routine healing (principal)
CPT/HCPCS: 72170

== ENCOUNTER 2023-05-19 12:25 | Outpatient (AMB) | payer OTHER, SELFPAY ==
--- NOTE | 2023-05-19 12:35 | MHC.OFFVIS ---
Intake Intake Visit Reasons: ov- Inferior pubic ramus fracture Intake Note: Josi pina 62 year old female presents today for a follow up of right inferior pubic ramus fracture. Xrays updated in office. Patient reports some discomfort. 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 Allergies No Known Allergies Allergy (Verified 05/19/23 12:39) HPI ov- Inferior pubic ramus fracture HPI Details 62-year-old female who returns to the office today for a follow-up of right pubic rami fracture. She continues to have mild discomfort in her hip but is doing well otherwise. 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 [facility] Medical History Cough Depression History of blood transfusion Hx of cardiac murmur Hypertension Hypothyroid IBS (irritable bowel syndrome) Increased BMI Migraines Mild HTN Morbid obesity Personal history of COVID-19 Surgical History History of incisional hernia repair Hx of cholecystectomy Hx of colonoscopy Hx of shoulder surgery Hx of tonsillectomy Hx of total hysterectomy with removal of both tubes and ovaries Social History Are you a primary home care companion to a significant other at home: No Do you presently have visiting nurse or other home services: No Alcohol intake: current Alcohol intake frequency: a few times a week Patient Tobacco Use Status: Former Tobacco user Quit Date: 1983 Tobacco use type: Cigarette Substance Use Type: Marijuana service: No Current occupational status: employed 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 No pain with hip flexion.No discomfort in the groin with ROm of the right hip. NVI. Results Reviewed Results Reviewed: X-rays of the pelvis obtained in the office today show stable pubic rami fracture with callus formation. Left hip prosthesis intact without any signs of loosening. Assessment & Plan Assessment & Plan (1) Pubic ramus fracture: Code(s): S32.599A - Other specified fracture of unspecified pubis, initial encounter for closed fracture Qualifiers: Encounter type: subsequent encounter Fracture type: closed Laterality: right Fracture healing: with routine healing Qualified Code(s): S32.591D - Other specified fracture of right pubis, subsequent encounter for fracture with routine healing Plan She is going to increase activity as tolerated. She will return to work on 05/22/23 with no restrictions. If symptoms persist or worsens, patient will contact the office, otherwise follow-up as needed. Orders: Orders XR pelvis 1-2V Today M25.559 - Pain in unspecified hip Patient Instructions: Scribed for Shaggy Botello PA-C, by Anjum Acosta medical and scientific illustrator, on 05/19/2023 at 12:30 PM EST. IShaggy PA-C, have personally reviewed and agree with the information entered by the scribe. Coding Level of Care Code Global (44401) Diagnoses Closed fracture of ramus of right pubis with routine healing, subsequent encounter S32.591D Encounter type: subsequent encounter Fracture type: closed Laterality: right Fracture healing: with routine healing
== END 2023-05-19 12:47 | disposition home or self-care (01) ==
PROVIDERS: PCP Internal Medicine; Visit Provider Physician Assistant
DX: S32.591D Other specified fracture of right pubis, subsequent encounter for fracture with routine healing (principal)
CPT/HCPCS: 99213

== ENCOUNTER 2025-02-05 12:50 | Outpatient (REF) | payer OTHER, SELFPAY ==
--- NOTE | ~2025-02-05 | XR_ITS ---
EXAMINATION: XR HIP, RIGHT CLINICAL INFORMATION: RIGHT HIP PAIN COMPARISON: February 12, 2023 TECHNIQUE: Two views of the right hip. AP pelvis. FINDINGS: Sclerosis along the articular surface of the right acetabulum and right femoral head with minimal subchondral cyst formation and asymmetric joint space narrowing. No acute cortical disruption or malalignment, right coxofemoral joint. Total left hip arthroplasty prosthesis not fully included in the [id number]. Metallic coils in the mid and left midline lower abdomen wall. XR/XR hip RT w [id number] IMPRESSION: Mild to moderate osteoarthrosis, right hip without acute fracture or dislocation. Electronically signed by: Fabien Irving MD 02/05/2025 02:04 PM EDT
[2025-02-05 14:08] LABS: MANUAL DIFF FLAG NO
--- OUTSIDE RECORDS SUMMARY | 2025-02-05 14:42 | XMS_ITS | Patient Health Record ---
Author Organization [facility] Address [address] [place] [id number] Care Team Providers Care Supervisor Inspection Room Name Role Phone Collins Irene MD Primary Care Provider Unavail able Morales Deras Unavailable [phone] Reason For Referral No Information Medications Medication SIG (Take, Route, Frequency, Duration) Notes Start Date End Date Status Ibuprofen PRN Active Lisinopril-hydroCHLOROthiaz samson Active Dicyclomine HCl 10 MG 1-2 Orally Q 4-6 h ours prn abdominal pain or cramps for 30 day(s) 05/13/2020 Active Immunizations Vaccine Route Administration Date Status Comme nts Influenza Unknown 05/22/2019 Administered Social History Tobacco Use: Social History Observation Description Date Details (start date - stop date) Former Smoker NA - NA Tobacco Use/Smoking Question Answer Notes Patient is a former smoker When did you stop smoking? 36 years ago How long has it been since you last smoked? > 10 years Alcohol Screen Question Answer Notes Did you have a drink contain ing alcohol in the past year? Yes How often did you have a dri nk containing alcohol in the past year? 2 to 4 times a month (2 points) How many drinks did you have on a typical day when you were drinking in the past year? 3 or 4 drinks (1 point) How often did you have 6 or more drinks on one occasion in the past year? Never (0 point) Points 3 Interpretation Positive Section Notes: Nonsmoker; no sig alcohol Problems Problem Type SNOMED Code ICD Code Onset Dates Problem Status W/U Status Risk Notes Problem 612632777 Encounter for screening for malignant neoplasm of colon (Z12.11) Active confirmed Problem 185299779 Periumbilical pa in (R10.33) Active confirmed Problem 53028952 Pharyngoesophage al dysphagia (R13.14) Active confirmed Problem 54540503 Irritable bowel syndrome, unspecified type (K58.9) Active confirmed Plan Of Treatment Pending Test Test Name Order Date US ABD 05/13/2020 US abdomen limited 09/16/2020 Future Test Test Name Order Date UPPER GI ENDOSCOPY 05/13/2020 COLONOSCOPY 05/13/2020 Insurance Providers Payer Name Payer Address Payer Phone Subscriber Number Group Number Insured Name Patient Relationship to Insured Coverage Start Date Coverage End Date [employer] [place] [address] [address] [place] [address] [id number] GABINO NELSON Self - patient is the insured Medical (General) History Medical History History ICD Code Hypertension Migraines Denies [place],DM,CVA,Lung disease,renal dise ase Negative upper endoscopy and colonoscopy at age 45 in [place] for the evaluation of anemia--duodenal biopsies were reportedly negative Heart murmur-has periodic Echocardiogram s Surgical History Surgery Date(Month/Year) Tonsillectomy Hernia repair-abdominal wall/incisional Hysterectomy with BSO Cholecystectomy Shoulder surgery Cyst removal - in right hand
[2025-02-05 14:52] LABS: Basophils Percent Auto 0.3 % (0-2); Eosinophils Absolute Auto 0.3 X10*3/uL (0.0-0.4); Hematocrit 43.2 % (37.0-47.0); Hemoglobin 13.3 g/dl (12.0-16.0); Imm Gran Abs Auto 0.05 X10*3/uL (0.00-0.03); Imm Gran Pct Auto 0.5 % (0.0-0.4); Lymphocytes Percent Auto 29.7 % (20-40); Mean Corpuscular HGB Conc 30.8 g/dl (31.0-35.0); Mean Corpuscular Hemoglobin 26.8 pg (27.0-33.0); Mean Corpuscular Volume 87.1 fL (80.0-98.0); Mean Platelet Volume 10.8 fL (9.4-12.3); Monocytes Absolute Auto 1.3 X10*3/uL (0.1-1.2); Monocytes Percent Auto 12.5 % (2-11); Neutrophils Absolute Auto 5.4 x10*3/uL (2.0-8.3); Platelet Count 381 X10*3/uL (160-400); Red Blood Count 4.96 X10*6/uL (4.20-5.50); Red Cell Distribution Width 13.4 % (11.0-16.0); White Blood Count 10.1 X10*3/uL (4.8-10.8)
[2025-02-05 15:33] LABS: Alanine Aminotransferase 22 U/L (0-31); Albumin Level 4.1 g/dL (3.5-5.0); Alkaline Phosphatase 83 U/L (39-117); Anion Gap 11 (12-20); Aspartate Amino Transferase 28 U/L (5-31); Bilirubin Total 0.3 mg/dL (0.0-1.0); Blood Urea Nitrogen 17 mg/dL (9-16); Carbon Dioxide 27 mmol/L (22-29); Chloride 108 mmol/L (96-108); Cholesterol 229 mg/dL (<200); Estimated Glomerular Filt Rate > 60; Glucose Random 90 mg/dL (60-115); HDL Cholesterol 43 mg/dL (>40); LDL Cholesterol Calculated 153 mg/dL (<100); Potassium 3.9 mmol/L (3.3-5.1); Sodium 142 mmol/L (135-145); Total Protein 7.2 g/dL (6.5-8.0); Triglycerides 169 mg/dL (<150)
[2025-02-05 15:50] LABS: TSH reflex Free T4 6.83 uIU/mL (0.32-4.0)
[2025-02-05 16:57] LABS: Free T4 (Free Thyroxine) 0.85 ng/dL (0.71-1.85)
[2025-02-05 17:16] LABS: Reflex LDLD? No
== END 2025-02-05 12:51 | disposition home or self-care (01) ==
LOC: HO.XRAY 12:50
PROVIDERS: Visit Provider Physician Assistant
DX: M25.551 Pain in right hip (principal); I10 Essential (primary) hypertension; R01.1 Cardiac murmur, unspecified; E03.9 Hypothyroidism, unspecified
CPT/HCPCS: 36415; 73502; 80053; 80061; 84439; 84443; 85025

== ENCOUNTER → 2025-02-05 13:03 | Outpatient (BNV) | payer OTHER, SELFPAY | PROVIDERS: Visit Provider Radiology Diagnostic Radiology | DX: M25.551 Pain in right hip (principal) | CPT/HCPCS: 73502 ==

== ENCOUNTER 2025-02-06 12:08 | Outpatient (REF) | payer OTHER, SELFPAY ==
--- OUTSIDE RECORDS SUMMARY | 2025-02-06 13:26 | XMS_ITS | Patient Health Record ---
Author Organization [facility] Address [address] [place] [phone] Care Team Providers Care Photographic Lithographer Name Role Phone Collins Irene MD Primary Care Provider Unavail able Morales Deras Unavailable [phone] Reason For Referral No Information Medications Medication [...] Problem Status W/U Status Risk Notes Problem 593690833 Encounter for screening for malignant neoplasm of colon (Z12.11) Active confirmed Problem 681462303 Periumbilical pa in (R10.33) Active confirmed Problem 42768364 Pharyngoesophage al dysphagia (R13.14) Active confirmed Problem 77887206 Irritable bowel syndrome, unspecified type (K58.9) Active [...] Coverage End Date [employer] [place] [address] [address] [place] [address] [id number] 8 GABINO NELSON Self - patient is the insured Medical (General) History Medical History History ICD Code Hypertension Migraines Denies [place],DM,CVA,Lung disease,renal dise ase Negative upper endoscopy and colonoscopy at age 45 in [place] for the evaluation of anemia--duodenal biopsies were reportedly negative Heart murmur-has periodic Echocardiogram s Surgical History Surgery Date(Month/Year) Tonsillectomy Hernia repair-abdominal wall/incisional Hysterectomy with BSO Cholecystectomy Shoulder surgery Cyst removal - in right hand
== END 2025-02-06 12:09 | disposition home or self-care (01) ==
LOC: HO.HOSX 12:08
PROVIDERS: Visit Provider Physician Assistant
DX: Z13.89 Encounter for screening for other disorder (principal)

== ENCOUNTER 2025-02-06 13:41 | Outpatient (AMB) | payer OTHER, SELFPAY ==
--- NOTE | 2025-02-06 13:48 | MHC.OFFVIS ---
Intake Visit Reasons: OV- right hip pain Intake Note: Josi pina 64 year old female presents today for an evaluation of right hip pain. Patient was last seen in 2022 for a pubic ramus fracture. Hx of left hip replacement in 2020. Today patient reports her pain has been present for the past 4-5 months. However the past 2 weeks her pain increased after she was standing and had stumbled at work falling back into a wall. Her pain is located in her groin and her lower back, stating her pain is located where she broke her hip 2 years ago. No numbness or tingling. Finds some relief with ibuprofen, however concerned of GI bleed. Allergies No Known Allergies Allergy (Verified 02/06/25 13:57) Medication List - Last Reconciled 02/06/25 by Shaggy Botello PA-C amlodipine 5 mg PO DAILY carvedilol 12.5 mg PO DAILY levothyroxine 1 tab PO DAILY lisinopril-hydrochlorothiazide 20-25 mg 1 tab PO DAILY walker Folding front wheeled walker HPI HPI OV- right hip pain: Details: 64-year-old female who presents to the office today for right hip pain. She states she has had intermittent discomfort in the right hip for quite a while however 2 weeks ago she recalls losing her footing and putting all her pressure on the right side and then losing her balance going backwards. Since this incident she has noticed discomfort with lifting the leg getting in and out of a car. She denies numbness or tingling down the leg. She denies low back pain. [facility] Medical History Cough Depression History of blood transfusion Hx of cardiac murmur Hypertension Hypothyroid IBS (irritable bowel syndrome) Increased BMI Migraines Mild HTN Morbid obesity Personal history of COVID-19 Surgical History Hx of colonoscopy Hx of shoulder surgery Hx of cholecystectomy Hx of total hysterectomy with removal of both tubes and ovaries History of incisional hernia repair Hx of tonsillectomy Social History Are you a primary hearing care practitioner to a significant other at home: No Do you presently have visiting nurse or other home services: No Alcohol intake: current Alcohol intake frequency: a few times a week Patient Tobacco Use Status: Former Tobacco user Tobacco use type: Cigarette Substance Use Type: Marijuana service: No Current occupational status: employed Current occupation: [employer] - [employer] Review of Systems Const All systems reviewed & are unremarkable except as noted in HPI and below Physical Exam Extrem Other: Right hip is normal to inspection. She has mild discomfort with range of motion of the hip. She does have discomfort with hip flexion, abduction and adduction all against resistance. No tenderness over the SI joint. Calf is supple and nontender neurovascularly intact. Results Reviewed Results Reviewed: X-rays of the right hip obtained on 02/05/2025 show mild arthritis otherwise no fractures or chronic abnormalities. Assessment & Plan Assessment & Plan (1) Tendonitis of right hip flexor: Code(s): M76.891 - Other specified enthesopathies of right lower limb, excluding foot Category: Medical Plan: I discussed with the patient options which include conservative management including anti-inflammatories and physical therapy. I did send her a prescription for Celebrex to take twice a day for 2 weeks to help with her inflammation. I also sent a prescription for physical therapy to work on hip flexor stretching exercises and glute strengthening exercises. She should advance activities as tolerated. She may have occasional flare-ups given the multiple injury she has had on this side which also includes an old pubic rami fracture. If symptoms persist or worsen she will contact our office otherwise follow up as needed. Orders: Orders PT Evaluation and Treatment Today M76.891 - Other specified enthesopathies of right lower limb, excluding foot Medications: New celecoxib (Celebrex) 200 mg PO BID 60 caps 3RF 30 days Coding Level of Care Code Est Pt Level 3 (62132) Complex EM visit Add On G2211 Diagnoses Tendonitis of right hip flexor M76.891
== END 2025-02-06 14:23 | disposition home or self-care (01) ==
LOC: HO.HOS 13:41
PROVIDERS: Visit Provider Physician Assistant
DX: M76.891 Other specified enthesopathies of right lower limb, excluding foot (principal); M25.551 Pain in right hip
CPT/HCPCS: 99213

== ENCOUNTER 2025-03-19 08:26 | Outpatient (AMB) | payer OTHER, SELFPAY ==
--- NOTE | 2025-03-19 08:33 | A.OFFVIS_ITS ---
Vital Signs 03/19/25 08:36 Height 5 ft 5 in Weight 270 lb BMI 44.9 Intake Visit Reasons: ov- RT hip pain Intake Note: Josi a 64 year old female who presents today for a follow up on right hip pain. At her last visit on 02/06/25, she was referred to attend physical therapy. Patient reports she has not strated P.T yet due to work schedule conflict. Reports her pain spikes up to 10/10 in pain scale. States she is taking advil with some relief. Allergies No Known Allergies Allergy (Verified 03/19/25 08:36) HPI HPI ov- RT hip pain: Details: 64 yo female presents to the office today for f/u right hip pain she continues to have pain with daily activities especially with getting up from a seated position. She states it does take her some time to get settled before she can take a step because she feels unsteady and as though her hip will give out. She has yet to begin physical therapy. She is concerned if she has physical therapy he will cause a flare-up and she will be unable to perform activities such as working. [facility] Medical History Cough Depression History of blood transfusion Hx of cardiac murmur Hypertension Hypothyroid IBS (irritable bowel syndrome) Increased BMI Migraines Mild HTN Morbid obesity Personal history of COVID-19 Surgical History Hx of colonoscopy Hx of shoulder surgery Hx of cholecystectomy Hx of total hysterectomy with removal of both tubes and ovaries History of incisional hernia repair Hx of tonsillectomy Social History Are you a primary hospice patient care secretary to a significant other at home: No Do you presently have visiting nurse or other home services: No Alcohol intake: current Alcohol intake frequency: a few times a week Patient Tobacco Use Status: Former Tobacco user Tobacco use type: Cigarette Substance Use Type: Marijuana service: No Current occupational status: employed 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 She has mild discomfort with range of motion of the hip but no limited motion. Assessment & Plan Assessment & Plan (1) Osteoarthritis of right hip: Code(s): M16.11 - Unilateral primary osteoarthritis, right hip Category: Medical Plan: I discussed at length with the patient options available which includes working with physical therapy to work on conditioning exercises. We also discussed the extent of her arthritis on the right and I compared her current x-rays to her preop x-rays on her left prior to hip replacement. I did explain she has some mild sclerosis of the right hip however there is no significant joint collapse. I did discuss the role of MRI imaging to see more detailed evaluation of her joint space and cartilage. I also discussed the role of steroid injection into the joint to see if this helps her discomfort. It can also be used to help rule out intra-articular pathology versus bursitis/tendonitis. The patient is content with this plan, an MRI of the right hip along with an intra-articular right hip injection have both been ordered today. I do recommend the patient schedule a [address] Chris once the injection has been done for follow-up to discuss potential total hip arthroplasty on the right. Orders: Orders FL Guided Asp Inj Major Jt RT Today M16.11 - Unilateral primary osteoarthritis, right hip MR hip RT wo con Today M16.11 - Unilateral primary osteoarthritis, right hip Coding Level of Care Code Est Pt Level 3 (42362) Complex EM visit Add On G2211 Diagnoses Osteoarthritis of right hip M16.11
[2025-03-19 08:36] VITALS: BMI 44.9
--- OUTSIDE RECORDS SUMMARY | 2025-03-19 08:38 | XMS_ITS | Patient Health Record ---
Author Organization [facility] Address [address] [place] [id number] Care Team Providers Care Social Sciences Instructor Name Role Phone Collins Irene MD Primary Care Provider Unavail able Morales Deras Unavailable [phone] Reason For Referral No Information Medications Medication [...] Problem Status W/U Status Risk Notes Problem 962808236 Encounter for screening for malignant neoplasm of colon (Z12.11) Active confirmed Problem 905945075 Periumbilical pa in (R10.33) Active confirmed Problem 53008883 Pharyngoesophage al dysphagia (R13.14) Active confirmed Problem 82013725 Irritable bowel syndrome, unspecified type (K58.9) Active [...] Coverage End Date [employer] [place] [address] [address] [place] [address] [id number] GABINO NELSON Self - patient is the insured Medical (General) History Medical History History ICD Code Hypertension Migraines Denies [place],DM,CVA,Lung disease,renal dise ase Negative upper endoscopy and colonoscopy at age 45 in [place] for the evaluation of anemia--duodenal biopsies were reportedly negative Heart murmur-has periodic Echocardiogram s Surgical History Surgery Date(Month/Year) Tonsillectomy Hernia repair-abdominal wall/incisional Hysterectomy with BSO Cholecystectomy Shoulder surgery Cyst removal - in right hand
== END 2025-03-19 09:02 | disposition home or self-care (01) ==
LOC: HO.HOS 08:27
PROVIDERS: Visit Provider Physician Assistant
DX: M16.11 Unilateral primary osteoarthritis, right hip (principal)
CPT/HCPCS: 99213

== ENCOUNTER → 2025-04-04 08:41 | Outpatient (BNV) | payer OTHER, SELFPAY | PROVIDERS: Visit Provider Specialist | DX: M16.11 Unilateral primary osteoarthritis, right hip (principal) | CPT/HCPCS: 73721 ==

== ENCOUNTER 2025-04-04 08:43 | Outpatient (REF) | payer OTHER, SELFPAY ==
--- NOTE | ~2025-04-04 | FL_ITS ---
EXAMINATION: Fluoroscopy-guided right hip steroid injection. CLINICAL INDICATION: Unilateral primary osteoarthritis right hip. COMPARISON: MRI hip 04/04/2025 TECHNIQUE: Following explaining fluoroscopy-guided right hip steroid injection procedure, benefits and risk, a written consent was obtained. Patient was placed supine on fluoroscopy table and an marker placed on the skin overlying the right hip joint space. The marker was area was cleaned and draped with 2% chlorhexidine solution. 1% lidocaine was injected at puncture site. A 22-gauge spinal needle was then advanced from the skin to the lateral border of right femoral neck and 2 mL of nonionic contrast was injected. A single image was obtained demonstrating contrast in the joint space. Subsequently 80 g of Depo-Medrol, 2 mL of and 7 mL of 1% lidocaine was injected as 10 mL of combo and needle withdrawn. Complete hemostasis achieved at puncture site. 1 simple Band-Aid applied postprocedure. Patient tolerated procedure extremely well. Findings/ FL/FL Guided Asp Inj Major Jt RT impression: Successful fluoroscopy-guided right hip steroid injection performed without immediate complications. Fluoroscopy time: 24 seconds. Dose area product: 7 19 mGy/m2. Electronically signed by: Antonio Neff MD 04/07/2025 09:26 AM EDT
--- NOTE | ~2025-04-04 | MR_ITS ---
CLINICAL HISTORY: M16.11 - Unilateral primary osteoarthritis, right hip MR right hip without gadolinium Comparison: None provided Findings: No acute fracture or pathologic bone lesion. No femoral neck bony protuberances. Normal acetabular version. There is a large hip joint effusion. There are changes of severe osteoarthritis with subchondral femoral head changes No acetabular labral tears. Musculotendinous structures are intact. IMPRESSION: Severe hip joint osteoarthritis with large joint effusion This document has been electronically signed by: Semaj Best MD on 04/05/2025 08:50:05
--- OUTSIDE RECORDS SUMMARY | 2025-04-04 09:03 | XMS_ITS | Patient Health Record ---
Author Organization [facility] Address [address] [place] [id number] Care Team Providers Care Plaster Molder Name Role Phone Collins Irene MD Primary Care Provider Unavail able Morales Deras Unavailable [phone] Reason For Referral No Information Medications Medication [...] Problem Status W/U Status Risk Notes Problem 429065034 Encounter for screening for malignant neoplasm of colon (Z12.11) Active confirmed Problem 553447068 Periumbilical pa in (R10.33) Active confirmed Problem 06539055 Pharyngoesophage al dysphagia (R13.14) Active confirmed Problem 59411286 Irritable bowel syndrome, unspecified type (K58.9) Active [...] Coverage End Date [employer] [place] [address] [address] [place] [address] [id number] GABINO NELSON Self - patient is the insured Medical (General) History Medical History History ICD Code Hypertension Migraines Denies [place],DM,CVA,Lung disease,renal dise ase Negative upper endoscopy and colonoscopy at age 45 in [place] for the evaluation of anemia--duodenal biopsies were reportedly negative Heart murmur-has periodic Echocardiogram s Surgical History Surgery Date(Month/Year) Tonsillectomy Hernia repair-abdominal wall/incisional Hysterectomy with BSO Cholecystectomy Shoulder surgery Cyst removal - in right hand
[2025-04-04] MEDS: iohexoL 300 MG/ML 50 ML INFUS..BTL 6 ML INTRAARTIC (11:20)
[2025-04-04] MEDS: Lidocaine HCl 1 % MPF 30 ML VIAL 5 ML INTRAARTIC (11:21)
== END 2025-04-04 08:44 | disposition home or self-care (01) ==
LOC: HO.MRI 08:43
PROVIDERS: Visit Provider Physician Assistant
DX: M16.11 Unilateral primary osteoarthritis, right hip (principal)
CPT/HCPCS: 20610; 73721; 77002; J1010; J2003; Q9967

== ENCOUNTER 2025-04-25 13:32 | Outpatient (AMB) | payer OTHER, SELFPAY ==
--- NOTE | 2025-04-25 13:41 | A.OFFVIS_ITS ---
Vital Signs 04/25/25 13:43 Height 5 ft 5 in Weight 270 lb BMI 44.9 Intake Visit Reasons: OV-Right hip MRI review Intake Note: Josi a 64 year old female who presents today for an MRI review of right hip. Patient reports no change in her symptoms since her last visit. Allergies No Known Allergies Allergy (Verified 04/25/25 13:42) Medication List - Last Reconciled 04/30/25 by Shaggy Botello PA-C amlodipine 5 mg PO DAILY celecoxib (Celebrex) 200 mg PO BID 30 days levothyroxine 1 tab PO DAILY lisinopril-hydrochlorothiazide 20-25 mg 1 tab PO DAILY walker Folding front wheeled walker HPI HPI OV-Right hip MRI review: Details: 64-year-old female returns to the office today for a follow-up right hip pain status post MRI. She continues to have daily discomfort with everyday activities such as getting in and out of a car climbing stairs or walking. [facility] Medical History Cough Depression History of blood transfusion Hx of cardiac murmur Hypertension Hypothyroid IBS (irritable bowel syndrome) Increased BMI Migraines Mild HTN Morbid obesity Personal history of COVID-19 Surgical History Hx of colonoscopy Hx of shoulder surgery Hx of cholecystectomy Hx of total hysterectomy with removal of both tubes and ovaries History of incisional hernia repair Hx of tonsillectomy Social History Are you a primary director career to a significant other at home: No Do you presently have visiting nurse or other home services: No Alcohol intake: current Alcohol intake frequency: a few times a week Patient Tobacco Use Status: Former Tobacco user Tobacco use type: Cigarette Substance Use Type: Marijuana service: No Current occupational status: employed 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 She has mild discomfort with range of motion of the hip but no limited motion. Results Reviewed Results Reviewed: MRI rt hip IMPRESSION: Severe hip joint osteoarthritis with large joint effusion Assessment & Plan Assessment & Plan (1) Osteoarthritis of right hip: Code(s): M16.11 - Unilateral primary osteoarthritis, right hip Category: Medical Plan: We discussed options today which includes conservative versus surgical intervention. The patient has failed conservative management at this time and she had a left total hip arthroplasty with success and would be interested in pursuing this on the right. Given her limitations with daily activities and findings on imaging studies she would be a good candidate. At this time she needs to sort out some stuff at home before proceeding. She will contact us when she wants to proceed with right total hip arthroplasty with Dr. Chris. Coding Level of Care Code Est Pt Level 3 (05217) Complex EM visit Add On G2211 Diagnoses Osteoarthritis of right hip M16.11
[2025-04-25 13:43] VITALS: BMI 44.9
--- OUTSIDE RECORDS SUMMARY | 2025-04-25 13:53 | XMS_ITS | Patient Health Record ---
Author Organization [facility] Address [address] [place] [address] Care Team Providers Care Computerized Mill Mill Recorder Name Role Phone Collins Irene MD Primary Care Provider Unavail able Morales Deras Unavailable [phone] Reason For Referral No Information Medications Medication [...] Problem Status W/U Status Risk Notes Problem 619997470 Encounter for screening for malignant neoplasm of colon (Z12.11) Active confirmed Problem 270818578 Periumbilical pa in (R10.33) Active confirmed Problem 65103044 Pharyngoesophage al dysphagia (R13.14) Active confirmed Problem 16484072 Irritable bowel syndrome, unspecified type (K58.9) Active [...] Coverage End Date [employer] [place] [address] [address] [place] [address] [id number] GABINO NELSON Self - patient is the insured Medical (General) History Medical History History ICD Code Hypertension Migraines Denies [place],DM,CVA,Lung disease,renal dise ase Negative upper endoscopy and colonoscopy at age 45 in [place] for the evaluation of anemia--duodenal biopsies were reportedly negative Heart murmur-has periodic Echocardiogram s Surgical History Surgery Date(Month/Year) Tonsillectomy Hernia repair-abdominal wall/incisional Hysterectomy with BSO Cholecystectomy Shoulder surgery Cyst removal - in right hand
== END 2025-04-25 13:55 | disposition home or self-care (01) ==
LOC: HO.HOS 13:32
PROVIDERS: Visit Provider Physician Assistant
DX: M16.11 Unilateral primary osteoarthritis, right hip (principal)
CPT/HCPCS: 99213

== ENCOUNTER → 2025-04-25 13:32 | Outpatient (BNVA) | payer OTHER, SELFPAY | PROVIDERS: Visit Provider Physician Assistant | DX: M16.11 Unilateral primary osteoarthritis, right hip (principal); Z87.891 Personal history of nicotine dependence; Z13.89 Encounter for screening for other disorder ==